=== PATIENT | female | born 1945 | race Caucasian/White ===

== ENCOUNTER 2016-09-02 15:45 | Observation (INO) ==
[2016-09-02] MEDS ORDERED: *HR* Morphine 2 MG/ML SYRINGE IVP ONE (16:19)
--- NOTE | 2016-09-02 16:36 | Emergency Department Note ---
Disposition Clinical Impression: UTI (urinary tract infection) Qualifiers: Urinary tract infection type: acute cystitis Hematuria presence: with hematuria Qualified Code(s): N30.01 - Acute cystitis with hematuria Fall Qualifiers: Encounter type: initial encounter Qualified Code(s): W19.XXXA - Unspecified fall, initial encounter Wrist pain Qualifiers: Laterality: right Qualified Code(s): M25.531 - Pain in right wrist Disposition: Admitted As Inpatient Condition: Fair Referrals: Emmett Perez MD [Partnered Physician] - Forms: ED Satisfaction Letter General Adult HPI - General Chief complaint: ED Fall Stated complaint: fall, R wrist, back injuries Time Seen by Provider: 09/02/16 16:11 Source: patient Mode of arrival: wheelchair Limitations: no limitations Nursing Notes Reviewed: Yes Vital Signs Reviewed: Yes - History of Present Illness HPI Narrative: 71-year-old female who reports that she has had a urinary tract infection for approximately 4 days. She describes it as being crampy suprapubic pain with difficulty with urination and burning. She states she has had this before. She does live at home with her daughter who works all the time and she is concerned about her safety at home she fell earlier today and injured her wrist. She came to her family practitioner who sent her to the emergency department. She states that she does not think she can live at home by herself anymore and would like be placed back in a nursing facility. She denies hitting her head or having any neck pain. She does state that she is having some low lumbar pain after the fall. Radiation: non-radiation Pain Severity: severe Pain Scale: 9 Consistency: constant Improves with: nothing Worsens with: movement Associated symptoms: Reports: denies other symptoms Treatments Prior to Arrival: none - Related Data Home Medications Medication Instructions Recorded Confirmed Aspirin Enteric Coated [Aspirin EC] 81 mg PO DAILY 02/20/16 07/10/16 Clopidogrel [Plavix] 75 mg PO DAILY 02/20/16 07/10/16 Duloxetine [Cymbalta] 30 mg PO DAILY 02/20/16 07/10/16 Gabapentin [Neurontin] 600 mg PO QID PRN 02/20/16 07/10/16 Mv,Calcium,Min/Iron/Folic/Vitk 1 tab PO DAILY 02/20/16 07/10/16 [Multi For Her Tablet] Potassium Chloride [K-Tab ER] 20 meq PO BID 02/20/16 07/10/16 TraZODone 50 - 100 mg PO HS 02/20/16 07/10/16 Nystatin/Triamcinolone CRM 1 appl TP QID 06/13/16 07/10/16 [Mycolog] Polyvinyl Alcohol/Povidone/Pf 1 drop OP TID 06/13/16 07/10/16 [Refresh Classic Eye Drops] Vit C/E/Zn/Coppr/Lutein/Zeaxan 1 cap PO DAILY 06/13/16 07/10/16 [Preservision Areds 2 Softgel] Ascorbate Calcium [Vitamin C] 500 mg PO DAILY 07/02/16 07/10/16 Cholecalciferol (Vitamin D3) 1,000 unit PO DAILY 07/02/16 07/10/16 [Vitamin D3] Cyanocobalamin (Vitamin B-12) 1,000 mcg PO DAILY 07/02/16 07/10/16 [Vitamin B12] Simvastatin [Zocor] 20 mg PO DAILY 07/02/16 07/10/16 Previous Rx's Medication Instructions Recorded ClonazePAM [Klonopin] 0.5 mg PO BID PRN #15 tablet 07/16/16 Cyclobenzaprine [Flexeril] 5 mg PO TID #45 tablet 07/16/16 Fludrocortisone Acetate [Florinef] 0.1 mg PO DAILY #30 tablet 07/16/16 HYDROcodone/Acet 7.5/325 mg [Orrum 1 tab PO Q6H PRN #20 tablet 07/16/16 7.5-325 mg] Mirtazapine [Remeron] 7.5 mg PO HS #15 tablet 07/16/16 Allergies Allergy/AdvReac Type Severity Reaction Status Date / Time Sulfa (Sulfonamide Allergy Rash Verified 06/13/16 06:51 Antibiotics) All systems ED: reviewed and negative except as stated. Constitutional: Denies: fever Eyes: Denies: vision change ENT ED: Denies: throat pain Cardiovascular: Denies: chest pain Respiratory: Denies: cough Gastrointestinal: Denies: abdominal pain Musculoskeletal: Reports: back pain. 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 Absent: tenderness - Chest Chest inspection: Present: normal inspection - Respiratory Respiratory exam: Present: normal lung sounds bilaterally. Absent: respiratory distress - Cardiovascular Cardiovascular exam: Present: regular rate, normal rhythm - Abdominal Exam Abdominal exam: Present: soft, tenderness (Suprapubic) - Extremities Exam Extremities exam: Present: other (Pain on palpation of the right distal forearm. No obvious deformity or contusion is present) - Expanded Lower Extremity Exam Hip/Pelvis exam: Present: normal inspection, full ROM. Absent: tenderness - Back Exam Back exam: Present: normal inspection, tenderness (Lower lumbar spinous process) - Neurological Exam Neurological exam: Present: alert, oriented X3 Course Course Narrative: I will do a radiograph of her wrists and her back. Also check a urinalysis and some basic blood work. She will likely need admitted due to unsafe living conditions at home and for probable treatment of a urinary tract infection. I am able to clear her cervical spine by Nexus criteria. She did not hit her head and is not on blood thinners. The cause of her fall was fatigue and her legs. - Reevaluation(s) Reevaluation #1: UTI is present. Labwork otherwise unremarkable. Accepted by [facility]. Vital Signs Temperature 98.2 F 09/02/16 15:56 Pulse Rate 118 09/02/16 15:56 Respiratory Rate 18 09/02/16 15:56 Blood Pressure 130/91 09/02/16 15:56 O2 Sat by Pulse Oximetry 97 09/02/16 15:56 Temperature 98.2 F 09/02/16 15:56 Pulse Rate 118 09/02/16 15:56 Respiratory Rate 18 01/30/17 15:56 Blood Pressure 130/91 01/30/17 15:56 O2 Sat by Pulse Oximetry 97 09/02/16 15:56 Oxygen Delivery Oxygen Delivery Room Air Medical Decision Making - Medical Records Medical records reviewed: Yes I reviewed the patient's medical records. - Lab Data Lab results reviewed: Yes I reviewed the patient's lab results. Result diagrams: 09/02/16 17:31 09/02/16 17:31 Lab Results 09/02/16 09/02/16 09/02/16 Range/Units 17:10 17:31 17:31 WBC 9.6 (4.3-11.1) K/mcL RBC 4.86 (3.82-4.97) M/mcL Hgb 14.8 (11.5-15.4) g/dL Hct 43.7 (35.3-44.9) % MCV 89.9 (83.0-100.0) fL MCH 30.5 (28.0-33.3) pg MCHC 33.9 (31.6-35.5) g/dL RDW 12.1 (11.5-14.5) % Plt Count 153 (140-400) K/mcL MPV 9.5 (9.4-12.4) fL Immature Gran % 0.3 (0-4) % Seg Neutrophils % 76.7 % Lymphocytes % 17.8 % Monocytes % 4.5 % Eosinophils % 0.5 % Basophils % 0.2 % Neutrophils # 7.3 (1.6-8.9) K/mcL Lymphocytes # 1.7 (0.6-4.6) K/mcL Monocytes # 0.4 (0.0-1.3) K/mcL Eosinophils # 0.1 (0.0-0.6) K/mcL Basophils # 0.0 (0.0-0.2) K/mcL Sodium 131 L (136-145) mEq/L Potassium 3.6 (3.5-4.5) mEq/L Chloride 92 L (98-109) mEq/L Carbon Dioxide 26 (19-29) mEq/L BUN 15 (7-20) mg/dL Creatinine 1.14 H (0.57-1.11) mg/dL Est GFR ( Amer) 57 L (> 60) Est GFR (Non-Af Amer) 47 L (> 60) BUN/Creatinine Ratio 13 (6-26) Glucose 108 H (70-99) mg/dL Calculated Osmolality 273 L (280-300) Calcium 9.8 (8.6-10.8) mg/dL Troponin I (0-0.03) ng/mL Lipase 22 (8-78) Units/L TSH 2.365 (0.350-4.840) mcIU/mL Urine Color Yellow (Yellow) Urine Clarity Cloudy A (Clear) Urine pH 6.5 (5.0-8.0) pH Units Ur Specific [place] 1.011 (1.010-1.025) Urine Protein Trace (Neg-Trace) mg/dL Urine Glucose (UA) Normal (Normal) mg/dL Urine Ketones Negative (Negative) mg/dL Urine Blood Trace H (Negative) Urine Nitrite Positive A (Negative) Urine Bilirubin Negative (Negative) Urine Urobilinogen Normal (Normal) mg/dL Ur Leukocyte Esterase Large H (Negative) Urine Microscopic RBC 3-5 H (0-3) per hpf Urine Microscopic WBC TNTC H (0-3) per hpf Ur Squamous Epith Cells Many H (None-Few) per lpf Urine Bacteria Many H (None-Few) per hpf Hyaline Casts None Seen (None-Few) per lpf Ur Culture Indicated? YES A (NO) 09/02/16 Range/Units 17:31 WBC (4.3-11.1) K/mcL RBC (3.82-4.97) M/mcL Hgb (11.5-15.4) g/dL Hct (35.3-44.9) % MCV (83.0-100.0) fL MCH (28.0-33.3) pg MCHC (31.6-35.5) g/dL RDW (11.5-14.5) % Plt Count (140-400) K/mcL MPV (9.4-12.4) fL Immature Gran % (0-4) % Seg Neutrophils % % Lymphocytes % % Monocytes % % Eosinophils % % Basophils % % Neutrophils # (1.6-8.9) K/mcL Lymphocytes # (0.6-4.6) K/mcL Monocytes # (0.0-1.3) K/mcL Eosinophils # (0.0-0.6) K/mcL Basophils # (0.0-0.2) K/mcL Sodium (136-145) mEq/L Potassium (3.5-4.5) mEq/L Chloride (98-109) mEq/L Carbon Dioxide (19-29) mEq/L BUN (7-20) mg/dL Creatinine (0.57-1.11) mg/dL Est GFR ( Amer) (> 60) Est GFR (Non-Af Amer) (> 60) BUN/Creatinine Ratio (6-26) Glucose (70-99) mg/dL Calculated Osmolality (280-300) Calcium (8.6-10.8) mg/dL Troponin I 0.02 (0-0.03) ng/mL Lipase (8-78) Units/L TSH (0.350-4.840) mcIU/mL Urine Color (Yellow) Urine Clarity (Clear) Urine pH (5.0-8.0) pH Units Ur Specific [place] (1.010-1.025) Urine Protein (Neg-Trace) mg/dL Urine Glucose (UA) (Normal) mg/dL Urine Ketones (Negative) mg/dL Urine Blood (Negative) Urine Nitrite (Negative) Urine Bilirubin (Negative) Urine Urobilinogen (Normal) mg/dL Ur Leukocyte Esterase (Negative) Urine Microscopic RBC (0-3) per hpf Urine Microscopic WBC (0-3) per hpf Ur Squamous Epith Cells (None-Few) per lpf Urine Bacteria (None-Few) per hpf Hyaline Casts (None-Few) per lpf Ur Culture Indicated? (NO) - Radiology Data Radiology results reviewed: Yes I reviewed the patient's radiology results.
[2016-09-02] MEDS ORDERED: 0.9 % Sodium Chloride 500 ML IVC ONE (16:37)
[2016-09-02 17:23] LABS: Bilirubin,Urine Negative (Negative); Blood,Urine Trace (Negative); Clarity,Urine Cloudy (Clear); Color,Urine Yellow (Yellow); Glucose,Urine (UA) Normal (Normal); Ketones,Urine Negative (Negative); Leukocyte Esterase,Urine Large (Negative); Nitrite,Urine Positive (Negative); PH,Urine 6.5 pH Units (5.0-8.0); Protein,Urine Trace mg/dL (Neg-Trace); Specific Gravity,Urine 1.011 (1.010-1.025); Urobilinogen,Urine Normal (Normal)
[2016-09-02 17:25] LABS: Bacteria,Urine Many per hpf (None-Few); Hyaline Casts,Urine None Seen per lpf (None-Few); Squamous Epithelial Cell,Urine Many per lpf (None-Few); WBC,Urine TNTC per hpf (0-3)
[2016-09-02 17:45] LABS: Basophils % 0.2 %; Eosinophils # 0.1 K/mcL (0.0-0.6); Eosinophils % 0.5 %; Hematocrit 43.7 % (35.3-44.9); Hemoglobin 14.8 g/dL (11.5-15.4); Immature Granulocytes % 0.3 % (0-4); Lymphocytes # 1.7 K/mcL (0.6-4.6); Lymphocytes % 17.8 %; Mean Corpuscular HGB Conc 33.9 g/dL (31.6-35.5); Mean Corpuscular Hemoglobin 30.5 pg (28.0-33.3); Mean Corpuscular Volume 89.9 fL (83.0-100.0); Mean Platelet Volume 9.5 fL (9.4-12.4); Monocytes # 0.4 K/mcL (0.0-1.3); Monocytes % 4.5 %; Neutrophils # 7.3 K/mcL (1.6-8.9); Platelet Count 153 K/mcL (140-400); Red Blood Count 4.86 M/mcL (3.82-4.97); Red Cell Distribution Width 12.1 % (11.5-14.5); Segmented Neutrophils % 76.7 %
[2016-09-02 17:52] LABS: Calcium 9.8 mg/dL (8.6-10.8); Potassium 3.6 mEq/L (3.5-4.5)
--- NOTE | 2016-09-02 18:10 | Emergency Department Note ---
Disposition Clinical Impression: UTI (urinary tract infection), Fall, Wrist pain Disposition: Admitted As Inpatient Condition: Fair General Adult HPI - General Chief complaint: ED Fall Stated complaint: fall, R wrist, back injuries Time Seen by Provider: 09/02/16 16:11 Source: patient Mode of arrival: wheelchair Limitations: no limitations - History of Present Illness Pain Scale: 9 Improves with: nothing Worsens with: movement Associated symptoms: Reports: denies other symptoms Treatments Prior to Arrival: none - Related Data Home Medications Medication Instructions Recorded Confirmed Aspirin Enteric Coated [Aspirin EC] 81 mg PO DAILY 02/20/16 09/02/16 Clopidogrel [Plavix] 75 mg PO DAILY 02/20/16 09/02/16 Duloxetine [Cymbalta] 30 mg PO DAILY 02/20/16 09/02/16 Gabapentin [Neurontin] 600 mg PO QID PRN 02/20/16 09/02/16 Mv,Calcium,Min/Iron/Folic/Vitk 1 tab PO DAILY 02/20/16 09/02/16 [Multi For Her Tablet] Potassium Chloride [K-Tab ER] 20 meq PO BID 02/20/16 09/02/16 TraZODone 50 - 100 mg PO HS 02/20/16 09/02/16 Nystatin/Triamcinolone CRM 1 appl TP QID 06/13/16 09/02/16 [Mycolog] Polyvinyl Alcohol/Povidone/Pf 1 drop OP BID 06/13/16 09/02/16 [Refresh Classic Eye Drops] Vit C/E/Zn/Coppr/Lutein/Zeaxan 1 cap PO DAILY 06/13/16 09/02/16 [Preservision Areds 2 Softgel] Ascorbate Calcium [Vitamin C] 500 mg PO DAILY 07/02/16 09/02/16 Cholecalciferol (Vitamin D3) 1,000 unit PO DAILY 07/02/16 09/02/16 [Vitamin D3] Cyanocobalamin (Vitamin B-12) 1,000 mcg PO DAILY 07/02/16 09/02/16 [Vitamin B12] Simvastatin [Zocor] 20 mg PO DAILY 07/02/16 09/02/16 Previous Rx's Medication Instructions Recorded ClonazePAM [Klonopin] 0.5 mg PO BID PRN #15 tablet 07/16/16 Cyclobenzaprine [Flexeril] 5 mg PO TID #45 tablet 07/16/16 Fludrocortisone Acetate [Florinef] 0.1 mg PO DAILY #30 tablet 07/16/16 HYDROcodone/Acet 7.5/325 mg [Coats 1 tab PO Q6H PRN #20 tablet 07/16/16 7.5-325 mg] Mirtazapine [Remeron] 7.5 mg PO HS #15 tablet 07/16/16 Allergies Allergy/AdvReac Type Severity Reaction Status Date / Time Sulfa (Sulfonamide Allergy Rash Verified 06/13/16 06:51 Antibiotics) Constitutional: Denies: fever Eyes: Denies: vision change ENT ED: Denies: throat pain Cardiovascular: Denies: chest pain Respiratory: Denies: cough Gastrointestinal: Denies: abdominal pain Musculoskeletal: Reports: back pain. 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 Tapia. Patient presents with weakness that severe enough that she is fallen to the ground. Today she injured her wrist and her back. We did x-rays and they were okay. However the concern is that she is so weak. This began progressively worsening over the past 4 days. Laboratory workup was normal except for the presence of an obvious urinary tract infection with a lot of white cells and bacteria and nitrates in the urine. Patient does report dramatic increase in urinary frequency and even urinary incontinence. We will start her on antibiotics for urinary tract infection. I patient needs to be admitted to the hospital because the infection is causing such we can she is falling down hurting her self. Furthermore the patient is unable to care for herself at home and may need to be going to a detention. We will have that evaluated while she is in hospital. Time: 18:09 Vital Signs Temperature 98.2 F 09/02/16 15:56 Pulse Rate 118 09/02/16 15:56 Respiratory Rate 18 09/02/16 15:56 Blood Pressure 130/91 09/02/16 15:56 O2 Sat by Pulse Oximetry 97 09/02/16 15:56 Temperature 98.2 F 09/03/16 14:54 Pulse Rate 74 09/03/16 14:54 Respiratory Rate 16 09/03/16 14:54 Blood Pressure 95/64 09/03/16 14:54 O2 Sat by Pulse Oximetry 91 L 09/03/16 14:54 Oxygen Delivery Oxygen Delivery Room Air Medical Decision Making - Lab Data Result diagrams: 09/02/16 17:31 09/02/16 17:31 Lab Results 09/02/16 09/02/16 09/02/16 Range/Units 17:10 17:31 17:31 WBC 9.6 (4.3-11.1) K/mcL RBC 4.86 (3.82-4.97) M/mcL Hgb 14.8 (11.5-15.4) g/dL Hct 43.7 (35.3-44.9) % MCV 89.9 (83.0-100.0) fL MCH 30.5 (28.0-33.3) pg MCHC 33.9 (31.6-35.5) g/dL RDW 12.1 (11.5-14.5) % Plt Count 153 (140-400) K/mcL MPV 9.5 (9.4-12.4) fL Immature Gran % 0.3 (0-4) % Seg Neutrophils % 76.7 % Lymphocytes % 17.8 % Monocytes % 4.5 % Eosinophils % 0.5 % Basophils % 0.2 % Neutrophils # 7.3 (1.6-8.9) K/mcL Lymphocytes # 1.7 (0.6-4.6) K/mcL Monocytes # 0.4 (0.0-1.3) K/mcL Eosinophils # 0.1 (0.0-0.6) K/mcL Basophils # 0.0 (0.0-0.2) K/mcL Sodium 131 L (136-145) mEq/L Potassium 3.6 (3.5-4.5) mEq/L Chloride 92 L (98-109) mEq/L Carbon Dioxide 26 (19-29) mEq/L BUN 15 (7-20) mg/dL Creatinine 1.14 H (0.57-1.11) mg/dL Est GFR ( Amer) 57 L (> 60) Est GFR (Non-Af Amer) 47 L (> 60) BUN/Creatinine Ratio 13 (6-26) Glucose 108 H (70-99) mg/dL Calculated Osmolality 273 L (280-300) Calcium 9.8 (8.6-10.8) mg/dL Total Bilirubin 1.0 (0.2-1.2) mg/dL Direct Bilirubin 0.4 (0.0-0.5) mg/dL Indirect Bilirubin 0.6 (0.0-1.2) mg/dL AST 24 (5-34) Units/L ALT 14 (0-55) Units/L Alkaline Phosphatase 83 (38-126) Units/L Troponin I (0-0.03) ng/mL Serum Total Protein 7.9 (6.0-8.3) g/dL Albumin 3.9 (3.5-5.0) g/dL Globulin 4.0 H (2.4-3.5) g/dL Albumin/Globulin Ratio 1.0 L (1.1-2.2) Lipase 22 (8-78) Units/L TSH 2.365 (0.350-4.840) mcIU/mL Urine Color Yellow (Yellow) Urine Clarity Cloudy A (Clear) Urine pH 6.5 (5.0-8.0) pH Units Ur Specific [place] 1.011 (1.010-1.025) Urine Protein Trace (Neg-Trace) mg/dL Urine Glucose (UA) Normal (Normal) mg/dL Urine Ketones Negative (Negative) mg/dL Urine Blood Trace H (Negative) Urine Nitrite Positive A (Negative) Urine Bilirubin Negative (Negative) Urine Urobilinogen Normal (Normal) mg/dL Ur Leukocyte Esterase Large H (Negative) Urine Microscopic RBC 3-5 H (0-3) per hpf Urine Microscopic WBC TNTC H (0-3) per hpf Ur Squamous Epith Cells Many H (None-Few) per lpf Urine Bacteria Many H (None-Few) per hpf Hyaline Casts None Seen (None-Few) per lpf Ur Culture Indicated? YES A (NO) Carbamazepine 0.0 L (4.0-12.0) mcg/mL 09/02/16 Range/Units 17:31 WBC (4.3-11.1) K/mcL RBC (3.82-4.97) M/mcL Hgb (11.5-15.4) g/dL Hct (35.3-44.9) % MCV (83.0-100.0) fL MCH (28.0-33.3) pg MCHC (31.6-35.5) g/dL RDW (11.5-14.5) % Plt Count (140-400) K/mcL MPV (9.4-12.4) fL Immature Gran % (0-4) % Seg Neutrophils % % Lymphocytes % % Monocytes % % Eosinophils % % Basophils % % Neutrophils # (1.6-8.9) K/mcL Lymphocytes # (0.6-4.6) K/mcL Monocytes # (0.0-1.3) K/mcL Eosinophils # (0.0-0.6) K/mcL Basophils # (0.0-0.2) K/mcL Sodium (136-145) mEq/L Potassium (3.5-4.5) mEq/L Chloride (98-109) mEq/L Carbon Dioxide (19-29) mEq/L BUN (7-20) mg/dL Creatinine (0.57-1.11) mg/dL Est GFR ( Amer) (> 60) Est GFR (Non-Af Amer) (> 60) BUN/Creatinine Ratio (6-26) Glucose (70-99) mg/dL Calculated Osmolality (280-300) Calcium (8.6-10.8) mg/dL Total Bilirubin (0.2-1.2) mg/dL Direct Bilirubin (0.0-0.5) mg/dL Indirect Bilirubin (0.0-1.2) mg/dL AST (5-34) Units/L ALT (0-55) Units/L Alkaline Phosphatase (38-126) Units/L Troponin I 0.02 (0-0.03) ng/mL Serum Total Protein (6.0-8.3) g/dL Albumin (3.5-5.0) g/dL Globulin (2.4-3.5) g/dL Albumin/Globulin Ratio (1.1-2.2) Lipase (8-78) Units/L TSH (0.350-4.840) mcIU/mL Urine Color (Yellow) Urine Clarity (Clear) Urine pH (5.0-8.0) pH Units Ur Specific [place] (1.010-1.025) Urine Protein (Neg-Trace) mg/dL Urine Glucose (UA) (Normal) mg/dL Urine Ketones (Negative) mg/dL Urine Blood (Negative) Urine Nitrite (Negative) Urine Bilirubin (Negative) Urine Urobilinogen (Normal) mg/dL Ur Leukocyte Esterase (Negative) Urine Microscopic RBC (0-3) per hpf Urine Microscopic WBC (0-3) per hpf Ur Squamous Epith Cells (None-Few) per lpf Urine Bacteria (None-Few) per hpf Hyaline Casts (None-Few) per lpf Ur Culture Indicated? (NO) Carbamazepine (4.0-12.0) mcg/mL Attestation Statement - Attestation Attestation: I, Dr. Anderson, examined this patient [id number] and my medical decision- making was reviewed with Dr. Tapia, Resident Physician. I agree with the documented findings, disposition and treatment plan as described except to the extent set forth below. Please see my progress note for details.
[2016-09-02 18:12] LABS: Thyroid Stimulating Hormone 2.365 mcIU/mL (0.350-4.840)
[2016-09-02 19:46] LABS: Albumin 3.9 g/dL (3.5-5.0); Bilirubin,Direct 0.4 mg/dL (0.0-0.5); Bilirubin,Indirect 0.6 mg/dL (0.0-1.2); Total Protein 7.9 g/dL (6.0-8.3)
[2016-09-02] MEDS ORDERED: Naloxone 0.4 MG/ML INJ IVP PRN (22:34)
[2016-09-02] MEDS ORDERED: Ondansetron 4 MG/2 ML VIAL IVP PRN (22:34)
[2016-09-02] MEDS ORDERED: Gabapentin 300 MG CAPSULE PO PRN (23:04)
[2016-09-02] MEDS: 0.9 % Sodium Chloride 1,000 ML IVC SCH (23:21)
[2016-09-02] MEDS ORDERED: *HR* Morphine 2 MG/ML SYRINGE IVP PRN (23:30)
[2016-09-02] MEDS: *HR* HYDROcodone/Acet 5/325 mg TABLET PO PRN (23:59)
[2016-09-02] MEDS: clonazePAM 0.5 MG TABLET PO PRN (23:59)
[2016-09-03] MEDS: *HR* HYDROcodone/Acet 5/325 mg TABLET PO PRN ×3 (04:00→17:29)
[2016-09-03] MEDS: Ascorbic Acid 500 MG TABLET PO SCH (09:04)
[2016-09-03] MEDS: Cyanocobalamin (B-12) 1,000 MCG TABLET PO SCH (09:05)
[2016-09-03] MEDS: Cholecalciferol (D-3) 1,000 UNIT TABLET PO SCH (09:05)
[2016-09-03] MEDS: Aspirin Enteric Coated 81 MG Tablet PO SCH (09:05)
[2016-09-03] MEDS: PRESERVISION AREDS PO SCH (09:07)
[2016-09-03] MEDS: Multivit/Ca/Min/Fe/FA 1 TAB TABLET PO SCH (09:07)
[2016-09-03] MEDS: Artificial Tears SOLN 15 ML BOTTLE OP SCH ×2 (09:19→21:44)
[2016-09-03] MEDS: clonazePAM 0.5 MG TABLET PO PRN (10:50)
--- NOTE | 2016-09-03 11:22 | Internal Med History&Physical ---
Date of Encounter: 09/02/16 Time of Encounter: 21:30 Assessment and Plan (1) Right wrist sprain Status: Acute Qualifiers: Encounter type: initial encounter Qualified Code(s): S63.501A - Unspecified sprain of right wrist, initial encounter (2) Falls Status: Acute Qualifiers: Encounter type: initial encounter Qualified Code(s): W19.XXXA - Unspecified fall, initial encounter (3) Weakness Status: Acute Fall likely related to UTI Supportive care F/U urine culture, start cEFTRIAXONE Apply splint to right wrist. She request placement to SNF oil well services field supervisor consult, PT/OT for evaluation Continue other medications of chronic morbidities. (4) Coronary artery disease Status: Chronic Qualifiers: Coronary Disease-Associated Artery/Lesion type: [place] artery [place] vs. transplanted heart: [place] heart Associated angina: without angina Qualified Code(s): I25.10 - Atherosclerotic heart disease of [place] coronary artery without angina pectoris (5) Depression Status: Chronic Qualifiers: Depression Type: unspecified Qualified Code(s): F32.9 - Major depressive disorder, single episode, unspecified (6) HTN (hypertension) Status: Chronic Qualifiers: Hypertension type: essential hypertension Qualified Code(s): I10 - Essential (primary) hypertension (7) UTI (urinary tract infection) Status: Acute Qualifiers: Urinary tract infection type: acute cystitis Hematuria presence: without hematuria Qualified Code(s): N30.00 - Acute cystitis without hematuria Internal Medicine - H&P: HPI Chief complaint: Fall, wrist pain x 1 day Admitted From: Emergency Dept Plans for Post Hospital Care: Transfer [facility] Facility History of present illness: Ms. Loera is a 71 year old female who was referred for evaluation by her PCP after a fall. The patient reports she has fallen a couple of times the past four days, se fell agian today and now has right wrist pain and swelling. She reports suprapubic pain/fullness and some dysuria. She reports left lower back pain after her fall. No back or flank pain before her call. No fever, no nausea or vomiting. She did not hit her head or lose consciousness. No weakness in any extremity, but she reports she now has an unsteady gait and has fear for walking , thinking she will fall. She reports right wrist pain and swelling. Wrist pain is aggravated by movement and relieved by resting the wrist. No headaches, blurry vision, dizziness. No chest pain,no SOB, no palpitation. No N/V/D, no fever, chills or rigors. No new rash, no sick contacts, no recent travel. She lives with her daughter. She has agreed with her daughter that for now, her risk of falling is rather high, and they both agreed she needs temporary placement in [facility]. She thinks she has UTI. She is FULL CODE as per discussion. She nominates her daughter as her NOK/POA. a 10-point ROS was performed, positives and relevant negatives are detailed, system-symptom not mentioned is assumed negative unless otherwise stated. Vital Signs Temperature 98.2 F 09/02/16 15:56 Pulse Rate 118 09/02/16 15:56 Respiratory Rate 18 09/02/16 15:56 Blood Pressure 130/91 09/02/16 15:56 O2 Sat by Pulse Oximetry 97 09/02/16 15:56 Temperature 98.2 F 09/02/16 15:56 Pulse Rate 118 09/02/16 15:56 Respiratory Rate 18 09/02/16 15:56 Blood Pressure 130/91 09/02/16 15:56 O2 Sat by Pulse Oximetry 97 09/02/16 15:56 Lab Results 09/02/16 09/02/16 09/02/16 Range/Units 17:10 17:31 17:31 WBC 9.6 (4.3-11.1) K/mcL RBC 4.86 (3.82-4.97) M/mcL Hgb 14.8 (11.5-15.4) g/dL Hct 43.7 (35.3-44.9) % MCV 89.9 (83.0-100.0) fL MCH 30.5 (28.0-33.3) pg MCHC 33.9 (31.6-35.5) g/dL RDW 12.1 (11.5-14.5) % Plt Count 153 (140-400) K/mcL MPV 9.5 (9.4-12.4) fL Immature Gran % 0.3 (0-4) % Seg Neutrophils % 76.7 % Lymphocytes % 17.8 % Monocytes % 4.5 % Eosinophils % 0.5 % Basophils % 0.2 % Neutrophils # 7.3 (1.6-8.9) K/mcL Lymphocytes # 1.7 (0.6-4.6) K/mcL Monocytes # 0.4 (0.0-1.3) K/mcL Eosinophils # 0.1 (0.0-0.6) K/mcL Basophils # 0.0 (0.0-0.2) K/mcL Sodium 131 L (136-145) mEq/L Potassium 3.6 (3.5-4.5) mEq/L Chloride 92 L (98-109) mEq/L Carbon Dioxide 26 (19-29) mEq/L BUN 15 (7-20) mg/dL Creatinine 1.14 H (0.57-1.11) mg/dL Est GFR ( Amer) 57 L (> 60) Est GFR (Non-Af Amer) 47 L (> 60) BUN/Creatinine Ratio 13 (6-26) Glucose 108 H (70-99) mg/dL Calculated Osmolality 273 L (280-300) Calcium 9.8 (8.6-10.8) mg/dL Total Bilirubin 1.0 (0.2-1.2) mg/dL Direct Bilirubin 0.4 (0.0-0.5) mg/dL Indirect Bilirubin 0.6 (0.0-1.2) mg/dL AST 24 (5-34) Units/L ALT 14 (0-55) Units/L Alkaline Phosphatase 83 (38-126) Units/L Troponin I (0-0.03) ng/mL Serum Total Protein 7.9 (6.0-8.3) g/dL Albumin 3.9 (3.5-5.0) g/dL Globulin 4.0 H (2.4-3.5) g/dL Albumin/Globulin Ratio 1.0 L (1.1-2.2) Lipase 22 (8-78) Units/L TSH 2.365 (0.350-4.840) mcIU/mL Urine Color Yellow (Yellow) Urine Clarity Cloudy A (Clear) Urine pH 6.5 (5.0-8.0) pH Units Ur Specific [place] 1.011 (1.010-1.025) Urine Protein Trace (Neg-Trace) mg/dL Urine Glucose (UA) Normal (Normal) mg/dL Urine Ketones Negative (Negative) mg/dL Urine Blood Trace H (Negative) Urine Nitrite Positive A (Negative) Urine Bilirubin Negative (Negative) Urine Urobilinogen Normal (Normal) mg/dL Ur Leukocyte Esterase Large H (Negative) Urine Microscopic RBC 3-5 H (0-3) per hpf Urine Microscopic WBC TNTC H (0-3) per hpf Ur Squamous Epith Cells Many H (None-Few) per lpf Urine Bacteria Many H (None-Few) per hpf Hyaline Casts None Seen (None-Few) per lpf Ur Culture Indicated? YES A (NO) Carbamazepine 0.0 L (4.0-12.0) mcg/mL 09/02/16 Range/Units 17:31 WBC (4.3-11.1) K/mcL RBC (3.82-4.97) M/mcL Hgb (11.5-15.4) g/dL Hct (35.3-44.9) % MCV (83.0-100.0) fL MCH (28.0-33.3) pg MCHC (31.6-35.5) g/dL RDW (11.5-14.5) % Plt Count (140-400) K/mcL MPV (9.4-12.4) fL Immature Gran % (0-4) % Seg Neutrophils % % Lymphocytes % % Monocytes % % Eosinophils % % Basophils % % Neutrophils # (1.6-8.9) K/mcL Lymphocytes # (0.6-4.6) K/mcL Monocytes # (0.0-1.3) K/mcL Eosinophils # (0.0-0.6) K/mcL Basophils # (0.0-0.2) K/mcL Sodium (136-145) mEq/L Potassium (3.5-4.5) mEq/L Chloride (98-109) mEq/L Carbon Dioxide (19-29) mEq/L BUN (7-20) mg/dL Creatinine (0.57-1.11) mg/dL Est GFR ( Amer) (> 60) Est GFR (Non-Af Amer) (> 60) BUN/Creatinine Ratio (6-26) Glucose (70-99) mg/dL Calculated Osmolality (280-300) Calcium (8.6-10.8) mg/dL Total Bilirubin (0.2-1.2) mg/dL Direct Bilirubin (0.0-0.5) mg/dL Indirect Bilirubin (0.0-1.2) mg/dL AST (5-34) Units/L ALT (0-55) Units/L Alkaline Phosphatase (38-126) Units/L Troponin I 0.02 (0-0.03) ng/mL Serum Total Protein (6.0-8.3) g/dL Albumin (3.5-5.0) g/dL Globulin (2.4-3.5) g/dL Albumin/Globulin Ratio (1.1-2.2) Lipase (8-78) Units/L TSH (0.350-4.840) mcIU/mL Urine Color (Yellow) Urine Clarity (Clear) Urine pH (5.0-8.0) pH Units Ur Specific [place] (1.010-1.025) Urine Protein (Neg-Trace) mg/dL Urine Glucose (UA) (Normal) mg/dL Urine Ketones (Negative) mg/dL Urine Blood (Negative) Urine Nitrite (Negative) Urine Bilirubin (Negative) Urine Urobilinogen (Normal) mg/dL Ur Leukocyte Esterase (Negative) Urine Microscopic RBC (0-3) per hpf Urine Microscopic WBC (0-3) per hpf Ur Squamous Epith Cells (None-Few) per lpf Urine Bacteria (None-Few) per hpf Hyaline Casts (None-Few) per lpf Ur Culture Indicated? (NO) Carbamazepine (4.0-12.0) mcg/mL Lumbar xray: Degenerative changes R wrist xray: no acute fracture or dislocation, no focal osseus anomaly. Chest xray: No acyte cardiopulmionary disease. Past Med Surg Social Fam HX - Past Medical History Medical history: arthritis, coronary artery disease, CVA, hyperlipidemia, hypertension, migraine, peripheral artery disease Psychiatric history: anxiety, depression - Past Surgical History Surgical History: carotid endarterectomy, cholecystectomy, other, vascular surgery - Social History Smoking Status: Current every day smoker Packs per day: 0.10 Smokeless Tobacco Status: No Alcohol use: none Drug use: none - Family History Father Adopted: [place]: [place] Family Member Ethnicity: Non- Living Status: Age at : 65 Cause of : HEART ATTACK Hx Family Cardiac Disorders: Yes Mother Living Status: Hx Family Cardiac Disorders: Yes (heart strokes) Hx Family Cancer: Yes (colon cancer) Hx Family Endocrine Disorder: Yes Internal Medicine - H&P: Meds Aspirin Enteric Coated [Aspirin EC] 81 mg PO DAILY 02/20/16 [History] Clopidogrel [Plavix] 75 mg PO DAILY 02/20/16 [History] Gabapentin [Neurontin] 600 mg PO QID PRN 02/20/16 [History] Mv,Calcium,Min/Iron/Folic/Vitk [Multi For Her Tablet] 1 tab PO DAILY 02/20/16 [ History] Potassium Chloride [K-Tab ER] 20 meq PO BID 02/20/16 [History] Nystatin/Triamcinolone CRM [Mycolog] 1 appl TP QID 06/13/16 [History] Polyvinyl Alcohol/Povidone/Pf [Refresh Classic Eye Drops] 1 drop OP BID [History] Vit C/E/Zn/Coppr/Lutein/Zeaxan [Preservision Areds 2 Softgel] 1 cap PO DAILY 05/19 [History] Ascorbate Calcium [Vitamin C] 500 mg PO DAILY 07/02/16 [History] Cholecalciferol (Vitamin D3) [Vitamin D3] 1,000 unit PO DAILY 07/02/16 [History] Cyanocobalamin (Vitamin B-12) [Vitamin B12] 1,000 mcg PO DAILY 07/02/16 [History ] Simvastatin [Zocor] 20 mg PO DAILY 07/02/16 [History] ClonazePAM [Klonopin] 0.5 mg PO BID PRN #15 tablet 07/16/16 [Rx] Fludrocortisone Acetate [Florinef] 0.1 mg PO DAILY #30 tablet 07/16/16 [Rx] HYDROcodone/Acet 7.5/325 mg [[place] 7.5-325 mg] 1 tab PO Q6H PRN #20 tablet 07/16 [Rx] Mirtazapine [Remeron] 7.5 mg PO HS #15 tablet 07/16/16 [Rx] Cefdinir [Omnicef] 300 mg PO BID #6 capsule 09/05/16 [Rx] Cyclobenzaprine [Flexeril] 5 mg PO TID #30 tablet 09/05/16 [Rx] Duloxetine [Cymbalta] 30 mg PO DAILY #20 09/05/16 [Rx] TraZODone 50 mg PO HS #20 tablet 09/05/16 [Rx] Allergies Sulfa (Sulfonamide Antibiotics) Allergy (Verified 06/13/16 06:51) Rash All Systems PM: A 10-system review of systems was performed and is negative for pertinent findings except as documented above in the HPI. - Constitutional Constitutional: as per HPI - EENT Eyes: as per HPI Ears: as per HPI - Breasts Breasts: as per HPI - Cardiovascular Cardiovascular ROS IM: as per HPI - Respiratory Respiratory: as per HPI - Gastrointestinal Gastrointestinal: as per HPI - Genitourinary Genitourinary: as per HPI Menstruation: as per HPI - Musculoskeletal Musculoskeletal ROS IM: as per HPI - Integumentary Integumentary IM: as per HPI - Neurological Neurological ROS: as per HPI - Psychiatric Psychiatric: as per HPI - Endocrine Endocrine IM: as per HPI - Hematologic/Lymphatic Hematologic/Lymphatic: as per HPI - Allergic/Immunologic Allergic/Immunologic: as per HPI - Constitutional Vitals: Temp Pulse Resp BP Pulse Ox 98.1 F 80 16 82/57 94 L 09/03/16 07:11 09/03/16 07:11 09/03/16 07:11 09/03/16 07:11 09/03/16 07:11 - Head Head exam: Present: atraumatic - Eye Eye exam: Present: EOMI, PERRL, conjuntiva pink Pupils: Present: PERRL - Neck Neck exam general surgery: Present: full ROM, supple. Absent: lymphadenopathy, normal inspection, tenderness, nuchal rigidity - Respiratory Respiratory exam: Present: CTAB - Cardiovascular Cardiovascular exam: Present: RRR, +S1, +S2 - GI/Abdominal GI/Abdominal exam: Present: soft. Absent: guarding, mass, rebound, splenomegaly , tenderness - Additional comments: noflank tenderness, no CVA TENDERNESS, NO SUPRAPUBIC TENDERNESS. - Back Exam Back exam: Present: normal inspection. Absent: CVA tenderness (L), CVA tenderness (R), muscle spasm Additional comments: RIGHT WRIST SWOLLEN, FAIR RANGE OF MOVEMENT. nEGATIVE DISTRACTION TEST. Internal Med - H&P Results - Labs CBC & Chem 7: 09/02/16 17:31 09/02/16 17:31
[2016-09-03] MEDS: *HR* Heparin 5,000 UNIT/ML VIAL SQ SCH (17:30)
--- NOTE | 2016-09-03 21:17 | Electrocardiograph Report ---
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
[2016-09-03] MEDS: traZODone 50 MG TABLET PO SCH (21:43)
[2016-09-04] MEDS: *HR* HYDROcodone/Acet 5/325 mg TABLET PO PRN ×4 (01:06→20:34)
[2016-09-04] MEDS: Nicotine 14 MG PATCH.TD24 TD SCH ×2 (01:06→21:53)
[2016-09-04] MEDS: 0.9 % Sodium Chloride 1,000 ML IVC SCH ×3 (04:08→20:34)
[2016-09-04] MEDS: *HR* Heparin 5,000 UNIT/ML VIAL SQ SCH ×2 (06:23→20:46)
[2016-09-04] MEDS: clonazePAM 0.5 MG TABLET PO PRN ×2 (07:19→20:34)
[2016-09-04] MEDS: Ascorbic Acid 500 MG TABLET PO SCH (10:01)
[2016-09-04] MEDS: Aspirin Enteric Coated 81 MG Tablet PO SCH (10:01)
[2016-09-04] MEDS: Multivit/Ca/Min/Fe/FA 1 TAB TABLET PO SCH (10:01)
[2016-09-04] MEDS: Cholecalciferol (D-3) 1,000 UNIT TABLET PO SCH (10:01)
[2016-09-04] MEDS: Cyanocobalamin (B-12) 1,000 MCG TABLET PO SCH (10:01)
[2016-09-04] MEDS: Artificial Tears SOLN 15 ML BOTTLE OP SCH ×2 (10:03→20:55)
[2016-09-04] MEDS: PRESERVISION AREDS PO SCH (10:12)
--- NOTE | 2016-09-04 15:30 | Internal Med Progress Note ---
Date of Encounter: 09/04/16 Time of Encounter: 15:29 - Assessment and plan (1) Fall Status: Acute Assessment and plan: Noted to sustain multiple falls at home due to generalized weakness. Physical and occupational therapy evaluation recommended placement in extended care facility. environmental services assistant working on the same. Supportive care and fall precautions. Qualifiers: Encounter type: initial encounter Qualified Code(s): W19.XXXA - Unspecified fall, initial encounter (2) UTI (urinary tract infection) Status: Acute Assessment and plan: Urinalysis showed cloudy urine with positive nitrite and leukocyte esterase, too numerous to count WBCs. Urine culture grows gram-negative rods. Continue IV Rocephin and follow up final urine culture. Qualifiers: Urinary tract infection type: acute cystitis Hematuria presence: without hematuria Qualified Code(s): N30.00 - Acute cystitis without hematuria (3) Wrist pain Status: Acute Assessment and plan: Reports right wrist pain and some swelling due to recent fall. X-ray done in the emergency room shows no acute fractures. Pain controlled with when necessary hydrocodone and Tylenol. Qualifiers: Laterality: right Qualified Code(s): M25.531 - Pain in right wrist (4) Coronary artery disease Status: Chronic Qualifiers: Coronary Disease-Associated Artery/Lesion type: [place] artery [place] vs. transplanted heart: [place] heart Associated angina: without angina Qualified Code(s): I25.10 - Atherosclerotic heart disease of [place] coronary artery without angina pectoris (5) Depression Status: Chronic Qualifiers: Depression Type: unspecified Qualified Code(s): F32.9 - Major depressive disorder, single episode, unspecified (6) HTN (hypertension) Status: Chronic Assessment and plan: Blood pressure noted to be well controlled. Continue home medications. Qualifiers: Hypertension type: essential hypertension Qualified Code(s): I10 - Essential (primary) hypertension - Subjective Interval history: Feels well; no nausea, vomiting, abdominal pain; improving urinary symptoms; still has chronic low back pain and right wrist pain due to recent fall at home; - Constitutional Vitals: Temp Pulse Resp BP Pulse Ox 98.2 F 84 16 122/85 93 L 09/04/16 11:58 09/04/16 11:58 09/04/16 11:58 09/04/16 11:58 09/04/16 11:58 General appearance: Present: A&O X 3, answers questions appropriately - Respiratory Respiratory exam: Present: CTAB. Absent: accessory muscle use, rales, rhonchi, wheezes - Cardiovascular Cardiovascular exam: Present: RRR, +S1, +S2. Absent: diastolic murmur, gallop, rubs, systolic murmur - GI/Abdominal GI/Abdominal exam: Present: normal bowel sounds, soft, no peritoneal signs. Absent: distended, tenderness Internal Medicine: Result - Labs CBC & Chem 7: 09/02/16 17:31 09/02/16 17:31 Consult Discharge Plan - Plan Referrals: Emmett Perez MD [Primary Care Provider] - Prescriptions: Cefdinir [Omnicef] 300 mg PO BID #6 capsule TraZODone 50 mg PO HS #20 tablet
[2016-09-04] MEDS: traZODone 50 MG TABLET PO SCH (20:34)
[2016-09-05] MEDS: *HR* HYDROcodone/Acet 5/325 mg TABLET PO PRN ×2 (05:57→20:35)
[2016-09-05] MEDS: *HR* Heparin 5,000 UNIT/ML VIAL SQ SCH ×2 (06:01→18:14)
[2016-09-05] MEDS: Ascorbic Acid 500 MG TABLET PO SCH (08:01)
[2016-09-05] MEDS: Cholecalciferol (D-3) 1,000 UNIT TABLET PO SCH (08:02)
[2016-09-05] MEDS: PRESERVISION AREDS PO SCH (08:02)
[2016-09-05] MEDS: Aspirin Enteric Coated 81 MG Tablet PO SCH (08:02)
[2016-09-05] MEDS: Cyanocobalamin (B-12) 1,000 MCG TABLET PO SCH (08:02)
[2016-09-05] MEDS: Multivit/Ca/Min/Fe/FA 1 TAB TABLET PO SCH (08:02)
[2016-09-05] MEDS: Artificial Tears SOLN 15 ML BOTTLE OP SCH (08:03)
--- NOTE | 2016-09-05 17:40 | Physician Discharge Referral ---
ExtendedCare Referral Info Transfer To: [facility] Provider in Charge: Sunshine Gaytan Provider in Charge after Transfer: PCP Institutional Level of Care: Skilled - Diagnosis (1) Fall Priority: Primary Status: Acute (2) UTI (urinary tract infection) Priority: Primary Status: Acute (3) Wrist pain Priority: Primary Status: Acute (4) Coronary artery disease Priority: Secondary Status: Chronic (5) Depression Priority: Secondary Status: Chronic (6) HTN (hypertension) Priority: Secondary Status: Inactive Expected Duration of Placement: 3 weeks Prognosis: Good Aware of Diagnosis: Patient, Family Aware of Prognosis: Patient, Family - Transfer Medications Prescriptions: Cefdinir [Omnicef] 300 mg PO BID #6 capsule Home Medications: Aspirin Enteric Coated [Aspirin EC] 81 mg PO DAILY 02/20/16 [History] Clopidogrel [Plavix] 75 mg PO DAILY 02/20/16 [History] Duloxetine [Cymbalta] 30 mg PO DAILY 02/20/16 [History] Gabapentin [Neurontin] 600 mg PO QID PRN 02/20/16 [History] Mv,Calcium,Min/Iron/Folic/Vitk [Multi For Her Tablet] 1 tab PO DAILY 02/20/16 [ History] Potassium Chloride [K-Tab ER] 20 meq PO BID 02/20/16 [History] TraZODone 50 - 100 mg PO HS 02/20/16 [History] Nystatin/Triamcinolone CRM [Mycolog] 1 appl TP QID 06/13/16 [History] Polyvinyl Alcohol/Povidone/Pf [Refresh Classic Eye Drops] 1 drop OP BID [History] Vit C/E/Zn/Coppr/Lutein/Zeaxan [Preservision Areds 2 Softgel] 1 cap PO DAILY 05/19 [History] Ascorbate Calcium [Vitamin C] 500 mg PO DAILY 07/02/16 [History] Cholecalciferol (Vitamin D3) [Vitamin D3] 1,000 unit PO DAILY 07/02/16 [History] Cyanocobalamin (Vitamin B-12) [Vitamin B12] 1,000 mcg PO DAILY 07/02/16 [History ] Simvastatin [Zocor] 20 mg PO DAILY 07/02/16 [History] ClonazePAM [Klonopin] 0.5 mg PO BID PRN #15 tablet 07/16/16 [Rx] Cyclobenzaprine [Flexeril] 5 mg PO TID #45 tablet 07/16/16 [Rx] Fludrocortisone Acetate [Florinef] 0.1 mg PO DAILY #30 tablet 07/16/16 [Rx] HYDROcodone/Acet 7.5/325 mg [[place] 7.5-325 mg] 1 tab PO Q6H PRN #20 tablet 07/16 [Rx] Mirtazapine [Remeron] 7.5 mg PO HS #15 tablet 07/16/16 [Rx] Cefdinir [Omnicef] 300 mg PO BID #6 capsule 09/05/16 [Rx] Allergies/Adverse Reactions: Allergies Sulfa (Sulfonamide Antibiotics) Allergy (Verified 06/13/16 06:51) Rash - Respiratory Orders Smoking Cessation: Smoking cessation has been advised. For more information, call the [place] Tobacco Quit Line at 0-902-YESD-NOW. - Advance Directives Code Status: DNR-Arrest/Don't Intubate - Mobility Orders Ambulate - Rehabiliation Orders Rehab Potential: Fair Rehab Orders: ROM Exercises, Evaluation for Physical Therapy, Evaluation for Occupational Therapy - Diet Orders No Added Salt (KENTRELL), Renal CERTIFICATION: I certify that the transfer of the above named patient to an Extended Care Facility is necessary for the continuing treatment of the diagnosis listed. The above information is true and accurate reflection of patient's current condition. Confidential - Redisclosure prohibited without a patient's written consent.
--- NOTE | 2016-09-05 17:44 | Discharge Summary ---
Date of Encounter: 09/05/16 Time of Encounter: 17:41 - Discharge Diagnosis (1) Fall Priority: Primary Status: Acute Qualifiers: Encounter type: initial encounter Qualified Code(s): W19.XXXA - Unspecified fall, initial encounter (2) UTI (urinary tract infection) Priority: Primary Status: Acute Qualifiers: Urinary tract infection type: acute cystitis Hematuria presence: without hematuria Qualified Code(s): N30.00 - Acute cystitis without hematuria (3) Wrist pain Priority: Primary Status: Acute Qualifiers: Laterality: right Qualified Code(s): M25.531 - Pain in right wrist (4) Coronary artery disease Priority: Secondary Status: Chronic Qualifiers: Coronary Disease-Associated Artery/Lesion type: unspecified vessel or lesion type [place] vs. transplanted heart: [place] heart Associated angina: without angina Qualified Code(s): I25.10 - Atherosclerotic heart disease of [place] coronary artery without angina pectoris (5) Depression Priority: Secondary Status: Chronic Qualifiers: Depression Type: unspecified Qualified Code(s): F32.9 - Major depressive disorder, single episode, unspecified (6) HTN (hypertension) Priority: Secondary Status: Chronic Qualifiers: Hypertension type: essential hypertension Qualified Code(s): I10 - Essential (primary) hypertension - Discharge Medications Prescriptions: Cefdinir [Omnicef] 300 mg PO BID #6 capsule TraZODone 50 mg PO HS #20 tablet Home Medications: Aspirin Enteric Coated [Aspirin EC] 81 mg PO DAILY 02/20/16 [History] Clopidogrel [Plavix] 75 mg PO DAILY 02/20/16 [History] Gabapentin [Neurontin] 600 mg PO QID PRN 02/20/16 [History] Mv,Calcium,Min/Iron/Folic/Vitk [Multi For Her Tablet] 1 tab PO DAILY 02/20/16 [ History] Potassium Chloride [K-Tab ER] 20 meq PO BID 02/20/16 [History] Nystatin/Triamcinolone CRM [Mycolog] 1 appl TP QID 06/13/16 [History] Polyvinyl Alcohol/Povidone/Pf [Refresh Classic Eye Drops] 1 drop OP BID [History] Vit C/E/Zn/Coppr/Lutein/Zeaxan [Preservision Areds 2 Softgel] 1 cap PO DAILY 05/19 [History] Ascorbate Calcium [Vitamin C] 500 mg PO DAILY 07/02/16 [History] Cholecalciferol (Vitamin D3) [Vitamin D3] 1,000 unit PO DAILY 07/02/16 [History] Cyanocobalamin (Vitamin B-12) [Vitamin B12] 1,000 mcg PO DAILY 07/02/16 [History ] Simvastatin [Zocor] 20 mg PO DAILY 07/02/16 [History] ClonazePAM [Klonopin] 0.5 mg PO BID PRN #15 tablet 07/16/16 [Rx] Fludrocortisone Acetate [Florinef] 0.1 mg PO DAILY #30 tablet 07/16/16 [Rx] HYDROcodone/Acet 7.5/325 mg [[place] 7.5-325 mg] 1 tab PO Q6H PRN #20 tablet 07/16 [Rx] Mirtazapine [Remeron] 7.5 mg PO HS #15 tablet 07/16/16 [Rx] Cefdinir [Omnicef] 300 mg PO BID #6 capsule 09/05/16 [Rx] Cyclobenzaprine [Flexeril] 5 mg PO TID #30 tablet 09/05/16 [Rx] Duloxetine [Cymbalta] 30 mg PO DAILY #20 09/05/16 [Rx] TraZODone 50 mg PO HS #20 tablet 09/05/16 [Rx] Allergies/Adverse Reactions: Allergies Sulfa (Sulfonamide Antibiotics) Allergy (Verified 06/13/16 06:51) Rash Date of admission: 09/02/16 18:44 Primary care physician: Emmett Perez MD Consults: 09/02/16 22:42 Consult to Occupational Therapy [CONS] Routine Comment: Evaluate, develop and implement POC Consult to Physical Therapy [CONS] Routine Comment: Evaluate, develop and implement POC Consult to Voice Intercept Technician [CONS] Routine Reason for SW Consult: discharge planning. Discharging clinician: Sunshine Gaytan Anticipated date of discharge: 09/05/16 - Patient Status Disposition: Transfer SNF Condition: Good Functional capacity at discharge: uses cane/walker Overall status at discharge: patient is progressing back to baseline - Discharge Instructions Follow Up With: Emmett Perez MD [Primary Care Provider] - - Diet and Activity Activity: as per physical therapy Diet: low fat, low cholesterol, low salt diet Hospital course: Ms. Loera is a 71 year old female with the above medical problems, who was admitted with generalized weakness after sustaining multiple falls at home. She was noted to complain of lower back pain and right wrist pain and x-ray of right wrist showed no acute fracture or trauma. Urine dipstick was positive for UTI and she was started on IV Rocephin and IV hydration. Urine culture finally grew pansensitive Escherichia coli and she is being discharged on oral third-generation cephalosporin. Patient remained hemodynamically stable while in the hospital with improving pain and urinary symptoms. Patient is apprehensive about being discharged home as she does not have 24- hour supervision as her daughter is employed, due to her recent recurrent falls. Physical therapy evaluation was done and recommended extended care facility placement. shared services representative was consulted and patient is medically stable for discharged to [facility]. - Time Spent with Patient Total time spent providing and/or coordinating discharge services: Greater than 30 minutes (50 min) - Constitutional Vitals: Temp Pulse Resp BP Pulse Ox 98.3 F 93 15 142/90 95 09/05/16 16:05 09/05/16 16:05 09/05/16 16:05 09/05/16 16:05 09/05/16 16:05 General appearance: Present: A&O X 3, answers questions appropriately
[2016-09-05] MEDS: traZODone 50 MG TABLET PO SCH (20:28)
[2016-09-05] MEDS: Nicotine 14 MG PATCH.TD24 TD SCH (20:29)
[2016-09-05] MEDS: clonazePAM 0.5 MG TABLET PO PRN (20:35)
[2016-09-06] MEDS: clonazePAM 0.5 MG TABLET PO PRN (04:20)
[2016-09-06] MEDS: *HR* HYDROcodone/Acet 5/325 mg TABLET PO PRN (04:21)
[2016-09-06] MEDS: 0.9 % Sodium Chloride 1,000 ML IVC SCH (06:06)
[2016-09-06] MEDS: Artificial Tears SOLN 15 ML BOTTLE OP SCH ×2 (06:07→08:25)
[2016-09-06] MEDS: *HR* Heparin 5,000 UNIT/ML VIAL SQ SCH (06:07)
[2016-09-06 07:54] VITALS: BP 111/79
[2016-09-06] MEDS: Ascorbic Acid 500 MG TABLET PO SCH (08:20)
[2016-09-06] MEDS: Cyanocobalamin (B-12) 1,000 MCG TABLET PO SCH (08:20)
[2016-09-06] MEDS: Aspirin Enteric Coated 81 MG Tablet PO SCH (08:21)
[2016-09-06] MEDS: Multivit/Ca/Min/Fe/FA 1 TAB TABLET PO SCH (08:21)
[2016-09-06] MEDS: Cholecalciferol (D-3) 1,000 UNIT TABLET PO SCH (08:21)
[2016-09-06] MEDS: PRESERVISION AREDS PO SCH (08:24)
== END 2016-09-06 13:40 ==
LOC: EMEROO 15:45 → 3BNU 15:45 → SUATTDRO 22:34
PROVIDERS: ADMIT Nurse Practitioner Family; ATTEND Internal Medicine

== ENCOUNTER 2016-10-10 13:56 | Observation (INO) ==
[2016-10-10] MEDS ORDERED: 0.9 % Sodium Chloride 500 ML IVC ONE (14:07)
--- NOTE | 2016-10-10 14:10 | Emergency Department Note ---
START Narrative - START START: I examined this patient and my medical decision-making was reviewed with the [employer] PROFESSOR/PA/Advanced Practice Nurse/Resident Physician. I agree with the documented findings, disposition and treatment plan as described except to the extent set forth below. ED attending note: Patient seen with emergency medicine resident Dr. Hawkins. Please see a copy of his note for details of the H&P, evaluation, management and disposition of this patient. We independently had [id number] contact with the patient Briefly: A 71-year-old female by EMS for low blood pressure and feeling lightheaded. Patient states that the blood pressure is normally low in the morning. EMS they said the patient's normal according was 60 systolic. She is awake and alert. No signs of trauma although she did fall yesterday. Patient did feel dizzy yesterday when she fell. She is on Plavix and will receive HEAD CT. EKG shows acute ischemic changes. She will get a workup here including troponin and labs chest x-ray and urinalysis. She had a liter of normal saline per EMS and her systolic is now 109. We have provided 40 minutes of care service this patient t. Disposition pending.
--- NOTE | 2016-10-10 14:31 | Emergency Department Note ---
Disposition Clinical Impression: Hypotension Qualifiers: Hypotension type: unspecified hypotension type Qualified Code(s): I95.9 - Hypotension, unspecified Fall Qualifiers: Encounter type: initial encounter Qualified Code(s): W19.XXXA - Unspecified fall, initial encounter Ribs, multiple fractures Qualifiers: Encounter type: initial encounter Fracture type: closed Laterality: right Qualified Code(s): S22.41XA - Multiple fractures of ribs, right side, initial encounter for closed fracture Disposition: Admitted As Inpatient Condition: Good Referrals: Emmett Perez MD [Primary Care Provider] - Forms: Work/School Release, ED Satisfaction Letter General Adult HPI - General Chief complaint: ED General Medical Stated complaint: Hypotension Time Seen by Provider: 10/10/16 14:06 Source: patient, EMS Limitations: no limitations - History of Present Illness HPI Narrative: 71-year-old female presents to the ER via EMS due to concern for low blood pressure. Patient states she woke up this morning and checked her blood pressure. She states that she was not having symptoms they just do it every morning. She reports that it was 60/50. That she is usually 60 systolic in the morning. However it started going to the 50s and that made him concerned. EMS was called and the patient was transported. EMS gave an 800 mL bolus in transit with improvement of her hypotension. Patient denies any complaints with the hypotension including headache, dizziness, chest pain, shortness of breath. She does report that she fell this morning going to the bathroom. She states that she still felt dizzy and then fell. She denies loss of consciousness or head injury. She is is on Plavix. She currently feels back to normal with the exception of right rib pain. No other complaints. Pt Subjective Complaint: Hypotension Onset (ago): hour(s) Location: chest (Right ribs) Radiation: non-radiation Pain Scale: 5 Quality: aching Consistency: other (With movement) Improves with: rest Worsens with: movement Associated symptoms: Denies: chest pain, cough, fever/chills, headaches, nausea/ vomiting Treatments Prior to Arrival: none - Related Data Home Medications Medication Instructions Recorded Confirmed Aspirin Enteric Coated [Aspirin EC] 81 mg PO DAILY 02/20/16 10/10/16 Clopidogrel [Plavix] 75 mg PO DAILY 02/20/16 09/02/16 Gabapentin [Neurontin] 600 mg PO QID PRN 02/20/16 10/10/16 Polyvinyl Alcohol/Povidone/Pf 1 drop OP BID 06/13/16 10/10/16 [Refresh Classic Eye Drops] Vit C/E/Zn/Coppr/Lutein/Zeaxan 1 cap PO BID 06/13/16 10/10/16 [Preservision Areds 2 Softgel] Cholecalciferol (Vitamin D3) 1,000 unit PO DAILY 07/02/16 10/10/16 [Vitamin D3] Cyanocobalamin (Vitamin B-12) 1,000 mcg PO DAILY 07/02/16 10/10/16 [Vitamin B12] Simvastatin [Zocor] 20 mg PO HS 07/02/16 10/10/16 Ascorbate Calcium [Vitamin C] 500 mg PO DAILY 10/10/16 10/10/16 Cyclobenzaprine HCl 2.5 mg PO TID 10/10/16 10/10/16 HYDROcodone/Acet 5/325 mg [[place] 1 tab PO BID PRN 10/10/16 10/10/16 5-325 mg] Mirtazapine [Remeron] 15 mg PO HS 10/10/16 10/10/16 Paroxetine HCl [Paxil] 20 mg PO DAILY 10/10/16 10/10/16 Potassium Chloride [K-Tab ER] 10 meq PO BID 10/10/16 10/10/16 TraZODone 50 - 100 mg PO HS 10/10/16 10/10/16 Previous Rx's Medication Instructions Recorded ClonazePAM [Klonopin] 0.5 mg PO BID PRN #15 tablet 07/16/16 Fludrocortisone Acetate [Florinef] 0.1 mg PO DAILY #30 tablet 07/16/16 Duloxetine [Cymbalta] 30 mg PO DAILY #20 09/05/16 Allergies Allergy/AdvReac Type Severity Reaction Status Date / Time Sulfa (Sulfonamide Allergy Rash Verified 06/13/16 06:51 Antibiotics) All systems ED: reviewed and negative except as stated. Constitutional: Denies: fever Cardiovascular: Reports: chest pain (Right-sided rib pain) Respiratory: Denies: cough, dyspnea, wheezes Gastrointestinal: Denies: abdominal pain, nausea, vomiting Musculoskeletal: Denies: neck pain Neurological: Denies: headache Past Medical History - Past Medical History Attestation: Yes The following information was validated with the patient. Source: patient Medical history: Reports: arthritis, coronary artery disease, CVA, hyperlipidemia, hypertension, migraine, peripheral artery disease Surgical history: Reports: carotid endarterectomy, cholecystectomy, other, vascular surgery Psychiatric history: Reports: anxiety, depression [place] history: Reports: no [place] history - Social History Smoking Status: Current every day smoker Smokeless Tobacco Status: No Alcohol use: Reports: none Drug use: Reports: none Physical Exam - General Limitations: no limitations General appearance: alert, in no apparent distress - Head Head exam: atraumatic, normocephalic, normal inspection - Eye Eye exam: Present: normal appearance, EOMI - ENT ENT exam: normal exam - Neck Neck exam: Present: normal inspection. Absent: tenderness - Chest Chest inspection: Present: normal inspection, tenderness (Tenderness to palpation along the anterior lateral aspects of the lower ribs on the right) - Respiratory Respiratory exam: Present: normal lung sounds bilaterally - Cardiovascular Cardiovascular exam: Present: regular rate, normal rhythm, normal heart sounds - Abdominal Exam Abdominal exam: Present: soft, Non-Tender. Absent: tenderness - Expanded Upper Extremity Exam Shoulder exam: Present: normal inspection, full ROM Arm exam: Present: normal inspection, full ROM Elbow exam: Present: normal inspection, full ROM Forearm/Wrist exam: Present: normal inspection, full ROM Hand exam: Present: normal inspection, full ROM - Expanded Lower Extremity Exam Hip/Pelvis exam: Present: normal inspection, full ROM Upper leg exam: Present: normal inspection, full ROM Knee exam: Present: normal inspection, full ROM Lower leg exam: Present: normal inspection, full ROM Ankle exam: Present: normal inspection, full ROM Foot/toe exam: Present: normal inspection, full ROM Neurovascular/Tendon exam: Absent: motor deficit, sensory deficit - Neurological Exam Neurological exam: Present: alert, oriented X3, CN II-XII intact. Absent: motor sensory deficit - Expanded Neurological Exam Patient oriented to: Present: person, place, time Speech: Present: fluid speech Cranial nerves: EOM function (II, III, IV, ): Normal, facial sensation (V): Normal, spinal accessory function (XI): Normal, tongue deviation (XII): Normal Motor strength - LUE: 4/5 Motor strength - RUE: 4/5 Motor strength - LLE: 4/5 Motor strength - RLE: 4/5 Sensory exam upper extremity: light touch: Normal Sensory exam lower extremity: light touch: Normal Coma Scale Eye Opening: Spontaneous Coma Scale Motor Response: Obeys Commands Coma Scale Verbal Response: Oriented Coma Scale Total: 15 - Psychiatric Psychiatric exam: Present: normal affect, normal mood - Skin Skin exam: Present: warm, dry, intact, normal color Course Course Narrative: Patient seen and examined. Vital signs reviewed. Her blood pressure has improved since her fluid bolus. We will give her an additional 500 mL bolus here. We will also check a CT scan of the head as the patient fell and is on Plavix. EKG and chest x-ray pending. We will also get basic labs including troponin. Disposition pending. - Reevaluation(s) Reevaluation #1: Discussed results of imaging and lab work with the patient. She is agreeable with staying in the hospital. Vital Signs Temperature 97.9 F 10/10/16 13:57 Pulse Rate 82 10/10/16 13:57 Respiratory Rate 16 10/10/16 13:57 Blood Pressure 109/75 10/10/16 13:57 O2 Sat by Pulse Oximetry 96 10/10/16 13:57 Temperature 97.9 F 10/10/16 13:57 Pulse Rate 79 10/10/16 16:05 Respiratory Rate 18 10/10/16 16:05 Blood Pressure 153/115 10/10/16 16:05 O2 Sat by Pulse Oximetry 96 10/10/16 16:05 Oxygen Delivery Oxygen Delivery Room Air Medical Decision Making - [facility] Narrative Medical decision making narrative: 71-year-old female presents to the ER due to hypotension at home as well as a fall. She was initially hypotensive with response to IV fluid boluses. She reports a fall after being dizzy at home. Her chest x-ray and right rib series here showed 2 rib fractures with displacement without hemo or pneumothorax. Labs show no acute abnormalities. Patient admitted to the hospitalist service for further management. - Lab Data Lab results reviewed: Yes I reviewed the patient's lab results. Result diagrams: 10/10/16 15:49 10/10/16 15:49 Lab Results 10/10/16 10/10/16 10/10/16 Range/Units 15:16 15:35 15:49 WBC 4.9 (4.3-11.1) K/mcL RBC 4.37 (3.82-4.97) M/mcL Hgb 13.1 (11.5-15.4) g/dL Hct 39.0 (35.3-44.9) % MCV 89.2 (83.0-100.0) fL MCH 30.0 (28.0-33.3) pg MCHC 33.6 (31.6-35.5) g/dL RDW 12.3 (11.5-14.5) % Plt Count 194 (140-400) K/mcL MPV 9.5 (9.4-12.4) fL Immature Gran % 0.2 (0-4) % Seg Neutrophils % 71.1 % Lymphocytes % 21.0 % Monocytes % 5.4 % Eosinophils % 2.1 % Basophils % 0.2 % Neutrophils # 3.5 (1.6-8.9) K/mcL Lymphocytes # 1.0 (0.6-4.6) K/mcL Monocytes # 0.3 (0.0-1.3) K/mcL Eosinophils # 0.1 (0.0-0.6) K/mcL Basophils # 0.0 (0.0-0.2) K/mcL Immature Plt Fraction 3.6 (1.1-6.1) % Sodium (136-145) mEq/L Potassium (3.5-4.5) mEq/L Chloride (98-109) mEq/L Carbon Dioxide (19-29) mEq/L BUN (7-20) mg/dL Creatinine (0.57-1.11) mg/dL Est GFR ( Amer) (> 60) Est GFR (Non-Af Amer) (> 60) BUN/Creatinine Ratio (6-26) Glucose (70-99) mg/dL Calculated Osmolality (280-300) Calcium (8.6-10.8) mg/dL Troponin I (0-0.03) ng/mL Urine Color Yellow (Yellow) Urine Clarity Clear (Clear) Urine pH 7.0 (5.0-8.0) pH Units Ur Specific Davis 1.006 L (1.010-1.025) Urine Protein Negative (Neg-Trace) mg/dL Urine Glucose (UA) Normal (Normal) mg/dL Urine Ketones Negative (Negative) mg/dL Urine Blood Trace H (Negative) Urine Nitrite Negative (Negative) Urine Bilirubin Negative (Negative) Urine Urobilinogen Normal (Normal) mg/dL Ur Leukocyte Esterase Small H (Negative) Urine Microscopic RBC 0-3 (0-3) per hpf Urine Microscopic WBC 5-15 H (0-3) per hpf Ur Squamous Epith Cells Many H (None-Few) per lpf Urine Bacteria None Seen (None-Few) per hpf Hyaline Casts None Seen (None-Few) per lpf Ur Culture Indicated? YES A (NO) Specimen Rejected Hemolyzed 10/10/16 10/10/16 Range/Units 15:49 15:49 WBC (4.3-11.1) K/mcL RBC (3.82-4.97) M/mcL Hgb (11.5-15.4) g/dL Hct (35.3-44.9) % MCV (83.0-100.0) fL MCH (28.0-33.3) pg MCHC (31.6-35.5) g/dL RDW (11.5-14.5) % Plt Count (140-400) K/mcL MPV (9.4-12.4) fL Immature Gran % (0-4) % Seg Neutrophils % % Lymphocytes % % Monocytes % % Eosinophils % % Basophils % % Neutrophils # (1.6-8.9) K/mcL Lymphocytes # (0.6-4.6) K/mcL Monocytes # (0.0-1.3) K/mcL Eosinophils # (0.0-0.6) K/mcL Basophils # (0.0-0.2) K/mcL Immature Plt Fraction (1.1-6.1) % Sodium 133 L (136-145) mEq/L Potassium 4.1 (3.5-4.5) mEq/L Chloride 95 L (98-109) mEq/L Carbon Dioxide 29 (19-29) mEq/L BUN 5 L (7-20) mg/dL Creatinine 0.83 (0.57-1.11) mg/dL Est GFR ( Amer) > 60 (> 60) Est GFR (Non-Af Amer) > 60 (> 60) BUN/Creatinine Ratio 6 (6-26) Glucose 93 (70-99) mg/dL Calculated Osmolality 273 L (280-300) Calcium 8.4 L (8.6-10.8) mg/dL Troponin I 0.01 (0-0.03) ng/mL Urine Color (Yellow) Urine Clarity (Clear) Urine pH (5.0-8.0) pH Units Ur Specific Davis (1.010-1.025) Urine Protein (Neg-Trace) mg/dL Urine Glucose (UA) (Normal) mg/dL Urine Ketones (Negative) mg/dL Urine Blood (Negative) Urine Nitrite (Negative) Urine Bilirubin (Negative) Urine Urobilinogen (Normal) mg/dL Ur Leukocyte Esterase (Negative) Urine Microscopic RBC (0-3) per hpf Urine Microscopic WBC (0-3) per hpf Ur Squamous Epith Cells (None-Few) per lpf Urine Bacteria (None-Few) per hpf Hyaline Casts (None-Few) per lpf Ur Culture Indicated? (NO) Specimen Rejected - Radiology Data Radiology results reviewed: Yes I reviewed the patient's radiology results. Head CT 10/10/16 14:10 IMPRESSION: No acute intracranial abnormality. Moderate chronic small vessel ischemic disease within the periventricular white matter. Mild right frontal lobe encephalomalacia not significantly changed. D/ / 10/10/2016 15:18:24 Alhaji Lopes MD / Courtney Brown Interpreting Provider: Alhaji Lopes MD Ribs w/Chest X-Ray 10/10/16 14:19 IMPRESSION: 1. Decreased bone mineral density. 2. Acute displaced right posterolateral 7th and 8 rib fractures. No pneumothorax or hemothorax. 3. Subtle irregularity along the T7 inferior endplate, a posttraumatic compression fracture cannot be excluded and if clinically indicated this could be further evaluated with MRI. 4. COPD with evidence of scarring. D/ / 10/10/2016 15:06:38 Gregg Andres MD / krystal Interpreting Provider: Gregg Andres MD - EKG Data EKG #1 EKG attestation: Yes I reviewed and interpreted this EKG. EKG results narrative: EKG demonstrates normal sinus rhythm with a rate of 81 bpm. Normal axis. [place] interval 153 QRS duration [address] elevations or depressions. No acute ischemic findings. No significant changes from previous EKG dated 09/02/16. Maribel. - Jaz Situation: Demographics, MOA Background: Presenting Complaint, Relevant PMH, Meds, & Allergies Assessment: Vital Signs, Course and respsone to treatment, Exam Concerns, Patient/Family Expectation, Pertinant Lab Results, Outstanding Labs Recommendation: Barrier(s) to disposition, Recommendation based on pending studies, treatments, or consults S.[email or web address] Report Given to: Dr. Scooter Sebastian Repor Time: 17:05
[2016-10-10 15:44] LABS: Bilirubin,Urine Negative (Negative); Blood,Urine Trace (Negative); Clarity,Urine Clear (Clear); Color,Urine Yellow (Yellow); Glucose,Urine (UA) Normal (Normal); Ketones,Urine Negative (Negative); Leukocyte Esterase,Urine Small (Negative); Nitrite,Urine Negative (Negative); Protein,Urine Negative (Neg-Trace); Specific Gravity,Urine 1.006 (1.010-1.025); Urobilinogen,Urine Normal (Normal)
[2016-10-10 15:46] LABS: Bacteria,Urine None Seen per hpf (None-Few); Hyaline Casts,Urine None Seen per lpf (None-Few); RBC,Urine 0-3 per hpf (0-3); Squamous Epithelial Cell,Urine Many per lpf (None-Few)
[2016-10-10 15:56] LABS: Basophils % 0.2 %; Eosinophils # 0.1 K/mcL (0.0-0.6); Eosinophils % 2.1 %; Hemoglobin 13.1 g/dL (11.5-15.4); Immature Granulocytes % 0.2 % (0-4); Immature Platelets 3.6 % (1.1-6.1); Mean Corpuscular HGB Conc 33.6 g/dL (31.6-35.5); Mean Corpuscular Volume 89.2 fL (83.0-100.0); Mean Platelet Volume 9.5 fL (9.4-12.4); Monocytes # 0.3 K/mcL (0.0-1.3); Monocytes % 5.4 %; Neutrophils # 3.5 K/mcL (1.6-8.9); Platelet Count 194 K/mcL (140-400); Red Blood Count 4.37 M/mcL (3.82-4.97); Red Cell Distribution Width 12.3 % (11.5-14.5); Segmented Neutrophils % 71.1 %
[2016-10-10 16:07] LABS: BUN/Creatinine Ratio 6 (6-26); Calcium 8.4 mg/dL (8.6-10.8); Carbon Dioxide 29 mEq/L (19-29); Chloride 95 mEq/L (98-109); Glucose 93 mg/dL (70-99); Osmolality,Calculated 273 (280-300); Potassium 4.1 mEq/L (3.5-4.5); Sodium 133 mEq/L (136-145); eGFR For African Americans > 60 (> 60); eGFR For Non-African Americans > 60 (> 60)
[2016-10-10 16:09] LABS: Blood Urea Nitrogen 5 mg/dL (7-20)
[2016-10-10] MEDS ORDERED: *HR* HYDROcodone/Acet 5/325 mg TABLET PO ONE ×2 (16:25→17:32)
[2016-10-10] MEDS ORDERED: Naloxone 0.4 MG/ML INJ IVP PRN (20:38)
[2016-10-10] MEDS ORDERED: Acetaminophen 325 MG TABLET PO PRN (20:40)
[2016-10-10] MEDS ORDERED: *HR* OxyCODONE Immed Rel 5 MG TABLET PO PRN (20:40)
[2016-10-10] MEDS: Mirtazapine 15 MG TABLET PO SCH (21:21)
[2016-10-10] MEDS: Nicotine 14 MG PATCH.TD24 TD SCH (21:21)
[2016-10-10] MEDS: traZODone 50 MG TABLET PO SCH (21:22)
[2016-10-10] MEDS: clonazePAM 0.5 MG TABLET PO PRN (21:22)
[2016-10-10] MEDS: Artificial Tears SOLN 15 ML BOTTLE OP SCH (21:24)
--- NOTE | 2016-10-10 22:19 | Internal Med History&Physical ---
Date of Encounter: 10/10/16 Time of Encounter: 22:12 Assessment and Plan (1) Fall Current visit: Yes Status: Acute Patient reportedly fell last night, getting up to the bathroom. She reports she got lightheaded and dizzy and fell over and hit her right side against her bathtub. She reports she has fallen 12 times since the beginning of the year due to lightheadedness. X-ray shows acute displaced posterior lateral 7 and [address] showed no acute intracranial abnormality. EKG showed sinus rhythm with no ischemic findings. Troponin was negative at 0.01. Patient reports her blood pressure runs low. Likely orthostatic hypotension causing her lightheadedness. Orthostatic vital signs. consider discontinuing her Plavix on discharge due to her frequent falls and risk of bleeding. Qualifiers: Encounter type: initial encounter Qualified Code(s): W19.XXXA - Unspecified fall, initial encounter (2) Hypotension Current visit: Yes Status: Acute Patient reports her blood pressure runs low. When she checked it this morning it was systolic in the 50s which brought her into the hospital today. She fell last night after getting dizzy and lightheaded. She is on Florinef for this hypotension. Blood pressures improved after IV hydration. Continue home dose of Florinef. Orthostatic vital signs Cortisol level with AM labs Consult cardiology for symptomatic hypotension. Qualifiers: Hypotension type: unspecified hypotension type Qualified Code(s): I95.9 - Hypotension, unspecified (3) Ribs, multiple fractures Current visit: Yes Status: Acute Patient fell last night against her bathtub and has right-sided pain. X-ray shows decreased bone mineral density, acute displaced posterior lateral 7 and 8 rib fractures, no pneumothorax or hemothorax. PRN [place] for pain. Narcan when necessary for respiratory depression incentive spirometry Qualifiers: Encounter type: initial encounter Fracture type: closed Laterality: right Qualified Code(s): S22.41XA - Multiple fractures of ribs, right side, initial encounter for closed fracture (4) Cigarette smoker Current visit: No Status: Chronic Discussed smoking cessation, patient not ready to quit. Nicotine patch ordered. (5) DVT prophylaxis Current visit: No Status: Acute Ambulate with assistance anti-embolic stockings Lovenox 40mg SQ daily Internal Medicine - H&P: HPI Chief complaint: low blood pressure Admitted From: Emergency Dept Plans for Post Hospital Care: Home History of present illness: Ms. Loera is a 71 year old female with hyperlipidemia, peripheral artery disease , CVA with left-sided weakness, presented to the emergency department today with complaints of low blood pressure. She reports she checks her blood pressure every day and it usually runs low but it was especially [place] morning. She also reports right-sided pain after she fell getting up to the bathroom in the middle of the night. She reports the fall was due to lightheadedness and dizziness. She reports she does not did not lose consciousness and did not hit her head. She reports this morning she was not feeling lightheaded or dizzy she just decided to come to the hospital because her blood pressure was reading low. She was given fluid boluses by the squad in the ED and her blood pressure normalized. Head CT showed no acute intracranial abnormality moderate chronic small vessel ischemic disease, mild right frontal lobe encephalomalacia which is unchanged from previous exam. EKG showed sinus rhythm with no ischemic findings. Troponin was negative at 0.01. X-ray of her right ribs and chest showed decreased bone mineral density, acute displaced posterior lateral 7 and 8 rib fractures, no pneumothorax or hemothorax , also shows COPD. On exam, patient is alert and oriented, in no acute distress. Lungs are clear bilaterally to auscultation, heart has regular rate and rhythm. Patient is tender to palpation in the right lateral chest and flank. Past Med Surg Social Fam HX - Past Medical History Medical history: arthritis, CVA, hyperlipidemia, hypertension, migraine, peripheral artery disease Psychiatric history: anxiety, depression - Past Surgical History Surgical History: carotid endarterectomy, cholecystectomy, other, vascular surgery, LE vascular intervention - Social History Smoking Status: Current every day smoker Packs per day: 1/3 Smokeless Tobacco Status: No Alcohol use: none Drug use: none - Family History Father Adopted: No Family Member Ethnicity: Non- Living Status: Hx Family Cardiac Disorders: Yes Mother Living Status: Hx Family Cardiac Disorders: Yes (heart strokes) Hx Family Cancer: Yes (colon cancer) Hx Family Endocrine Disorder: Yes Internal Medicine - H&P: Meds Aspirin Enteric Coated [Aspirin EC] 81 mg PO DAILY 02/20/16 [History] Clopidogrel [Plavix] 75 mg PO DAILY 02/20/16 [History] Gabapentin [Neurontin] 600 mg PO QID PRN 02/20/16 [History] Polyvinyl Alcohol/Povidone/Pf [Refresh Classic Eye Drops] 1 drop OP BID [History] Vit C/E/Zn/Coppr/Lutein/Zeaxan [Preservision Areds 2 Softgel] 1 cap PO BID 06/13 [History] Cholecalciferol (Vitamin D3) [Vitamin D3] 1,000 unit PO DAILY 07/02/16 [History] Cyanocobalamin (Vitamin B-12) [Vitamin B12] 1,000 mcg PO DAILY 07/02/16 [History ] Simvastatin [Zocor] 20 mg PO HS 07/02/16 [History] ClonazePAM [Klonopin] 0.5 mg PO BID PRN #15 tablet 07/16/16 [Rx] Fludrocortisone Acetate [Florinef] 0.1 mg PO DAILY #30 tablet 07/16/16 [Rx] Duloxetine [Cymbalta] 30 mg PO DAILY #20 09/05/16 [Rx] Ascorbate Calcium [Vitamin C] 500 mg PO DAILY 10/10/16 [History] Cyclobenzaprine HCl 2.5 mg PO TID 10/10/16 [History] HYDROcodone/Acet 5/325 mg [[place] 5-325 mg] 1 tab PO BID PRN 10/10/16 [History] Mirtazapine [Remeron] 15 mg PO HS 10/10/16 [History] Paroxetine HCl [Paxil] 20 mg PO DAILY 10/10/16 [History] Potassium Chloride [K-Tab ER] 10 meq PO BID 10/10/16 [History] TraZODone 50 - 100 mg PO HS 10/10/16 [History] Allergies Sulfa (Sulfonamide Antibiotics) Allergy (Verified 06/13/16 06:51) Rash All Systems PM: A 10-system review of systems was performed and is negative for pertinent findings except as documented above in the HPI. - Constitutional Constitutional: no chills, no fever(s), no night sweats - EENT Eyes: no change in vision, no discharge, no pain, no photophobia Ears: no ear discharge, no ear pain, no tinnitus Nose, mouth and throat: no dysphagia, no nasal discharge, no neck pain, no sore throat - Cardiovascular Cardiovascular ROS IM: chest pain (right lateral pain related to fall), lightheadedness, no diaphoresis, no dyspnea, no palpitations, no syncope - Respiratory Respiratory: no cough, no dyspnea, no wheezing, no excessive phlegm production - Gastrointestinal Gastrointestinal: no abdominal pain, no diarrhea, no hematemesis, no hematochezia, no melena, no nausea, no vomiting - Genitourinary Genitourinary: no change in urinary stream, no dysuria, no flank pain, no hematuria - Musculoskeletal Musculoskeletal ROS IM: no numbness, no tingling - Integumentary Integumentary IM: no rash, no unusual bruising - Neurological Neurological ROS: no confusion, no convulsions, no focal weakness, no numbness, no tingling, no tremor(s) - Hematologic/Lymphatic Hematologic/Lymphatic: no easy bruising - Constitutional Vitals: Temp Pulse Resp BP Pulse Ox 98.7 F 89 16 115/82 93 L 10/10/16 19:16 10/10/16 19:16 10/10/16 19:16 10/10/16 19:16 10/10/16 19:16 General appearance: Present: A&O X 3, no acute distress - Head Head exam: Present: atraumatic, normocephalic - Eye Eye exam: Present: PERRL, conjuntiva pink, sclera anicteric Pupils: Present: PERRL - Neck Neck exam general surgery: Present: supple, trachea midline. Absent: lymphadenopathy - Respiratory Respiratory exam: Present: CTAB. Absent: accessory muscle use, rales, rhonchi, wheezes - Cardiovascular Cardiovascular exam: Present: RRR, +S1, +S2. Absent: diastolic murmur, gallop, rubs, systolic murmur - GI/Abdominal GI/Abdominal exam: Present: normal bowel sounds, soft, no peritoneal signs. Absent: distended, tenderness Additional comments: tenderness to palpation over right lateral chest - Extremities Exam Extremities exam: Present: warm, radial pulses palpable and symetrical. Absent : calf tenderness, cyanotic, pedal edema - Neurological Exam Neurological exam: Present: CN II-XII intact, oriented X3, no focal deficits. Absent: facial droop, speech deficit - Skin Skin exam: Present: dry, intact Internal Med - H&P Results - Labs CBC & Chem 7: 10/10/16 15:49 10/10/16 15:49 Labs: All Lab Results (24 Hours) 10/10/16 10/10/16 10/10/16 Range/Units 15:16 15:35 15:49 WBC 4.9 (4.3-11.1) K/mcL RBC 4.37 (3.82-4.97) M/mcL Hgb 13.1 (11.5-15.4) g/dL Hct 39.0 (35.3-44.9) % MCV 89.2 (83.0-100.0) fL MCH 30.0 (28.0-33.3) pg MCHC 33.6 (31.6-35.5) g/dL RDW 12.3 (11.5-14.5) % Plt Count 194 (140-400) K/mcL MPV 9.5 (9.4-12.4) fL Immature Gran % 0.2 (0-4) % Seg Neutrophils % 71.1 % Lymphocytes % 21.0 % Monocytes % 5.4 % Eosinophils % 2.1 % Basophils % 0.2 % Neutrophils # 3.5 (1.6-8.9) K/mcL Lymphocytes # 1.0 (0.6-4.6) K/mcL Monocytes # 0.3 (0.0-1.3) K/mcL Eosinophils # 0.1 (0.0-0.6) K/mcL Basophils # 0.0 (0.0-0.2) K/mcL Immature Plt Fraction 3.6 (1.1-6.1) % Sodium (136-145) mEq/L Potassium (3.5-4.5) mEq/L Chloride (98-109) mEq/L Carbon Dioxide (19-29) mEq/L BUN (7-20) mg/dL Creatinine (0.57-1.11) mg/dL Est GFR ( Amer) (> 60) Est GFR (Non-Af Amer) (> 60) BUN/Creatinine Ratio (6-26) Glucose (70-99) mg/dL Calculated Osmolality (280-300) Calcium (8.6-10.8) mg/dL Troponin I (0-0.03) ng/mL Urine Color Yellow (Yellow) Urine Clarity Clear (Clear) Urine pH 7.0 (5.0-8.0) pH Units Ur Specific [place] 1.006 L (1.010-1.025) Urine Protein Negative (Neg-Trace) mg/dL Urine Glucose (UA) Normal (Normal) mg/dL Urine Ketones Negative (Negative) mg/dL Urine Blood Trace H (Negative) Urine Nitrite Negative (Negative) Urine Bilirubin Negative (Negative) Urine Urobilinogen Normal (Normal) mg/dL Ur Leukocyte Esterase Small H (Negative) Urine Microscopic RBC 0-3 (0-3) per hpf Urine Microscopic WBC 5-15 H (0-3) per hpf Ur Squamous Epith Cells Many H (None-Few) per lpf Urine Bacteria None Seen (None-Few) per hpf Hyaline Casts None Seen (None-Few) per lpf Ur Culture Indicated? YES A (NO) Specimen Rejected Hemolyzed 10/10/16 10/10/16 Range/Units 15:49 15:49 WBC (4.3-11.1) K/mcL RBC (3.82-4.97) M/mcL Hgb (11.5-15.4) g/dL Hct (35.3-44.9) % MCV (83.0-100.0) fL MCH (28.0-33.3) pg MCHC (31.6-35.5) g/dL RDW (11.5-14.5) % Plt Count (140-400) K/mcL MPV (9.4-12.4) fL Immature Gran % (0-4) % Seg Neutrophils % % Lymphocytes % % Monocytes % % Eosinophils % % Basophils % % Neutrophils # (1.6-8.9) K/mcL Lymphocytes # (0.6-4.6) K/mcL Monocytes # (0.0-1.3) K/mcL Eosinophils # (0.0-0.6) K/mcL Basophils # (0.0-0.2) K/mcL Immature Plt Fraction (1.1-6.1) % Sodium 133 L (136-145) mEq/L Potassium 4.1 (3.5-4.5) mEq/L Chloride 95 L (98-109) mEq/L Carbon Dioxide 29 (19-29) mEq/L BUN 5 L (7-20) mg/dL Creatinine 0.83 (0.57-1.11) mg/dL Est GFR ( Amer) > 60 (> 60) Est GFR (Non-Af Amer) > 60 (> 60) BUN/Creatinine Ratio 6 (6-26) Glucose 93 (70-99) mg/dL Calculated Osmolality 273 L (280-300) Calcium 8.4 L (8.6-10.8) mg/dL Troponin I 0.01 (0-0.03) ng/mL Urine Color (Yellow) Urine Clarity (Clear) Urine pH (5.0-8.0) pH Units Ur Specific [place] (1.010-1.025) Urine Protein (Neg-Trace) mg/dL Urine Glucose (UA) (Normal) mg/dL Urine Ketones (Negative) mg/dL Urine Blood (Negative) Urine Nitrite (Negative) Urine Bilirubin (Negative) Urine Urobilinogen (Normal) mg/dL Ur Leukocyte Esterase (Negative) Urine Microscopic RBC (0-3) per hpf Urine Microscopic WBC (0-3) per hpf Ur Squamous Epith Cells (None-Few) per lpf Urine Bacteria (None-Few) per hpf Hyaline Casts (None-Few) per lpf Ur Culture Indicated? (NO) Specimen Rejected
[2016-10-10] MEDS: Clotrimazole 1% CRM 15 GM TUBE TP SCH (22:30)
[2016-10-11] MEDS: *HR* HYDROcodone/Acet 5/325 mg TABLET PO PRN ×4 (00:39→21:07)
[2016-10-11] MEDS: 0.9 % Sodium Chloride 1,000 ML IVC SCH ×2 (00:39→16:00)
--- NOTE | 2016-10-11 04:02 | Event Note ---
Date of Encounter: 10/11/16 Time of Encounter: 03:54 Neelima garibay examined with nurse practitioner. Patient presented mainly because she was hypotensive on routine checking over blood pressure at home. Patient mentioned that she was hypotensive for many weeks now to the point where her PCP started toward on Florinef. Etiology of hypotension was not very clear. She had actually a fall yesterday causing rib fractures. She mentioned that she had 12 falls this year in 2017. Obviously these falls are related to ortho stasis. Patient lives at home by herself Ambulates with a walker. Will do work up to evaluate cause of hypotension. Will check Cortisol level in AM. My exam she has an aortic stenosis murmur which looks at least moderate. Echocardiogram will be checked to evaluate severity of aortic stenosis. The ship will be hydrated. Her urinalysis contains some white blood cells however there is also lots of squamous cells, and she has no complains. she is afebrile without leukocytosis so will hold off antibiotics and check urine Culture. I discussed with the patient about going to long-term care and I think this is the most reasonable option for her. I have also discussed with the patient regarding discontinuing Plavix therapy which she has been getting for prior stroke. dual antiplatelet therapy will put her at risk of intracranial bleed with repeated head traumas. Tilt table tests will be useful and so will consult cardiology.
[2016-10-11] MEDS: *HR* Heparin 5,000 UNIT/ML VIAL SQ SCH ×2 (05:30→17:19)
[2016-10-11] MEDS ORDERED: *HR* Enoxaparin 40 MG/0.4 ML SYRINGE SQ SCH (07:00)
[2016-10-11] MEDS: Clotrimazole 1% CRM 15 GM TUBE TP SCH ×2 (07:41→21:08)
[2016-10-11] MEDS: Cyanocobalamin (B-12) 1,000 MCG TABLET PO SCH (07:42)
[2016-10-11] MEDS: Artificial Tears SOLN 15 ML BOTTLE OP SCH ×2 (07:42→21:08)
[2016-10-11] MEDS: Aspirin Enteric Coated 81 MG Tablet PO SCH (07:42)
[2016-10-11] MEDS: Ascorbic Acid 500 MG TABLET PO SCH (07:42)
[2016-10-11] MEDS: Nicotine 14 MG PATCH.TD24 TD SCH (07:42)
[2016-10-11] MEDS: Cholecalciferol (D-3) 1,000 UNIT TABLET PO SCH (07:42)
--- NOTE | 2016-10-11 09:51 | Cardiology Consult Note ---
Date of Encounter: 10/11/16 Time of Encounter: 09:51 Assessment and Plan (1) Hypotension Current Visit: Yes Status: Acute Patient reports her blood pressure usually runs low in AM, but prior to admission was 50s/40s per pt. In setting of suspected UTI with urine culture pending. Troponin negative x 1. She fell after getting dizzy and lightheaded, denies syncope. Reports falling 5 times this year for same reason. She is on Florinef 0.1mg daily. Blood pressures improved after IV hydration and she is now hypertensive. Orthostatic vital signs positive--135/92 lying, 118/84 sitting, 100/70 standing. Cortisol level normal. Recommend increasing fluid and salt intake, change positions slowly. Recommend treating UTI. Recent echo 06/2016 EF preserved 60-65%, mild AR and TR. Not on telemetry. No hx of arrhythmias. I will discuss all the above with Dr. Marcus and make changes as necessary. Anticipate sign off once seen and evaluated by him. Tilt table test not warranted, given that orthostatic hypotension already confirmed on vitals. Qualifiers: Hypotension type: unspecified hypotension type Qualified Code(s): I95.9 - Hypotension, unspecified (2) Tobacco use disorder Current Visit: Yes Status: Chronic Smoking cessation counseling given. Discussion w patient/family: The assessment and plan as outlined above was discussed with the patient and/or family members who expressed understanding and agreement. All questions were answered. Thank you for involving us in the care of your patient. Please call with any questions. I will discuss all the above with Dr. Marcus and make changes as necessary. History of Present Illness Consult date: 10/11/16 Requesting physician: Sully Hebert Consult reason: hypotension Chief complaint: dizziness, lightheadedness History of present illness: Ms. Loera is a 71 year old female with PMH of hyperlipidemia, peripheral artery disease, CVA and TIAs with left-sided weakness, hx of carotid stenosis with remote hx of Right CEA, Left CEA 06/2016. She presented to the ED with complaints of low blood pressure. She reports she checks her blood pressure every day and it usually runs low in the AM, but it was 50s/40s yesterday. She fell getting up to the bathroom in the middle of the night. Reports the fall was due to lightheadedness and dizziness. She reports she does not did not lose consciousness or hit her head. She was given fluid boluses and her blood pressure normalized. Head CT showed no acute intracranial abnormality moderate chronic small vessel ischemic disease, mild right frontal lobe encephalomalacia which is unchanged from previous exam. EKG showed sinus rhythm with no ischemic findings. Troponin negative. X-ray of her right ribs and chest showed decreased bone mineral density, acute displaced posterior lateral 7 and 8 rib fractures, no pneumothorax or hemothorax, also shows COPD. Aside from right sided pain from rib fractures, she denies chest pain. Denies any worsening dyspnea. She reports staying hydrated at home. Orthostatic vitals positive. Echo 06/2016 EF 60-65%, mild AR and TR. Past Med Surg Social Fam HX - Past Medical History Medical history: arthritis, CVA, hyperlipidemia, hypertension, migraine, peripheral artery disease, TIA Psychiatric history: anxiety, depression - Past Surgical History Surgical History: carotid endarterectomy, cholecystectomy, other, vascular surgery, LE vascular intervention - Social History Smoking Status: Current every day smoker Packs per day: 1/3 Smokeless Tobacco Status: No Alcohol use: none Drug use: none - Family History Father Adopted: No Family Member Ethnicity: Non- Living Status: Hx Family Cardiac Disorders: Yes Mother Living Status: Hx Family Cardiac Disorders: Yes (heart strokes) Hx Family Cancer: Yes (colon cancer) Hx Family Endocrine Disorder: Yes Medications and Allergies Aspirin Enteric Coated [Aspirin EC] 81 mg PO DAILY 02/20/16 [History] Clopidogrel [Plavix] 75 mg PO DAILY 02/20/16 [History] Gabapentin [Neurontin] 600 mg PO QID PRN 02/20/16 [History] Polyvinyl Alcohol/Povidone/Pf [Refresh Classic Eye Drops] 1 drop OP BID [History] Vit C/E/Zn/Coppr/Lutein/Zeaxan [Preservision Areds 2 Softgel] 1 cap PO BID 06/13 [History] Cholecalciferol (Vitamin D3) [Vitamin D3] 1,000 unit PO DAILY 07/02/16 [History] Cyanocobalamin (Vitamin B-12) [Vitamin B12] 1,000 mcg PO DAILY 07/02/16 [History ] Simvastatin [Zocor] 20 mg PO HS 07/02/16 [History] ClonazePAM [Klonopin] 0.5 mg PO BID PRN #15 tablet 07/16/16 [Rx] Fludrocortisone Acetate [Florinef] 0.1 mg PO DAILY #30 tablet 07/16/16 [Rx] Duloxetine [Cymbalta] 30 mg PO DAILY #20 09/05/16 [Rx] Ascorbate Calcium [Vitamin C] 500 mg PO DAILY 10/10/16 [History] Cyclobenzaprine HCl 2.5 mg PO TID 10/10/16 [History] HYDROcodone/Acet 5/325 mg [[place] 5-325 mg] 1 tab PO BID PRN 10/10/16 [History] Mirtazapine [Remeron] 15 mg PO HS 10/10/16 [History] Paroxetine HCl [Paxil] 20 mg PO DAILY 10/10/16 [History] Potassium Chloride [K-Tab ER] 10 meq PO BID 10/10/16 [History] TraZODone 50 - 100 mg PO HS 10/10/16 [History] Allergies Sulfa (Sulfonamide Antibiotics) Allergy (Verified 06/13/16 06:51) Rash All Systems Review: A 10-system review of systems was performed and is negative for pertinent findings except as documented above in the HPI. - Constitutional Constitutional: frequent falls - Cardiovascular Cardiovascular: lightheadedness Physical Examination Vital Signs, Last 4 Hours Temp Pulse Resp BP Pulse Ox 10/11/16 08:34 99.0 F 97 12 150/100 93 L Vital Signs Temp Pulse Pulse Pulse Pulse Resp BP 10/11/16 08:34 99.0 F 97 12 150/100 10/11/16 03:56 97.5 F L 83 82 88 100 16 135/92 10/11/16 00:29 98.2 F 87 14 156/111 10/10/16 19:16 98.7 F 89 16 115/82 10/10/16 18:15 18 156/113 10/10/16 18:06 81 18 156/113 10/10/16 16:05 79 18 153/115 10/10/16 14:59 80 16 142/101 10/10/16 13:57 97.9 F 82 16 109/75 BP BP BP Pulse Ox 10/11/16 08:34 93 L 10/11/16 03:56 135/92 118/84 100/70 92 L 10/11/16 00:29 91 L 10/10/16 19:16 93 L 10/10/16 18:15 10/10/16 18:06 97 10/10/16 16:05 96 10/10/16 14:59 96 10/10/16 13:57 96 Intake and Output 10/10/16 10/11/16 10/11/16 23:59 07:59 15:59 Intake Total 500 / 500 Output Total 600 / 600 Balance 500 / 500 -600 / -600 Intake: IV Fluids 500 / 500 0.9 % Sodium Chloride 500 500 / 500 ML @ 1875 mls/hr IVC . Q16M ONE Rx#:[id number] Output: Urine 600 / 600 Other: Weight 49.578 kg 49.079 kg Patient Weight 10/11/16 23:59 Weight 49.079 kg General: Conversant, No Apparent Distress HEENT: Atraumatic, Normocephaly, Mucus Membranes Moist Neck: No JVD, Normal carotid pulses Cardiac: Reg Rate and Rhythm, Normal S1 and S2, No Murmur Lungs: Normal Breath Sounds, No Wheeze, Rales, Rhonchi Neuro: Alert and responsive, No focal deficits noted Abdomen: Soft, Non-Tender Skin: No rashes noted on visualized skin Musculoskeletal: No Chest Wall Tenderness Extremities: No Clubbing, No Cyanosis, No Edema, Normal Pulses Results 10/10/16 15:49 10/10/16 15:49 Short CBC 10/10/16 Range/Units 15:49 WBC 4.9 (4.3-11.1) K/mcL Hgb 13.1 (11.5-15.4) g/dL Hct 39.0 (35.3-44.9) % Plt Count 194 (140-400) K/mcL Neutrophils # 3.5 (1.6-8.9) K/mcL BMP 10/10/16 Range/Units 15:49 Sodium 133 L (136-145) mEq/L Potassium 4.1 (3.5-4.5) mEq/L Chloride 95 L (98-109) mEq/L Carbon Dioxide 29 (19-29) mEq/L BUN 5 L (7-20) mg/dL Creatinine 0.83 (0.57-1.11) mg/dL Glucose 93 (70-99) mg/dL Calcium 8.4 L (8.6-10.8) mg/dL Cardiac Enzymes 10/10/16 Range/Units 15:49 Troponin I 0.01 (0-0.03) ng/mL Urine 10/10/16 Range/Units 15:35 Urine Color Yellow (Yellow) Urine Clarity Clear (Clear) Urine pH 7.0 (5.0-8.0) pH Units Ur Specific [place] 1.006 L (1.010-1.025) Urine Protein Negative (Neg-Trace) mg/dL Urine Glucose (UA) Normal (Normal) mg/dL Impressions Head CT 10/10/16 14:10 IMPRESSION: No acute intracranial abnormality. Moderate chronic small vessel ischemic disease within the periventricular white matter. Mild right frontal lobe encephalomalacia not significantly changed. D/ / 10/10/2016 15:18:24 Alhaji Lopes MD / Courtney Brown Interpreting Provider: Alhaji Lopes MD Ribs w/Chest X-Ray 10/10/16 14:19 IMPRESSION: 1. Decreased bone mineral density. 2. Acute displaced right posterolateral 7th and 8 rib fractures. No pneumothorax or hemothorax. 3. Subtle irregularity along the T7 inferior endplate, a posttraumatic compression fracture cannot be excluded and if clinically indicated this could be further evaluated with MRI. 4. COPD with evidence of scarring. D/ / 10/10/2016 15:06:38 Gregg Andres MD / krystal Interpreting Provider: Gregg Andres MD Active Medications Acetaminophen/Hydrocodone Bitart ([place] 5-325 Mg) 1 tab PO Q6HR PRN PRN Reason: Moderate Pain Stop: 04/11/17 20:41 Last Admin: 10/11/16 07:42 Dose: 1 tab Artificial Tears ([place] Tears) 1 drop OP BID [facility]ARD Stop: 04/11/17 21:01 Last Admin: 10/11/16 07:42 Dose: 1 drop Ascorbic Acid (Vitamin C) 500 mg PO DAILY [facility]ARD Stop: 04/12/17 09:01 Last Admin: 10/11/16 07:42 Dose: 500 mg Aspirin (Aspirin Ec) 81 mg PO DAILY [facility] Stop: 04/12/17 09:01 Last Admin: 10/11/16 07:42 Dose: 81 mg Clonazepam (Klonopin) 0.5 mg PO BID PRN PRN Reason: Anxiety Stop: 04/11/17 20:43 Last Admin: 10/10/16 21:22 Dose: 0.5 mg Clotrimazole (Lotrimin 1%) 1 appl TP BID HOWARD PRN Reason: Protocol Stop: 04/11/17 22:16 Last Admin: 10/11/16 07:41 Dose: 1 appl Cyanocobalamin (Vitamin B12) 1,000 mcg PO DAILY [facility] Stop: 04/12/17 09:01 Last Admin: 10/11/16 07:42 Dose: 1,000 mcg Duloxetine HCl (Cymbalta) 30 mg PO DAILY [facility] Stop: 04/12/17 09:01 Last Admin: 10/11/16 07:42 Dose: 30 mg Fludrocortisone Acetate (Florinef) 0.1 mg PO DAILY [facility] Stop: 04/12/17 09:01 Last Admin: 10/11/16 07:42 Dose: 0.1 mg Gabapentin (Neurontin) 600 mg PO QID PRN PRN Reason: Neuropathic Pain Heparin Sodium (Porcine) (Heparin) 5,000 unit SQ Q12HCO [facility] Stop: 04/12/17 06:01 Last Admin: 10/11/16 05:30 Dose: Not Given Sodium Chloride (0.9 % Sodium Chloride) 1,000 mls @ 75 mls/hr IVC .[id number] [facility]ARD Stop: 04/11/17 23:01 Last Admin: 10/11/16 00:39 Dose: 75 mls/hr Mirtazapine (Remeron) 15 mg PO HS [facility] Stop: 04/11/17 21:01 Last Admin: 10/10/16 21:21 Dose: 15 mg Naloxone HCl (Narcan) 0.4 mg IVP Q2MIN PRN PRN Reason: Opioid Reversal Stop: 04/11/17 20:39 Nicotine (Nicoderm) 14 mg TD DAILY HOWARD PRN Reason: Protocol Stop: 04/11/17 20:46 Last Admin: 10/11/16 07:42 Dose: 14 mg Paroxetine HCl (Paxil) 20 mg PO DAILY [facility]ARD PRN Reason: Protocol Stop: 04/12/17 09:01 Last Admin: 10/11/16 07:42 Dose: 20 mg Simvastatin (Zocor) 20 mg PO HS [facility]ARD PRN Reason: Protocol Stop: 04/11/17 21:01 Last Admin: 10/10/16 21:21 Dose: 20 mg Trazodone HCl (Trazodone) 50 mg PO HS [facility] Stop: 04/11/17 21:01 Last Admin: 10/10/16 21:22 Dose: 50 mg Vitamin D (Vitamin D) 1,000 unit PO DAILY [facility] Stop: 04/12/17 09:01 Last Admin: 10/11/16 07:42 Dose: 1,000 unit - Imaging and Cardiology Chest Xray: report reviewed Echo: report reviewed (06/2016 EF 60-65%, mild AR and TR.) - EKG Interpretation EKG results cardiology: personally reviewed (SR) Consult Discharge Plan - Plan Referrals: Emmett Perez MD [Primary Care Provider] -
[2016-10-11] MEDS ORDERED: Cosyntropin 250 MCG/2 ML VIAL IVP ONE (12:17)
--- NOTE | 2016-10-11 15:08 | Internal Med Progress Note ---
Date of Encounter: 10/11/16 Time of Encounter: 12:00 - Assessment and plan (1) Orthostatic hypotension Current Visit: No Status: Acute Assessment and plan: Acute on chronic. Continue Florinef. Ruling out adrenal insufficiency with ACTH stim test scheduled for tomorrow morning. Blood pressure is currently stable and she currently denies lightheadedness or dizziness. Her main complaint at this point is severe rib pain. Cardiology on board who has since signed off. Continue IV fluids. (2) Falls Current Visit: No Status: Acute Qualifiers: Encounter type: subsequent encounter Qualified Code(s): W19.XXXD - Unspecified fall, subsequent encounter (3) Hypotension Current Visit: Yes Status: Resolved Qualifiers: Hypotension type: unspecified hypotension type Qualified Code(s): I95.9 - Hypotension, unspecified (4) Ribs, multiple fractures Current Visit: Yes Status: Acute Assessment and plan: Patient with acute rib fractures to right posterior lateral seventh and eighth ribs. Patient currently with severe pain, will increase her pain medication. She denies shortness of breath however she is noted to be taking shallow rapid breaths on examination, we will add incentive spirometry ITS Impressions Ribs w/Chest X-Ray 10/10/16 14:19 IMPRESSION: 1. Decreased bone mineral density. 2. Acute displaced right posterolateral 7th and 8 rib fractures. No pneumothorax or hemothorax. 3. Subtle irregularity along the T7 inferior endplate, a posttraumatic compression fracture cannot be excluded and if clinically indicated this could be further evaluated with MRI. 4. COPD with evidence of scarring. D/ / 10/10/2016 15:06:38 Gregg Andres MD / krystal Interpreting Provider: Gregg Andres MD Qualifiers: Encounter type: initial encounter Fracture type: closed Laterality: right Qualified Code(s): S22.41XA - Multiple fractures of ribs, right side, initial encounter for closed fracture (5) Tobacco use disorder Current Visit: Yes Status: Chronic Assessment and plan: Declines counseling at this time, nicotine patch (6) DVT prophylaxis Current Visit: No Status: Acute Assessment and plan: subcutaneous Heparin (7) Weakness Current Visit: No Status: Acute Assessment and plan: Acute on chronic, physical therapy on board. (8) Coronary artery disease Current Visit: No Status: Chronic Assessment and plan: patient denies chest pain (9) Depression Current Visit: No Status: Chronic Assessment and plan: She denies suicidal ideation at this time Qualifiers: Depression Type: unspecified Qualified Code(s): F32.9 - Major depressive disorder, single episode, unspecified (10) HTN (hypertension) Current Visit: No Status: Chronic Assessment and plan: Patient has been mostly hypertensive since admission, will allow for mild permissive hypertension given her history of orthostatic hypotension and recurrent falls. ACTH stem test scheduled for tomorrow morning as her random cortisol levels were low to rule out adrenal insufficiency. Qualifiers: Hypertension type: essential hypertension Qualified Code(s): I10 - Essential (primary) hypertension (11) Hyponatremia Current Visit: No Status: Chronic Assessment and plan: Acute on chronic, mild, associated with hypo-osmolality, patient currently endorsing a regular diet since this admission. (12) Abnormal urinalysis Current Visit: No Status: Ruled-out Assessment and plan: Urine culture negative - Subjective Interval history: Patient seen and examined. On examination, patient attempting to sit upright in bed and attempting to her lunch. Patient still endorsing severe pain to her right-sided rib cage. She states she is unable to sit upright in bed. She denies shortness of breath. - Constitutional Vitals: Temp Pulse Resp BP Pulse Ox 98.1 F 109 13 110/80 93 L 10/11/16 12:19 10/11/16 12:19 10/11/16 12:19 10/11/16 12:19 10/11/16 12:19 General appearance: Present: mild distress (2/2pain), A&O X 3, pleasant, answers questions appropriately - Head Head exam: Present: atraumatic, normocephalic - Eye Eye exam: Present: PERRL, conjuntiva pink, sclera anicteric Pupils: Present: PERRL - Neck Neck exam general surgery: Present: supple, trachea midline. Absent: lymphadenopathy - Respiratory Respiratory exam: Present: chest wall tenderness, decreased breath sounds ( Shallow breaths secondary to pain). Absent: accessory muscle use, rales, respiratory distress, rhonchi, wheezes - Cardiovascular Cardiovascular exam: Present: RRR, +S1, +S2. Absent: diastolic murmur, gallop, rubs, systolic murmur - GI/Abdominal GI/Abdominal exam: Present: normal bowel sounds, soft, no peritoneal signs. Absent: distended, tenderness - Extremities Exam Extremities exam: Present: warm, radial pulses palpable and symetrical. Absent : calf tenderness, cyanotic, pedal edema - Neurological Exam Neurological exam: Present: alert, CN II-XII intact, oriented X3, no focal deficits, strengths equal and symetr throughout. Absent: pronater drift, facial droop, speech deficit - Skin Skin exam: Present: dry, intact, pallor, warm Internal Medicine: Result - Labs CBC & Chem 7: 10/10/16 15:49 10/10/16 15:49 - VTE Documentation of Mechanical Device: Graduated compression elastic hosiery Consult Discharge Plan - Plan Referrals: Emmett Perez MD [Primary Care Provider] -
[2016-10-11] MEDS ORDERED: *HR* Metoprolol 5 MG/5 ML VIAL IVP PRN ×2 (15:39→15:40)
--- NOTE | 2016-10-11 17:51 | Electrocardiograph Report ---
[address] [address] Test Date: 2016-10-10 Pat Name: Marva Loera Department: 103 Room: [facility] Gender: F [employer] Ship: : [id number] Requested By: August Hawkins Order Number: [id number] Reading MD: Zeinab White Measurements Intervals [place] Rate: 81 P: 52 AK: 153 QRS: 12 QRSD: 78 T: 75 QT: 400 QTc: 437 Interpretive Statements SINUS RHYTHM NONSPECIFIC T-WAVE ABNORMALITY Electronically Signed On 10-11-2016 17:49:36 EST by Zeinab White
[2016-10-11] MEDS: clonazePAM 0.5 MG TABLET PO PRN ×2 (18:40→21:07)
[2016-10-11] MEDS: Gabapentin 300 MG CAPSULE PO PRN (21:07)
[2016-10-11] MEDS: Mirtazapine 15 MG TABLET PO SCH (21:07)
[2016-10-11] MEDS: traZODone 50 MG TABLET PO SCH (21:07)
[2016-10-12] MEDS: 0.9 % Sodium Chloride 1,000 ML IVC SCH (04:12)
[2016-10-12] MEDS: *HR* Heparin 5,000 UNIT/ML VIAL SQ SCH (05:37)
[2016-10-12] MEDS ORDERED: Cosyntropin 250 MCG/2 ML VIAL IVP ONE (06:00)
[2016-10-12 07:26] VITALS: BP 120/82
[2016-10-12] MEDS: clonazePAM 0.5 MG TABLET PO PRN (07:33)
[2016-10-12] MEDS: Ascorbic Acid 500 MG TABLET PO SCH (07:33)
[2016-10-12] MEDS: Gabapentin 300 MG CAPSULE PO PRN (07:33)
[2016-10-12] MEDS: Aspirin Enteric Coated 81 MG Tablet PO SCH (07:33)
[2016-10-12] MEDS: Cholecalciferol (D-3) 1,000 UNIT TABLET PO SCH (07:33)
[2016-10-12] MEDS: Cyanocobalamin (B-12) 1,000 MCG TABLET PO SCH (07:33)
[2016-10-12] MEDS: *HR* OxyCODONE Immed Rel 5 MG TABLET PO PRN ×2 (07:34→11:17)
[2016-10-12] MEDS: Nicotine 14 MG PATCH.TD24 TD SCH (07:37)
[2016-10-12 08:13] LABS: BUN/Creatinine Ratio 12 (6-26); Blood Urea Nitrogen 10 mg/dL (7-20); Calcium 8.5 mg/dL (8.6-10.8); Carbon Dioxide 30 mEq/L (19-29); Chloride 95 mEq/L (98-109); Glucose 109 mg/dL (70-99); Osmolality,Calculated 280 (280-300); Potassium 3.9 mEq/L (3.5-4.5); Sodium 135 mEq/L (136-145); eGFR For African Americans > 60 (> 60); eGFR For Non-African Americans > 60 (> 60)
[2016-10-12] MEDS: Clotrimazole 1% CRM 15 GM TUBE TP SCH (08:58)
[2016-10-12] MEDS: *HR* HYDROcodone/Acet 5/325 mg TABLET PO PRN ×2 (08:59→11:55)
[2016-10-12] MEDS: Artificial Tears SOLN 15 ML BOTTLE OP SCH (08:59)
--- NOTE | 2016-10-12 10:59 | Discharge Summary ---
Date of Encounter: 10/12/16 Time of Encounter: 09:30 - Discharge Diagnosis (1) Hypotension Priority: Primary Status: Acute Comments: Likely related to adrenal insufficiency Basal cortisol low, cosyntropin stimulation response was sub-optimal. Cortisone 20mg/10mg AM/PM Continue Florinef Start Midodrine 5mg po TID. Qualifiers: Hypotension type: orthostatic hypotension Qualified Code(s): I95.1 - Orthostatic hypotension (2) Falls Priority: Primary Status: Acute Comments: rELATED TO HYPOTENSION. Qualifiers: Encounter type: subsequent encounter Qualified Code(s): W19.XXXD - Unspecified fall, subsequent encounter (3) Orthostatic hypotension Priority: Primary Status: Acute Comments: sEE ABOVE UNDER HYPOTENSION (4) Ribs, multiple fractures Priority: Primary Status: Acute Comments: Related to fall. Fracture 7th and 8ty (r), posterolateral segment. Qualifiers: Encounter type: initial encounter Fracture type: closed Laterality: right Qualified Code(s): S22.41XA - Multiple fractures of ribs, right side, initial encounter for closed fracture - Discharge Medications Prescriptions: Clotrimazole 1% CRM [Lotrimin 1%] 1 appl TP BID 21 Days Cortisone Acetate [Cortone] 20 mg PO DAILY 30 Days Cortisone Acetate [Cortone] 10 mg PO QPM 30 Days Midodrine [ProAmatine] 5 mg PO 0800,1200,1700 30 Days Home Medications: Aspirin Enteric Coated [Aspirin EC] 81 mg PO DAILY 02/20/16 [History] Clopidogrel [Plavix] 75 mg PO DAILY 02/20/16 [History] Gabapentin [Neurontin] 600 mg PO QID PRN 02/20/16 [History] Polyvinyl Alcohol/Povidone/Pf [Refresh Classic Eye Drops] 1 drop OP BID [History] Vit C/E/Zn/Coppr/Lutein/Zeaxan [Preservision Areds 2 Softgel] 1 cap PO BID 06/13 [History] Cholecalciferol (Vitamin D3) [Vitamin D3] 1,000 unit PO DAILY 07/02/16 [History] Cyanocobalamin (Vitamin B-12) [Vitamin B12] 1,000 mcg PO DAILY 07/02/16 [History ] Simvastatin [Zocor] 20 mg PO HS 07/02/16 [History] ClonazePAM [Klonopin] 0.5 mg PO BID PRN #15 tablet 07/16/16 [Rx] Fludrocortisone Acetate [Florinef] 0.1 mg PO DAILY #30 tablet 07/16/16 [Rx] Duloxetine [Cymbalta] 30 mg PO DAILY #20 09/05/16 [Rx] Ascorbate Calcium [Vitamin C] 500 mg PO DAILY 10/10/16 [History] Cyclobenzaprine HCl 2.5 mg PO TID 10/10/16 [History] HYDROcodone/Acet 5/325 mg [[place] 5-325 mg] 1 tab PO BID PRN 10/10/16 [History] Mirtazapine [Remeron] 15 mg PO HS 10/10/16 [History] Paroxetine HCl [Paxil] 20 mg PO DAILY 10/10/16 [History] Potassium Chloride [K-Tab ER] 10 meq PO BID 10/10/16 [History] TraZODone 50 - 100 mg PO HS 10/10/16 [History] Clotrimazole 1% CRM [Lotrimin 1%] 1 appl TP BID 21 Days 10/12/16 [Rx] Cortisone Acetate [Cortone] 10 mg PO QPM 30 Days 10/12/16 [Rx] Cortisone Acetate [Cortone] 20 mg PO DAILY 30 Days 10/12/16 [Rx] Midodrine [ProAmatine] 5 mg PO 0800,1200,1700 30 Days 10/12/16 [Rx] Allergies/Adverse Reactions: Allergies Sulfa (Sulfonamide Antibiotics) Allergy (Verified 06/13/16 06:51) Rash Date of admission: 10/10/16 17:38 Primary care physician: Emmett Perez MD Consults: 10/10/16 20:40 Consult to Physical Therapy [CONS] Routine Comment: Evaluate, develop and implement POC 10/10/16 22:52 Consult to Cardiology [CONS] Routine Comment: Consulting Provider: Cardiology Ira Reason for Consult: symptomatic hypotension Call Completed: No Discharging clinician: Saud Dodson Anticipated date of discharge: 10/12/16 - Patient Status Disposition: Home, Self-Care Condition: Good Overall status at discharge: patient is progressing back to baseline - Discharge Instructions Follow Up With: Emmett Perez MD [Primary Care Provider] - Additional Instructions: Conservative care for rib frcature, prn analgesia Cortisone 20mg AM, 10 MG PM Midodrine 5 mg po TID. Continue home dose of Florinef Wear compression stocking in the day time, may take off at night. [place] salt in take. Interval History: Feels better. Hospital course: Ms. Loera is a 71 year old female with PMH of hyperlipidemia, peripheral artery disease, CVA and TIAs with left-sided weakness, hx of carotid stenosis with remote hx of Right CEA, Left CEA 06/2016. She presented with a fall was due to lightheadedness and dizziness. She reports she checks her blood pressure every day and it usually runs low in the AM, but it was 50s/40s. She fell getting up to the bathroom in the middle of the night. She reports she does not did not lose consciousness or hit her head. She was given fluid boluses and her blood pressure normalized. Head CT showed no acute intracranial abnormality moderate chronic small vessel ischemic disease, mild right frontal lobe encephalomalacia which is unchanged from previous exam. EKG showed sinus rhythm with no ischemic findings. Troponin negative. X-ray of her right ribs and chest showed decreased bone mineral density, acute displaced posterior lateral 7 and 8 rib fractures, no pneumothorax or hemothorax, also shows COPD. Aside from right sided pain from rib fractures, she continued to deny chest pain or worsening dyspnea. She reports staying hydrated at home. Orthostatic vitals positive. Echo 06/2016 EF 60-65%, mild AR and TR. Basal cortisol was low (0.7). response to cosynthropin stimulation test was sub-optimal, < x2. PLAN Conservative care for rib frcature, prn analgesia Cortisone 20mg AM, 10 MG PM Midodrine 5 mg po TID. Continue home dose of Florinef Wear compression stocking in the day time, may take off at night. [place] salt in take. - Time Spent with Patient Total time spent providing and/or coordinating discharge services: Greater than 30 minutes Specific discharge activities: As tolerated. - Constitutional Vitals: Temp Pulse Resp BP Pulse Ox 98.2 F 88 16 120/82 92 L 10/12/16 07:22 10/12/16 07:22 10/12/16 07:22 10/12/16 07:22 10/12/16 07:40 General appearance: Present: mild distress (2/2pain), A&O X 3, pleasant, answers questions appropriately Exam: Not in distress, mild lethargy Mild palor. anicteric, afebrile, acyanotic. Chest is clinically clear, tender on the raight latera and posterior sides over 7th and 8th ribs. Some bruside. Abdomen: soft, non-tender, no masses. DIRECTOR OF SOFTWARE DEVELOPMENT: AAO X 3, no gross focal neurological deficits Extremities: No pedal edema. Skin no active skin lesion - VTE Documentation of Mechanical Device: Graduated compression elastic hosiery
== END 2016-10-12 12:15 | disposition home or self-care (01) ==
LOC: EMEROO 13:56 → 3ANU 13:56 → 3BNU 18:04
PROVIDERS: ADMIT Nurse Practitioner Family; ATTEND Family Medicine

== ENCOUNTER 2016-10-15 09:36 | Inpatient (IN) ==
[2016-10-15] MEDS ORDERED: 0.9 % Sodium Chloride 500 ML IVC ONE (10:13)
--- NOTE | 2016-10-15 10:38 | Emergency Department Note ---
Disposition Clinical Impression: RLL pneumonia, Multiple contusions, Generalized weakness Fall Qualifiers: Encounter type: initial encounter Qualified Code(s): W19.XXXA - Unspecified fall, initial encounter Disposition: Admitted As Inpatient Fall HPI - General Chief Complaint: ED Fall Stated Complaint: fall Time Seen by Provider: 10/15/16 09:45 Source: patient, family (daughter at bedside), EMS Mode of arrival: EMS Limitations: no limitations Nursing Notes Reviewed: Yes Vital Signs Reviewed: Yes - History of Present Illness HPI Narrative: Patient is a 71-year-old white female is brought to us by EMS this morning following a mechanical fall. Patient arrives awake and alert with a GCS of 15 on arrival in no acute distress. Patient reports that she got up approximately 2:30 in the morning to go to the bathroom and did not use her walker which she typically uses for assisted ambulation. Patient reports it was not in a convenient location for her to use this morning. Patient states she lost her footing due to just generalized weakness and fell onto her left side. Patient denies any syncopal episode or loss of consciousness associated with the fall. Patient struck her left head and face left shoulder and left upper extremity on the ground in the fall. Patient has obvious bruising and abrasions to these areas. Patient currently on aspirin and Plavix at home. Apparently patient had sustained a mechanical fall and was admitted to the hospital for right lower rib fractures on October 20 as well as hypotension which responded to fluids. Patient was discharged home and she states since that time has been feeling gradually worsening generalized weakness, gradually worsening cough that is nonproductive. Patient denies any fevers or chills. Patient denies any dizziness or vertigo. Patient denies any headache or visual changes. Patient states that she attempted to crawl into her living room but was unable to get up independently at home following the fall secondary to generalized weakness. Patient's daughter came over to check on her this morning about 7 AM and found her laying on the floor. Patient denies any preceding symptoms prior to the fall, she denies any headaches, no chest pain or palpitations, no lightheadedness or dizziness, no abdominal pain or back pain. Patient here is complaining of some mild left-sided facial tenderness and left parietal head pain. Patient denies any neck or back pain. Patient's also having some pain to her left wrist and elbow. Patient with full range of motion in bilateral upper extremities with minimal pain to the left distal ulna without deformity. Patient with ecchymosis and abrasions noted to the left dorsal lateral wrist, left volar forearm, left elbow, left anterior shoulder. Patient with superficial abrasion noted to the right elbow. Patient also with mild soft tissue swelling and ecchymosis noted to bilateral knees. Patient denies any hip pain or pelvic pain. No pain to the remainder of the lower extremities. Patient is still having some right posterior lateral rib tenderness to palpation from prior rib injuries. No shortness of breath or respiratory distress here. 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 Pt Subjective Complaint: fall - Related Data Home Medications Medication Instructions Recorded Confirmed Aspirin Enteric Coated [Aspirin EC] 81 mg PO DAILY 02/20/16 10/15/16 Clopidogrel [Plavix] 75 mg PO DAILY 02/20/16 10/15/16 Gabapentin [Neurontin] 600 mg PO QID PRN 02/20/16 10/15/16 Vit C/E/Zn/Coppr/Lutein/Zeaxan 1 cap PO BID 06/13/16 10/15/16 [Preservision Areds 2 Softgel] Cholecalciferol (Vitamin D3) 1,000 unit PO DAILY 07/02/16 10/15/16 [Vitamin D3] Cyanocobalamin (Vitamin B-12) 1,000 mcg PO DAILY 07/02/16 10/15/16 [Vitamin B12] Simvastatin [Zocor] 20 mg PO HS 07/02/16 10/15/16 Ascorbate Calcium [Vitamin C] 500 mg PO DAILY 10/10/16 10/15/16 Cyclobenzaprine HCl 2.5 mg PO TID 10/10/16 10/15/16 HYDROcodone/Acet 5/325 mg [Felicity 1 tab PO BID PRN 10/10/16 10/15/16 5-325 mg] Mirtazapine [Remeron] 15 mg PO HS 10/10/16 10/15/16 Potassium Chloride [K-Tab ER] 10 meq PO BID 10/10/16 10/15/16 TraZODone 50 - 100 mg PO HS 10/10/16 10/15/16 Previous Rx's Medication Instructions Recorded ClonazePAM [Klonopin] 0.5 mg PO BID PRN #15 tablet 07/16/16 Fludrocortisone Acetate [Florinef] 0.1 mg PO DAILY #30 tablet 07/16/16 Duloxetine [Cymbalta] 30 mg PO DAILY #20 09/05/16 Midodrine [ProAmatine] 5 mg PO 0800,1200,1700 30 Days 10/12/16 Allergies Allergy/AdvReac Type Severity Reaction Status Date / Time Sulfa (Sulfonamide Allergy Rash Verified 10/15/16 11:36 Antibiotics) All systems ED: reviewed and negative except as stated. Constitutional: Reports: as per HPI, weakness. Denies: fever, chills Eyes: Denies: eye pain, vision change ENT ED: Denies: ear pain, throat pain, congestion, dysphagia Cardiovascular: Reports: other (R posterolateral rib pain secondary to old rib fxs). Denies: chest pain, palpitations, dyspnea on exertion Respiratory: Reports: cough. Denies: dyspnea, wheezes, hemoptysis, sputum production Gastrointestinal: Denies: abdominal pain, nausea, vomiting, diarrhea Genitourinary: Denies: urgency, dysuria, frequency Musculoskeletal: Reports: as per HPI. Denies: back pain, neck pain Integumentary: Reports: as per HPI, abrasion Neurological: Reports: as per HPI, other (L parietal scalp TTP, no hematoma/ contusion). Denies: headache Hematological/Lymphatic: Denies: easy bleeding, easy bruising Fall PMH - Past Medical History Medical history: Reports: arthritis, CVA, hyperlipidemia, hypertension, migraine , peripheral artery disease, TIA Surgical history: Reports: carotid endarterectomy, cholecystectomy, other, vascular surgery, LE vascular intervention Psychiatric history: Reports: anxiety, depression TYPER history: Reports: no TYPER history - Social History Smoking Status: Current every day smoker Alcohol use: Reports: none Drug use: Reports: none Physical Exam - General Limitations: no limitations General appearance: alert, in no apparent distress - Head Head exam: normocephalic, other (No hematomas or contusions noted to scalp although scalp tenderness to palpation along the left parietal area) - Eye Eye exam: Present: normal appearance, PERRL, EOMI, other (No periorbital edema or ecchymosis noted) - ENT ENT exam: normal exam, normal oropharynx, mucous membranes dry, TM's normal bilaterally, other (Areas of ecchymosis and overlying abrasions noted to left forehead and left maxillary area without bony tenderness, naris patent without epistaxis, no TMJ tenderness no malocclusion) - Neck Neck exam: Present: normal inspection, full ROM, other (No midline tenderness to palpation). Absent: tenderness - Chest Chest inspection: Present: symmetric chest wall rise, other (Tenderness to the right posterolateral rib cage, remainder of chest wall nontender, no ecchymosis or subcutaneous air appreciated) - Cardiovascular Cardiovascular exam: Present: regular rate, normal rhythm - Abdominal Exam Abdominal exam: Present: soft, Non-Tender, normal bowel sounds. Absent: distention - Rectal Exam Rectal exam: Present: deferred - Expanded Lower Extremity Exam Hip/Pelvis exam: Present: normal inspection, full ROM. Absent: tenderness Upper leg exam: Present: normal inspection, full ROM. Absent: tenderness Knee exam: Present: full ROM, tenderness, swelling, ecchymosis, other ( Bilateral knees with appreciable soft tissue swelling, and ecchymosis. Full range of motion despite pain). Absent: deformity, dislocation Lower leg exam: Present: normal inspection, full ROM. Absent: tenderness Ankle exam: Present: normal inspection, full ROM. Absent: tenderness Foot/toe exam: Present: normal inspection, full ROM. Absent: tenderness - Back Exam Back exam: Present: normal inspection, full ROM, other (No ecchymosis noted). Absent: tenderness, CVA tenderness (R), CVA tenderness (L), paraspinal tenderness, vertebral tenderness, rashes - Neurological Exam Neurological exam: Present: alert, oriented X3, CN II-XII intact, reflexes normal. Absent: motor sensory deficit - Skin Skin exam: Present: warm, dry, other (Contusions noted to left wrist, left forearm, left elbow, left head and face. Abrasion noted to right elbow). Absent: rash Course Course Narrative: Laboratory Results WBC 10.5 K/mcL (4.3-11.1) D 10/15/16 10:55 RBC 4.41 M/mcL (3.82-4.97) 10/15/16 10:55 Hgb 13.3 g/dL (11.5-15.4) 10/15/16 10:55 Hct 39.3 % (35.3-44.9) 10/15/16 10:55 MCV 89.1 fL (83.0-100.0) 10/15/16 10:55 MCH 30.2 pg (28.0-33.3) 10/15/16 10:55 MCHC 33.8 g/dL (31.6-35.5) 10/15/16 10:55 RDW 12.4 % (11.5-14.5) 10/15/16 10:55 Plt Count 215 K/mcL (140-400) 10/15/16 10:55 MPV 9.6 fL (9.4-12.4) 10/15/16 10:55 Immature Gran % 0.4 % (0-4) 10/15/16 10:55 Seg Neutrophils % 86.9 % 10/15/16 10:55 Lymphocytes % 7.9 % 10/15/16 10:55 Monocytes % 4.7 % 10/15/16 10:55 Eosinophils % 0.0 % 10/15/16 10:55 Basophils % 0.1 % 10/15/16 10:55 Neutrophils # 9.1 K/mcL (1.6-8.9) H 10/15/16 10:55 Lymphocytes # 0.8 K/mcL (0.6-4.6) 10/15/16 10:55 Monocytes # 0.5 K/mcL (0.0-1.3) 10/15/16 10:55 Eosinophils # 0.0 K/mcL (0.0-0.6) 10/15/16 10:55 Basophils # 0.0 K/mcL (0.0-0.2) 10/15/16 10:55 PT 14.5 Seconds (9.4-12.1) H 10/15/16 10:55 INR 1.3 10/15/16 10:55 APTT 29.6 Seconds (26.0-36.0) 10/15/16 10:55 Sodium 133 mEq/L (136-145) L 10/15/16 10:55 Potassium 3.5 mEq/L (3.5-4.5) 10/15/16 10:55 Chloride 91 mEq/L (98-109) L 10/15/16 10:55 Carbon Dioxide 31 mEq/L (19-29) H 10/15/16 10:55 BUN 15 mg/dL (7-20) 10/15/16 10:55 Creatinine 0.85 mg/dL (0.57-1.11) 10/15/16 10:55 Est GFR ( Amer) > 60 (> 60) 10/15/16 10:55 Est GFR (Non-Af Amer) > 60 (> 60) 10/15/16 10:55 BUN/Creatinine Ratio 18 (6-26) 10/15/16 10:55 Glucose 129 mg/dL (70-99) H 10/15/16 10:55 Calculated Osmolality 279 (280-300) L 10/15/16 10:55 Lactic Acid 2.2 mmol/L (0.5-2.2) 10/15/16 11:22 Calcium 8.8 mg/dL (8.6-10.8) 10/15/16 10:55 Total Bilirubin 0.7 mg/dL (0.2-1.2) 10/15/16 10:55 AST 102 Units/L (5-34) H 10/15/16 10:55 ALT 27 Units/L (0-55) 10/15/16 10:55 Alkaline Phosphatase 102 Units/L (38-126) 10/15/16 10:55 Serum Total Protein 7.6 g/dL (6.0-8.3) 10/15/16 10:55 Albumin 2.9 g/dL (3.5-5.0) L 10/15/16 10:55 Globulin 4.7 g/dL (2.4-3.5) H 10/15/16 10:55 Albumin/Globulin Ratio 0.6 (1.1-2.2) L 10/15/16 10:55 Specimen Rejected Hemolyzed 10/15/16 10:55 Impressions 3D Reconstruction 10/15/16 00:00 IMPRESSION: No acute traumatic injury of the facial bones. D/ / Kamari Machado MD / Kamari Machado MD Interpreting Provider: Kamari Machado MD Chest X-Ray 10/15/16 10:04 IMPRESSION: 1. Acute mildly displaced right 7th and 8th rib fractures. No pneumothorax. 2. Right lower lobe opacity, which may represent pneumonia or lung contusion. Recommend follow-up to ensure resolution. D/ / Mona Grewal MD / Mona Grewal MD Interpreting Provider: Mona Grewal MD Elbow X-Ray 10/15/16 10:04 IMPRESSION: Normal alignment with no acute fracture. D/ / 10/15/2016 11:07:24 Gregg Andres MD / gunner Interpreting Provider: Gregg Andres MD Face CT 10/15/16 10:04 IMPRESSION: No acute traumatic injury of the facial bones. D/ / Kamari Machado MD / Kamari Machado MD Interpreting Provider: Kamari Machado MD Head CT 10/15/16 10:04 IMPRESSION: Stable atrophy and chronic small vessel ischemic changes with remote mild right frontal and basal ganglia infarcts. No acute intracranial abnormality. D/ / 10/15/2016 10:57:17 Gregg Andres MD / gunner Interpreting Provider: Gregg Andres MD Knee X-Ray 10/15/16 10:04 IMPRESSION: 1. Osteopenia and evidence of an acute fracture. 2. Mild degenerative changes bilaterally with chondrocalcinosis. D/ / Jose L Vegas MD / Jose L Vegas MD Interpreting Provider: Jose L Vegas MD Wrist X-Ray 10/15/16 10:04 IMPRESSION: Normal alignment with no acute fracture. Degenerative changes. D/ / Gregg Andres MD / Gregg Andres MD Interpreting Provider: Gregg Andres MD Vital Signs Temperature 97.4 F L 10/15/16 09:39 Pulse Rate 100 10/15/16 09:39 Respiratory Rate 25 10/15/16 09:39 Blood Pressure 92/71 10/15/16 09:39 O2 Sat by Pulse Oximetry 93 L 10/15/16 09:39 Temperature 98.6 F 10/15/16 20:18 Pulse Rate 94 10/15/16 20:18 Respiratory Rate 14 10/15/16 20:18 Blood Pressure 118/83 10/15/16 20:18 O2 Sat by Pulse Oximetry 95 10/15/16 20:18 Oxygen Delivery Oxygen Delivery Nasal Cannula Fall - MDM Narrative Medical decision making narrative: Patient is a 71-year-old white female who sustained a mechanical fall secondary to generalized weakness and was brought into the emergency department this point for evaluation. Patient had fallen on October 10 and was hospitalized for right lower rib fractures at that time it was recommended that she be discharged to an extended care facility but patient refused at that time. Patient returns with worsening generalized weakness, worsening coarse sounding nonproductive cough and second fall. Following thorough evaluation, patient did not have any orthopedic injuries related to her fall today. Patient does have a right lower lobe pneumonia on chest x-ray and persistent hypoxia requiring nasal cannula oxygen. She has been hemodynamically stable and mental status remains intact with no change in her neurologic status following head injury. CT head is negative for any acute intracranial injury. Due to persistent hypoxia on room air, she will be admitted for right lower lobe pneumonia, continued on supple and oxygen in blood cultures pending. IV antibiotics were initiated in the emergency department. - Lab Data Result diagrams: 10/15/16 10:55 10/15/16 10:55 Lab Results 10/15/16 10/15/16 10/15/16 Range/Units 10:55 10:55 10:55 WBC 10.5 D (4.3-11.1) K/mcL RBC 4.41 (3.82-4.97) M/mcL Hgb 13.3 (11.5-15.4) g/dL Hct 39.3 (35.3-44.9) % MCV 89.1 (83.0-100.0) fL MCH 30.2 (28.0-33.3) pg MCHC 33.8 (31.6-35.5) g/dL RDW 12.4 (11.5-14.5) % Plt Count 215 (140-400) K/mcL MPV 9.6 (9.4-12.4) fL Immature Gran % 0.4 (0-4) % Seg Neutrophils % 86.9 % Lymphocytes % 7.9 % Monocytes % 4.7 % Eosinophils % 0.0 % Basophils % 0.1 % Neutrophils # 9.1 H (1.6-8.9) K/mcL Lymphocytes # 0.8 (0.6-4.6) K/mcL Monocytes # 0.5 (0.0-1.3) K/mcL Eosinophils # 0.0 (0.0-0.6) K/mcL Basophils # 0.0 (0.0-0.2) K/mcL PT 14.5 H (9.4-12.1) Seconds INR 1.3 APTT 29.6 (26.0-36.0) Seconds Sodium 133 L (136-145) mEq/L Potassium 3.5 (3.5-4.5) mEq/L Chloride 91 L (98-109) mEq/L Carbon Dioxide 31 H (19-29) mEq/L BUN 15 (7-20) mg/dL Creatinine 0.85 (0.57-1.11) mg/dL Est GFR ( Amer) > 60 (> 60) Est GFR (Non-Af Amer) > 60 (> 60) BUN/Creatinine Ratio 18 (6-26) Glucose 129 H (70-99) mg/dL Calculated Osmolality 279 L (280-300) Lactic Acid (0.5-2.2) mmol/L Calcium 8.8 (8.6-10.8) mg/dL Total Bilirubin 0.7 (0.2-1.2) mg/dL AST 102 H (5-34) Units/L ALT 27 (0-55) Units/L Alkaline Phosphatase 102 (38-126) Units/L Serum Total Protein 7.6 (6.0-8.3) g/dL Albumin 2.9 L (3.5-5.0) g/dL Globulin 4.7 H (2.4-3.5) g/dL Albumin/Globulin Ratio 0.6 L (1.1-2.2) Specimen Rejected 10/15/16 10/15/16 Range/Units 10:55 11:22 WBC (4.3-11.1) K/mcL RBC (3.82-4.97) M/mcL Hgb (11.5-15.4) g/dL Hct (35.3-44.9) % MCV (83.0-100.0) fL MCH (28.0-33.3) pg MCHC (31.6-35.5) g/dL RDW (11.5-14.5) % Plt Count (140-400) K/mcL MPV (9.4-12.4) fL Immature Gran % (0-4) % Seg Neutrophils % % Lymphocytes % % Monocytes % % Eosinophils % % Basophils % % Neutrophils # (1.6-8.9) K/mcL Lymphocytes # (0.6-4.6) K/mcL Monocytes # (0.0-1.3) K/mcL Eosinophils # (0.0-0.6) K/mcL Basophils # (0.0-0.2) K/mcL PT (9.4-12.1) Seconds INR APTT (26.0-36.0) Seconds Sodium (136-145) mEq/L Potassium (3.5-4.5) mEq/L Chloride (98-109) mEq/L Carbon Dioxide (19-29) mEq/L BUN (7-20) mg/dL Creatinine (0.57-1.11) mg/dL Est GFR ( Amer) (> 60) Est GFR (Non-Af Amer) (> 60) BUN/Creatinine Ratio (6-26) Glucose (70-99) mg/dL Calculated Osmolality (280-300) Lactic Acid 2.2 (0.5-2.2) mmol/L Calcium (8.6-10.8) mg/dL Total Bilirubin (0.2-1.2) mg/dL AST (5-34) Units/L ALT (0-55) Units/L Alkaline Phosphatase (38-126) Units/L Serum Total Protein (6.0-8.3) g/dL Albumin (3.5-5.0) g/dL Globulin (2.4-3.5) g/dL Albumin/Globulin Ratio (1.1-2.2) Specimen Rejected Hemolyzed
[2016-10-15 11:07] LABS: Basophils % 0.1 %; Hematocrit 39.3 % (35.3-44.9); Hemoglobin 13.3 g/dL (11.5-15.4); Immature Granulocytes % 0.4 % (0-4); Lymphocytes # 0.8 K/mcL (0.6-4.6); Lymphocytes % 7.9 %; Mean Corpuscular HGB Conc 33.8 g/dL (31.6-35.5); Mean Corpuscular Hemoglobin 30.2 pg (28.0-33.3); Mean Corpuscular Volume 89.1 fL (83.0-100.0); Mean Platelet Volume 9.6 fL (9.4-12.4); Monocytes # 0.5 K/mcL (0.0-1.3); Monocytes % 4.7 %; Platelet Count 215 K/mcL (140-400); Red Blood Count 4.41 M/mcL (3.82-4.97); Red Cell Distribution Width 12.4 % (11.5-14.5); Segmented Neutrophils % 86.9 %
[2016-10-15 11:11] LABS: INR 1.3; Prothrombin Time 14.5 Seconds (9.4-12.1)
[2016-10-15 11:14] LABS: Activated Partial Thrombo Time 29.6 Seconds (26.0-36.0)
[2016-10-15 11:16] LABS: Neutrophils # 9.1 K/mcL (1.6-8.9)
[2016-10-15 11:21] LABS: Alanine Aminotransferase 27 Units/L (0-55); Albumin 2.9 g/dL (3.5-5.0); Albumin/Globulin Ratio 0.6 (1.1-2.2); Alkaline Phosphatase 102 Units/L (38-126); Aspartate Amino Transferase 102 Units/L (5-34); BUN/Creatinine Ratio 18 (6-26); Bilirubin,Total 0.7 mg/dL (0.2-1.2); Blood Urea Nitrogen 15 mg/dL (7-20); Calcium 8.8 mg/dL (8.6-10.8); Carbon Dioxide 31 mEq/L (19-29); Chloride 91 mEq/L (98-109); Globulin 4.7 g/dL (2.4-3.5); Glucose 129 mg/dL (70-99); Osmolality,Calculated 279 (280-300); Potassium 3.5 mEq/L (3.5-4.5); Sodium 133 mEq/L (136-145); Total Protein 7.6 g/dL (6.0-8.3); eGFR For African Americans > 60 (> 60); eGFR For Non-African Americans > 60 (> 60)
[2016-10-15] MEDS ORDERED: Azithromycin 500 MG in D5% in Water 250 ML IVPB ONE (12:14)
[2016-10-15] MEDS ORDERED: CefTRIAXone 1,000 MG VIAL ONE (13:02)
[2016-10-15] MEDS ORDERED: Acetaminophen 325 MG TABLET PO PRN (13:31)
[2016-10-15] MEDS ORDERED: Naloxone 0.4 MG/ML INJ IVP PRN (13:31)
--- NOTE | 2016-10-15 15:31 | Internal Med History&Physical ---
Date of Encounter: 10/15/16 Time of Encounter: 15:00 Assessment and Plan (1) Pneumonia Current visit: Yes Status: Suspected Admit inpatient. Patient was recently admitted to the [facility] at risk for healthcare associated pneumonia. Will treat with broad-spectrum antibiotics. Send blood for culture. The right lung opacity could also be lung contusion. IV hydration. Qualifiers: Pneumonia type: due to methicillin-resistant Staphylococcus aureus (MRSA) Laterality: right Lung location: lower lobe of lung Qualified Code(s): J15.212 - Pneumonia due to Methicillin resistant Staphylococcus aureus (2) Falls Current visit: Yes Status: Acute Recurrent falls with recent rib fracture. Patient will need [facility]. Patient and family are agreeable to this. Will consult social media senior associate to make arrangements. Physical therapy in the interim. Qualifiers: Encounter type: subsequent encounter Qualified Code(s): W19.XXXD - Unspecified fall, subsequent encounter (3) Cigarette smoker Current visit: No Status: Chronic Chronic smoker. We will arrange for nicotine patch as needed. (4) Hypotension Current visit: No Status: Chronic Chronic hypertension. Patient has been started on Florinef and midodrine during her last hospitalization. Will continue these medications. Continue to monitor blood pressure closely. Qualifiers: Hypotension type: unspecified hypotension type Qualified Code(s): I95.9 - Hypotension, unspecified Internal Medicine - H&P: HPI Chief complaint: Falls, cough, right chest wall pain Admitted From: Emergency Dept Plans for Post Hospital Care: [facility] History of present illness: Ms. Loera is a 71 year old female with history of previous CVA with left-sided weakness, hypertension, hyperlipidemia, peripheral artery disease, chronic hypotension with possible adrenal insufficiency presented to the ER with complaints of fall. Patient had just been discharged from the hospital 4 days back after she was evaluated for orthostatic hypotension and falls. At that time she was started on Florinef and midodrine which she has been taking. She still fell yesterday after an episode of dizziness. Denies any palpitations. She does have right-sided lower chest pain from recent rib fractures and has troubles with deep breaths. She does complain of cough. No hemoptysis. No fever or chills or night sweats reported. No nausea or vomiting. Past Med Surg Social Fam HX - Past Medical History Medical history: arthritis, CVA, hyperlipidemia, hypertension, migraine, peripheral artery disease, TIA Psychiatric history: anxiety, depression - Past Surgical History Surgical History: carotid endarterectomy, cholecystectomy, other, vascular surgery, LE vascular intervention - Social History Smoking Status: Current every day smoker Smokeless Tobacco Status: No Alcohol use: none Drug use: none - Family History Father Adopted: No Family Member Ethnicity: Non- Living Status: Hx Family Cardiac Disorders: Yes Mother Living Status: Hx Family Cardiac Disorders: Yes (heart strokes) Hx Family Cancer: Yes (colon cancer) Hx Family Endocrine Disorder: Yes Internal Medicine - H&P: Meds Aspirin Enteric Coated [Aspirin EC] 81 mg PO DAILY 02/20/16 [History] Clopidogrel [Plavix] 75 mg PO DAILY 02/20/16 [History] Gabapentin [Neurontin] 600 mg PO QID PRN 02/20/16 [History] Vit C/E/Zn/Coppr/Lutein/Zeaxan [Preservision Areds 2 Softgel] 1 cap PO BID 06/13 [History] Cholecalciferol (Vitamin D3) [Vitamin D3] 1,000 unit PO DAILY 07/02/16 [History] Cyanocobalamin (Vitamin B-12) [Vitamin B12] 1,000 mcg PO DAILY 07/02/16 [History ] Simvastatin [Zocor] 20 mg PO HS 07/02/16 [History] ClonazePAM [Klonopin] 0.5 mg PO BID PRN #15 tablet 07/16/16 [Rx] Fludrocortisone Acetate [Florinef] 0.1 mg PO DAILY #30 tablet 07/16/16 [Rx] Duloxetine [Cymbalta] 30 mg PO DAILY #20 09/05/16 [Rx] Ascorbate Calcium [Vitamin C] 500 mg PO DAILY 10/10/16 [History] Cyclobenzaprine HCl 2.5 mg PO TID 10/10/16 [History] HYDROcodone/Acet 5/325 mg [[place] 5-325 mg] 1 tab PO BID PRN 10/10/16 [History] Mirtazapine [Remeron] 15 mg PO HS 10/10/16 [History] Potassium Chloride [K-Tab ER] 10 meq PO BID 10/10/16 [History] TraZODone 50 - 100 mg PO HS 10/10/16 [History] Midodrine [ProAmatine] 5 mg PO 0800,1200,1700 30 Days 10/12/16 [Rx] Allergies Sulfa (Sulfonamide Antibiotics) Allergy (Verified 10/15/16 11:36) Rash All Systems PM: A 10-system review of systems was performed and is negative for pertinent findings except as documented above in the HPI. - Constitutional Constitutional: falls, no chills, no fever(s), no night sweats - EENT Eyes: no change in vision, no discharge, no pain, no photophobia Ears: no ear discharge, no ear pain, no tinnitus Nose, mouth and throat: no dysphagia, no nasal discharge, no neck pain, no sore throat - Cardiovascular Cardiovascular ROS IM: lightheadedness, no chest pain, no diaphoresis, no dyspnea, no palpitations, no syncope - Respiratory Respiratory: cough, pain on inspiration, pain with cough, no dyspnea, no wheezing, no excessive phlegm production - Gastrointestinal Gastrointestinal: no abdominal pain, no diarrhea, no hematemesis, no hematochezia, no melena, no nausea, no vomiting - Genitourinary Genitourinary: no change in urinary stream, no dysuria, no flank pain, no hematuria - Musculoskeletal Musculoskeletal ROS IM: no numbness, no tingling - Integumentary Integumentary IM: no rash, no unusual bruising - Neurological Neurological ROS: focal weakness (left sided), weakness, no confusion, no convulsions, no numbness, no tingling, no tremor(s) - Hematologic/Lymphatic Hematologic/Lymphatic: no easy bruising - Constitutional Vitals: Temp Pulse Resp BP Pulse Ox 98.4 F 95 18 121/80 94 L 10/15/16 13:51 10/15/16 13:51 10/15/16 13:51 10/15/16 13:51 10/15/16 13:51 General appearance: Present: cooperative, mild distress, A&O X 3, answers questions appropriately - Eye Eye exam: Present: PERRL, conjuntiva pink, sclera anicteric Pupils: Present: PERRL - Neck Neck exam general surgery: Present: supple, trachea midline. Absent: lymphadenopathy - Respiratory Respiratory exam: Present: chest wall tenderness (Right-sided lower chest wall tenderness), decreased breath sounds (Right base), CTAB. Absent: accessory muscle use, rales, rhonchi, wheezes - Cardiovascular Cardiovascular exam: Present: RRR, +S1, +S2. Absent: diastolic murmur, gallop, rubs, systolic murmur - GI/Abdominal GI/Abdominal exam: Present: normal bowel sounds, soft, no peritoneal signs. Absent: distended, tenderness - Extremities Exam Extremities exam: Present: warm, radial pulses palpable and symetrical. Absent : calf tenderness, cyanotic, pedal edema - Neurological Exam Neurological exam: Present: CN II-XII intact, oriented X3. Absent: facial droop , speech deficit Additional comments: Decreased strength in left upper and lower extremity. - Skin Skin exam: Present: dry, intact Internal Med - H&P Results - Labs CBC & Chem 7: 10/15/16 10:55 10/15/16 10:55 - Impressions Impressions 3D Reconstruction 10/15/16 00:00 IMPRESSION: No acute traumatic injury of the facial bones. D/ / Kamari Machado MD / Kamari Machado MD Interpreting Provider: Kamari Machado MD Chest X-Ray 10/15/16 10:04 IMPRESSION: 1. Acute mildly displaced right 7th and 8th rib fractures. No pneumothorax. 2. Right lower lobe opacity, which may represent pneumonia or lung contusion. Recommend follow-up to ensure resolution. D/ / 10/15/2016 11:53:10 Mona Grewal MD / Courtney Brown Interpreting Provider: Mona Grewal MD Elbow X-Ray 10/15/16 10:04 IMPRESSION: Normal alignment with no acute fracture. D/ / 10/15/2016 11:07:24 Gregg Andres MD / earno Interpreting Provider: Gregg Andres MD Face CT 10/15/16 10:04 IMPRESSION: No acute traumatic injury of the facial bones. D/ / Kamari Machado MD / Kamari Machado MD Interpreting Provider: Kamari Machado MD Head CT 10/15/16 10:04 IMPRESSION: Stable atrophy and chronic small vessel ischemic changes with remote mild right frontal and basal ganglia infarcts. No acute intracranial abnormality. D/ / 10/15/2016 10:57:17 Gregg Andres MD / earnold Interpreting Provider: Gregg Andres MD Knee X-Ray 10/15/16 10:04 IMPRESSION: 1. Osteopenia and evidence of an acute fracture. 2. Mild degenerative changes bilaterally with chondrocalcinosis. D/ / Jose L Vegas MD / Jose L Vegas MD Interpreting Provider: Jose L Vegas MD Wrist X-Ray 10/15/16 10:04 IMPRESSION: Normal alignment with no acute fracture. Degenerative changes. D/ / Gregg Andres MD / Gregg Andres MD Interpreting Provider: Gregg Andres MD - Attending Attestation This document has been at least partially created by [employer] recognition technology by Dr. Hdz. Errors in grammar, wording or other phrases may exist. If errors are found after the documentation is signed, they will be addressed individually in the addendum section of this document when appropriate.
[2016-10-15] MEDS ORDERED: Gabapentin 300 MG CAPSULE PO PRN (15:43)
[2016-10-15] MEDS ORDERED: Vancomycin 750 MG in D5% in Water 250 ML IVPB SCH (16:00)
[2016-10-15] MEDS: Vancomycin 750 MG in D5% in Water 250 ML IVPB SCH (17:25)
[2016-10-15] MEDS: *HR* Heparin 5,000 UNIT/ML VIAL SQ SCH ×2 (18:47→23:14)
[2016-10-15] MEDS: 0.9 % Sodium Chloride 1,000 ML IVC SCH (18:48)
[2016-10-15] MEDS: Levofloxacin 750 MG/150 ML 750 MG/150 ML BAG IVPB SCH (18:48)
[2016-10-15] MEDS: *HR* HYDROcodone/Acet 5/325 mg TABLET PO PRN (18:58)
[2016-10-15] MEDS: clonazePAM 0.5 MG TABLET PO PRN (20:54)
[2016-10-15] MEDS: Mirtazapine 15 MG TABLET PO SCH (20:54)
[2016-10-15] MEDS: traZODone 50 MG TABLET PO SCH (20:54)
[2016-10-16] MEDS: 0.9 % Sodium Chloride 1,000 ML IVC SCH ×3 (05:26→21:59)
[2016-10-16] MEDS: Vancomycin 750 MG in D5% in Water 250 ML IVPB SCH (05:27)
[2016-10-16] MEDS: *HR* Heparin 5,000 UNIT/ML VIAL SQ SCH ×3 (05:28→21:22)
[2016-10-16 05:37] LABS: Basophils % 0.1 %; Eosinophils # 0.1 K/mcL (0.0-0.6); Eosinophils % 2.1 %; Hemoglobin 12.7 g/dL (11.5-15.4); Immature Granulocytes % 0.4 % (0-4); Lymphocytes # 0.7 K/mcL (0.6-4.6); Lymphocytes % 10.9 %; Mean Corpuscular HGB Conc 33.4 g/dL (31.6-35.5); Mean Corpuscular Hemoglobin 29.2 pg (28.0-33.3); Mean Corpuscular Volume 87.4 fL (83.0-100.0); Mean Platelet Volume 9.5 fL (9.4-12.4); Monocytes # 0.3 K/mcL (0.0-1.3); Monocytes % 4.6 %; Neutrophils # 5.5 K/mcL (1.6-8.9); Platelet Count 197 K/mcL (140-400); Red Blood Count 4.35 M/mcL (3.82-4.97); Red Cell Distribution Width 12.4 % (11.5-14.5); Segmented Neutrophils % 81.9 %
[2016-10-16 05:51] LABS: BUN/Creatinine Ratio 15 (6-26); Blood Urea Nitrogen 11 mg/dL (7-20); Calcium 8.4 mg/dL (8.6-10.8); Carbon Dioxide 28 mEq/L (19-29); Chloride 96 mEq/L (98-109); Glucose 123 mg/dL (70-99); Osmolality,Calculated 277 (280-300); Potassium 3.4 mEq/L (3.5-4.5); Sodium 133 mEq/L (136-145); eGFR For African Americans > 60 (> 60); eGFR For Non-African Americans > 60 (> 60)
[2016-10-16] MEDS: *HR* HYDROcodone/Acet 5/325 mg TABLET PO PRN ×2 (07:22→21:18)
[2016-10-16] MEDS: Cholecalciferol (D-3) 1,000 UNIT TABLET PO SCH (08:10)
[2016-10-16] MEDS: Cyanocobalamin (B-12) 1,000 MCG TABLET PO SCH (08:11)
[2016-10-16] MEDS: Levofloxacin 750 MG/150 ML 750 MG/150 ML BAG IVPB SCH (08:11)
[2016-10-16] MEDS: Aspirin Enteric Coated 81 MG Tablet PO SCH (08:11)
[2016-10-16] MEDS: clonazePAM 0.5 MG TABLET PO PRN ×2 (10:56→21:17)
--- NOTE | 2016-10-16 15:01 | Internal Med Progress Note ---
Date of Encounter: 10/16/16 Time of Encounter: 14:59 - Assessment and plan (1) Falls Current Visit: Yes Status: Acute Assessment and plan: has has frequent falls in the past and has rib fractures. this time she has another fall, she says she slid and fell and she was not dizzy or weak and had no chest pain or sob. her BP was on the lower side when she came, currently better with IVF. she has fractures of 8,9,10 ribs on the right. she will need evaluation by PT/OT and will need possible placement at [facility]. Qualifiers: Encounter type: subsequent encounter Qualified Code(s): W19.XXXD - Unspecified fall, subsequent encounter (2) RLL pneumonia Current Visit: Yes Status: Acute Assessment and plan: CXR done at admission shows RLL opacity, unclear if this is contusion or pneumonia. This is new as compared to CXR on 10/10 when she had the fracture. she says she has been coughing and this is not new. there is no fever or leukocytosis at this time. We will continue antibiotics for now, will send sputum for cultures and Gram stain. will de- escalate antibiotics depending on the sputum culture and Gram stain results. Qualifiers: Pneumonia type: due to unspecified organism Qualified Code(s): J18.1 - Lobar pneumonia, unspecified organism (3) Hypotension Current Visit: No Status: Acute Assessment and plan: Blood pressure low at the time of admission. She was diagnosed with adrenal insufficiency on last admission and was started on cortisone, Florinef and midodrine. However she admits to not taking one of those as the pharmacy did not have the right dose. She has been restarted on all of her medications, blood pressure currently is stable. Will try to wean her off IV fluids Qualifiers: Hypotension type: orthostatic hypotension Qualified Code(s): I95.1 - Orthostatic hypotension (4) Ribs, multiple fractures Current Visit: No Status: Acute Assessment and plan: from a fall and this is not new. stable Qualifiers: Encounter type: initial encounter Fracture type: closed Laterality: right Qualified Code(s): S22.41XA - Multiple fractures of ribs, right side, initial encounter for closed fracture - Time Spent With Patient 25 - 35 minutes - Subjective Interval history: Patient seen at the bedside, denies any chest pain or shortness of breath at this time. Reports of cough with productive yellow sputum that she says is chronic. Was recently discharged from the hospital for a fall, had another episode of fall which she says was not driven by dizziness or weakness. She says she tripped and fell. She was diagnosed with adrenal insufficiency and was started on Midodrine, cortisone and Florinef. However she says she was only able to take 2 of those medications given unavailability also wanted to medications and the pharmacy. She reports that her blood pressure has been relatively low at home, however she did not experience any dizziness or weakness at home. - Constitutional Vitals: Temp Pulse Resp BP Pulse Ox 97.9 F 96 16 148/90 96 10/16/16 14:42 10/16/16 14:42 10/16/16 14:42 10/16/16 14:42 10/16/16 14:42 General appearance: Present: cooperative, A&O X 3, answers questions appropriately Exam: neck- supple chest- b/l clear, no added sounds CVS-s1 and s2, no mr//g abd-soft, non tender, bs are present ext- no edema, neuro- no focal deficit, alert and awake and orineted. Internal Medicine: Result - Labs CBC & Chem 7: 10/16/16 05:13 10/16/16 05:13 Labs: Short CBC 10/16/16 Range/Units 05:13 WBC 6.7 (4.3-11.1) K/mcL Hgb 12.7 (11.5-15.4) g/dL Hct 38.0 (35.3-44.9) % Plt Count 197 (140-400) K/mcL Neutrophils # 5.5 (1.6-8.9) K/mcL BMP 10/16/16 05:13 Sodium 133 L Potassium 3.4 L Chloride 96 L Carbon Dioxide 28 BUN 11 Creatinine 0.72 Glucose 123 H Calcium 8.4 L - ABG Interpretation ABG results: PT/INR, D-dimer PT 14.5 Seconds (9.4-12.1) H 10/15/16 10:55 Consult Discharge Plan - Plan Referrals: Emmett Perez MD [Primary Care Provider] - 11/01/16 3:15 pm
[2016-10-16] MEDS: traZODone 50 MG TABLET PO SCH (21:17)
[2016-10-16] MEDS: Nicotine 14 MG PATCH.TD24 TD SCH (21:17)
[2016-10-16] MEDS: Mirtazapine 15 MG TABLET PO SCH (21:17)
[2016-10-17] MEDS ORDERED: Vancomycin 750 MG in D5% in Water 250 ML IVPB SCH (05:00)
[2016-10-17] MEDS: *HR* HYDROcodone/Acet 5/325 mg TABLET PO PRN ×2 (05:00→16:53)
[2016-10-17] MEDS ORDERED: Aminoglycoside Consult 1 EACH MC ONE (08:07)
[2016-10-17] MEDS ORDERED: Nicotine 14 MG PATCH.TD24 TD SCH (09:00)
[2016-10-17] MEDS: Aspirin Enteric Coated 81 MG Tablet PO SCH (09:11)
[2016-10-17] MEDS: Cholecalciferol (D-3) 1,000 UNIT TABLET PO SCH (09:11)
[2016-10-17] MEDS: clonazePAM 0.5 MG TABLET PO PRN ×2 (09:11→20:47)
[2016-10-17] MEDS: Nicotine 14 MG PATCH.TD24 TD SCH (09:12)
[2016-10-17] MEDS: Cyanocobalamin (B-12) 1,000 MCG TABLET PO SCH (09:12)
[2016-10-17] MEDS: *HR* Heparin 5,000 UNIT/ML VIAL SQ SCH ×3 (09:13→20:50)
--- NOTE | 2016-10-17 16:33 | Internal Med Progress Note ---
Date of Encounter: 10/17/16 Time of Encounter: 16:31 - Assessment and plan (1) Falls Current Visit: Yes Status: Acute Assessment and plan: has has frequent falls in the past and has rib fractures. this time she has another fall, she says she slid and fell and she was not dizzy or weak and had no chest pain or sob. her BP was on the lower side when she came, currently better with IVF. she has fractures of 8,9,10 ribs on the right. awaiting approval for ECF. Qualifiers: Encounter type: subsequent encounter Qualified Code(s): W19.XXXD - Unspecified fall, subsequent encounter (2) RLL pneumonia Current Visit: Yes Status: Acute Assessment and plan: CXR done at admission shows RLL opacity, unclear if this is contusion or pneumonia. This is new as compared to CXR on 10/10 when she had the fracture. she says she has been coughing and this is not new. there is no fever or leukocytosis at this time. We will continue antibiotics for now, stop vanco, will continue levoflox for 7 days. sputum is prelim negative for MRSA Qualifiers: Pneumonia type: due to unspecified organism Qualified Code(s): J18.1 - Lobar pneumonia, unspecified organism (3) Hypotension Current Visit: No Status: Acute Assessment and plan: Blood pressure low at the time of admission. She was diagnosed with adrenal insufficiency on last admission and was started on cortisone, Florinef and midodrine. However she admits to not taking one of those as the pharmacy did not have the right dose. She has been restarted on all of her medications, blood pressure currently is stable. Will try to wean her off IV fluids Qualifiers: Hypotension type: orthostatic hypotension Qualified Code(s): I95.1 - Orthostatic hypotension (4) Ribs, multiple fractures Current Visit: No Status: Acute Assessment and plan: from a fall and this is not new. stable Qualifiers: Encounter type: initial encounter Fracture type: closed Laterality: right Qualified Code(s): S22.41XA - Multiple fractures of ribs, right side, initial encounter for closed fracture - Time Spent With Patient 25 - 35 minutes - Subjective Interval history: Patient seen at the bedside, denies any chest pain or shortness of breath at this time. Reports of cough with productive yellow sputum that she says is chronic. she c/o left sided hip pain today. Was recently discharged from the hospital for a fall, had another episode of fall which she says was not driven by dizziness or weakness. She says she tripped and fell. She was diagnosed with adrenal insufficiency and was started on Midodrine, cortisone and Florinef. However she says she was only able to take 2 of those medications given unavailability also wanted to medications and the pharmacy. She reports that her blood pressure has been relatively low at home, however she did not experience any dizziness or weakness at home. - Constitutional Vitals: Temp Pulse Resp BP Pulse Ox 98.1 F 100 16 126/84 94 L 10/17/16 15:00 10/17/16 15:00 10/17/16 15:00 10/17/16 15:00 10/17/16 15:00 General appearance: Present: cooperative, A&O X 3, answers questions appropriately Exam: neck- supple chest- b/l clear, no added sounds CVS-s1 and s2, no mr//g abd-soft, non tender, bs are present, left hip mild tenderness on movement, no bruise or swelling ext- no edema, neuro- no focal deficit, alert and awake and orineted. Internal Medicine: Result - Labs CBC & Chem 7: 10/16/16 05:13 10/16/16 05:13 - ABG Interpretation ABG results: PT/INR, D-dimer PT 14.5 Seconds (9.4-12.1) H 10/15/16 10:55 - Impressions Impressions Hip X-Ray 10/17/16 11:25 IMPRESSION: No acute fracture. D/ / Janet Coley MD / Janet Coley MD Interpreting Provider: Janet Coley MD Consult Discharge Plan - Plan Referrals: Emmett Perez MD [Primary Care Provider] - 11/01/16 3:15 pm
[2016-10-17] MEDS: 0.9 % Sodium Chloride 1,000 ML IVC SCH (18:17)
[2016-10-17] MEDS: Mirtazapine 15 MG TABLET PO SCH (20:46)
[2016-10-17] MEDS: traZODone 50 MG TABLET PO SCH (20:47)
[2016-10-18] MEDS: *HR* Heparin 5,000 UNIT/ML VIAL SQ SCH ×3 (06:47→22:12)
[2016-10-18] MEDS ORDERED: Levofloxacin 500 MG/100 ML 500 MG/100 ML BAG IVPB SCH (08:00)
--- NOTE | 2016-10-18 08:27 | Internal Med Progress Note ---
Date of Encounter: 10/18/16 Time of Encounter: 08:25 - Assessment and plan (1) Falls Current Visit: Yes Status: Acute Assessment and plan: Frequent falls. 10/15: Patient got up at 2:30 am to go to the bathroom but did not use her walker which she typically uses for assisted ambulation. She lost her balance and fell onto her left side. Patient denies any loss of consciousness, chest pain or headaches. Patient struck her left head and face left shoulder and left upper extremity on the ground. Chest X-ray shows fractures of 8,9,10 ribs on the right. pain control with norco. stop flexeril. PT/OT consulted. Awaiting placement to rehab, ECF requires final sputum results. Qualifiers: Encounter type: subsequent encounter Qualified Code(s): W19.XXXD - Unspecified fall, subsequent encounter (2) Ribs, multiple fractures Current Visit: No Status: Acute Assessment and plan: plan as above. Qualifiers: Encounter type: initial encounter Fracture type: closed Laterality: right Qualified Code(s): S22.41XA - Multiple fractures of ribs, right side, initial encounter for closed fracture (3) RLL pneumonia Current Visit: Yes Status: Acute Assessment and plan: 10/15: CXR reviewed by me and shows RLL opacity, could be contusion or pneumonia. Received IV Vancomycin for 2 days and rocephin for 1 day (start 10/15). Patient has productive cough of yellowish sputum. there is no fever or leukocytosis at this time. clinically improving. stop IV fluids. Repeat CXR today. continue oral levofloxacin. mucinex. incentive spirometry. Qualifiers: Pneumonia type: due to unspecified organism Qualified Code(s): J18.1 - Lobar pneumonia, unspecified organism (4) Adrenal insufficiency Current Visit: No Status: Chronic Assessment and plan: patient diagnosed with adrenal insufficiency and started on midodrine and fludrocortisone. 07/11/16: random cortisol was 0.7 mcg/dl (5) Hypotension Current Visit: No Status: Chronic Assessment and plan: hypovolemic hypotension on admission. resolved. continue home meds for adrenal insufficiency. Qualifiers: Hypotension type: unspecified hypotension type Qualified Code(s): I95.9 - Hypotension, unspecified (6) Hyponatremia Current Visit: No Status: Chronic Assessment and plan: mild hyponatremia. secondary to adrenal insufficiency. close monitor. (7) Coronary artery disease Current Visit: No Status: Chronic Assessment and plan: continue home meds. Qualifiers: Coronary Disease-Associated Artery/Lesion type: [place] artery [place] vs. transplanted heart: [place] heart Associated angina: without angina Qualified Code(s): I25.10 - Atherosclerotic heart disease of [place] coronary artery without angina pectoris (8) History of CVA with residual deficit Current Visit: No Status: Chronic (9) Cigarette smoker Current Visit: No Status: Chronic Assessment and plan: Nicotine patch. Patient counseled to quit smoking. - Subjective Interval history: patient reports productive cough of yellowish sputum since yesterday afternoon. Mild right sided rib pain. - Constitutional Vitals: Temp Pulse Resp BP Pulse Ox 98.5 F 100 15 105/69 94 L 10/18/16 06:44 10/18/16 06:44 10/18/16 06:44 10/18/16 06:44 10/18/16 06:44 General appearance: Present: cooperative, A&O X 3, pleasant, no acute distress, answers questions appropriately - Eye Eye exam: Present: PERRL, sclera anicteric - Neck Neck exam general surgery: Present: supple, trachea midline. Absent: lymphadenopathy - Respiratory Respiratory exam: Present: CTAB - Cardiovascular Cardiovascular exam: Present: tachycardia - GI/Abdominal GI/Abdominal exam: Present: normal bowel sounds, soft. Absent: distended, tenderness - Extremities Exam Extremities exam: Present: radial pulses palpable and symetrical. Absent: cyanotic, joint swelling, pedal edema - Back Exam Back exam: Absent: CVA tenderness (L), CVA tenderness (R) - Neurological Exam Neurological exam: Present: alert, oriented X3, no focal deficits, strengths equal and symetr throughout. Absent: facial droop, speech deficit Internal Medicine: Result - Labs CBC & Chem 7: 10/18/16 07:59 10/18/16 07:59 - ABG Interpretation ABG results: PT/INR, D-dimer PT 14.5 Seconds (9.4-12.1) H 10/15/16 10:55 - Impressions Impressions Hip X-Ray 10/17/16 11:25 IMPRESSION: No acute fracture. D/ / Janet Coley MD / Janet Coley MD Interpreting Provider: Janet Coley MD Consult Discharge Plan - Plan Referrals: Emmett Perez MD [Primary Care Provider] - 11/01/16 3:15 pm
[2016-10-18] MEDS ORDERED: clonazePAM 0.5 MG TABLET PO PRN (08:35)
[2016-10-18] MEDS ORDERED: Levofloxacin 750 MG/150 ML 750 MG/150 ML BAG IVPB SCH (09:00)
[2016-10-18 09:02] LABS: Basophils % 0.4 %; Eosinophils # 0.1 K/mcL (0.0-0.6); Eosinophils % 1.7 %; Hematocrit 37.7 % (35.3-44.9); Hemoglobin 12.9 g/dL (11.5-15.4); Immature Granulocytes % 0.2 % (0-4); Lymphocytes # 0.8 K/mcL (0.6-4.6); Lymphocytes % 17.5 %; Mean Corpuscular HGB Conc 34.2 g/dL (31.6-35.5); Mean Corpuscular Hemoglobin 30.4 pg (28.0-33.3); Mean Corpuscular Volume 88.7 fL (83.0-100.0); Mean Platelet Volume 9.9 fL (9.4-12.4); Monocytes # 0.3 K/mcL (0.0-1.3); Monocytes % 5.9 %; Neutrophils # 3.5 K/mcL (1.6-8.9); Platelet Count 243 K/mcL (140-400); Red Blood Count 4.25 M/mcL (3.82-4.97); Red Cell Distribution Width 12.9 % (11.5-14.5); Segmented Neutrophils % 74.3 %
[2016-10-18 09:16] LABS: BUN/Creatinine Ratio 15 (6-26); Blood Urea Nitrogen 12 mg/dL (7-20); Calcium 9.1 mg/dL (8.6-10.8); Carbon Dioxide 28 mEq/L (19-29); Chloride 99 mEq/L (98-109); Glucose 121 mg/dL (70-99); Magnesium 1.4 mg/dL (1.6-2.6); Osmolality,Calculated 283 (280-300); Potassium 3.4 mEq/L (3.5-4.5); Sodium 136 mEq/L (136-145); eGFR For African Americans > 60 (> 60); eGFR For Non-African Americans > 60 (> 60)
[2016-10-18] MEDS: *HR* HYDROcodone/Acet 5/325 mg TABLET PO PRN ×2 (09:52→20:18)
[2016-10-18] MEDS: Aspirin Enteric Coated 81 MG Tablet PO SCH (09:54)
[2016-10-18] MEDS: Cholecalciferol (D-3) 1,000 UNIT TABLET PO SCH (09:54)
[2016-10-18] MEDS: Cyanocobalamin (B-12) 1,000 MCG TABLET PO SCH (09:54)
[2016-10-18] MEDS: Nicotine 14 MG PATCH.TD24 TD SCH (09:59)
[2016-10-18] MEDS ORDERED: Magnesium Sulfate 1 GM in D5% in Water 100 ML IVPB ONE (13:57)
[2016-10-18] MEDS ORDERED: levoFLOXacin 750 MG TABLET PO SCH (14:00)
[2016-10-18] MEDS: traZODone 50 MG TABLET PO SCH (20:18)
[2016-10-19 05:20] LABS: BUN/Creatinine Ratio 18 (6-26); Blood Urea Nitrogen 14 mg/dL (7-20); Calcium 8.5 mg/dL (8.6-10.8); Carbon Dioxide 27 mEq/L (19-29); Chloride 99 mEq/L (98-109); Glucose 118 mg/dL (70-99); Magnesium 1.3 mg/dL (1.6-2.6); Osmolality,Calculated 282 (280-300); Phosphorous 3.4 mg/dL (2.3-4.7); Potassium 3.5 mEq/L (3.5-4.5); Sodium 135 mEq/L (136-145); eGFR For African Americans > 60 (> 60); eGFR For Non-African Americans > 60 (> 60)
[2016-10-19] MEDS: *HR* Heparin 5,000 UNIT/ML VIAL SQ SCH (05:33)
[2016-10-19] MEDS ORDERED: Magnesium Sulfate 3 GM in D5% in Water 100 ML IVPB STA (07:31)
[2016-10-19] MEDS ORDERED: Magnesium Sulfate 2 GM in D5% in Water 100 ML IVPB STA (07:34)
[2016-10-19] MEDS: Nicotine 14 MG PATCH.TD24 TD SCH (08:07)
[2016-10-19] MEDS: Cholecalciferol (D-3) 1,000 UNIT TABLET PO SCH (08:07)
[2016-10-19] MEDS: Cyanocobalamin (B-12) 1,000 MCG TABLET PO SCH (08:08)
[2016-10-19] MEDS: Aspirin Enteric Coated 81 MG Tablet PO SCH (08:08)
[2016-10-19] MEDS: *HR* HYDROcodone/Acet 5/325 mg TABLET PO PRN (08:18)
[2016-10-19] MEDS ORDERED: Magnesium Sulfate 1 GM in D5% in Water 100 ML IVPB ONE (08:30)
--- NOTE | 2016-10-19 08:37 | Discharge Summary ---
Date of Encounter: 10/19/16 Time of Encounter: 07:45 - Discharge Diagnosis (1) Falls Priority: Primary Status: Acute Qualifiers: Encounter type: subsequent encounter Qualified Code(s): W19.XXXD - Unspecified fall, subsequent encounter (2) Ribs, multiple fractures Priority: Primary Status: Acute Qualifiers: Encounter type: initial encounter Fracture type: closed Laterality: right Qualified Code(s): S22.41XA - Multiple fractures of ribs, right side, initial encounter for closed fracture (3) RLL pneumonia Priority: Primary Status: Acute Qualifiers: Pneumonia type: due to unspecified organism Qualified Code(s): J18.1 - Lobar pneumonia, unspecified organism (4) Adrenal insufficiency Priority: Secondary Status: Chronic (5) Hypotension Priority: Secondary Status: Chronic Qualifiers: Hypotension type: unspecified hypotension type Qualified Code(s): I95.9 - Hypotension, unspecified (6) Hyponatremia Priority: Secondary Status: Chronic (7) Coronary artery disease Priority: Secondary Status: Chronic Qualifiers: Coronary Disease-Associated Artery/Lesion type: [place] artery [place] vs. transplanted heart: [place] heart Associated angina: without angina Qualified Code(s): I25.10 - Atherosclerotic heart disease of [place] coronary artery without angina pectoris (8) History of CVA with residual deficit Priority: Secondary Status: Chronic (9) Cigarette smoker Priority: Secondary Status: Chronic - Discharge Medications Prescriptions: ClonazePAM [Klonopin] 0.5 mg PO DAILY PRN #14 tablet PRN Reason: Anxiety HYDROcodone/Acet 5/325 mg [[place] 5-325 mg] 1 tab PO BID PRN #14 tablet PRN Reason: Pain Home Medications: Aspirin Enteric Coated [Aspirin EC] 81 mg PO DAILY 02/20/16 [History] Clopidogrel [Plavix] 75 mg PO DAILY 02/20/16 [History] Gabapentin [Neurontin] 600 mg PO QID PRN 02/20/16 [History] Vit C/E/Zn/Coppr/Lutein/Zeaxan [Preservision Areds 2 Softgel] 1 cap PO BID 06/13 [History] Cholecalciferol (Vitamin D3) [Vitamin D3] 1,000 unit PO DAILY 07/02/16 [History] Cyanocobalamin (Vitamin B-12) [Vitamin B12] 1,000 mcg PO DAILY 07/02/16 [History ] Simvastatin [Zocor] 20 mg PO HS 07/02/16 [History] Fludrocortisone Acetate [Florinef] 0.1 mg PO DAILY #30 tablet 07/16/16 [Rx] Duloxetine [Cymbalta] 30 mg PO DAILY #20 09/05/16 [Rx] Ascorbate Calcium [Vitamin C] 500 mg PO DAILY 10/10/16 [History] Potassium Chloride [K-Tab ER] 10 meq PO BID 10/10/16 [History] Midodrine [ProAmatine] 5 mg PO 0800,1200,1700 30 Days 10/12/16 [Rx] ClonazePAM [Klonopin] 0.5 mg PO DAILY PRN #14 tablet 10/19/16 [Rx] GuaiFENesin ER [Mucinex] 600 mg PO BID 7 Days 10/19/16 [Rx] HYDROcodone/Acet 5/325 mg [[place] 5-325 mg] 1 tab PO BID PRN #14 tablet 10/19/16 [Rx] Levofloxacin 750 mg PO Q48H 1 Days 10/19/16 [Rx] Magnesium Oxide [Mag-Ox] 400 mg PO BID tablet 10/19/16 [Rx] Nicotine Patch [Nicoderm] 14 mg TD DAILY patch.td24 10/19/16 [Rx] TraZODone 50 mg PO HS #0 10/19/16 [Rx] Allergies/Adverse Reactions: Allergies Sulfa (Sulfonamide Antibiotics) Allergy (Verified 10/15/16 11:36) Rash Date of admission: 10/15/16 13:31 Primary care physician: Emmett Perez MD Consults: 10/16/16 08:29 Consult to Physical Therapy [CONS] Routine Comment: Evaluate, develop and implement POC OT [Consult to Occupational Therapy] [CONS] Routine Comment: Evaluate, develop and implement POC 10/16/16 15:48 Consult to Coiled Coil Inspector [CONS] Routine Reason for SW Consult: discharge planning; referral to [facility] - Patient Status Disposition: Transfer Inpatient Rehab Fac Condition: Good Functional capacity at discharge: uses cane/walker Overall status at discharge: patient is progressing back to baseline - Discharge Instructions Follow Up With: Emmett Perez MD [Primary Care Provider] - 11/01/16 3:15 pm - Diet and Activity Activity: as per physical therapy Diet: low fat, low cholesterol Interval History: right rib pain is better. mild productive cough. no hemoptysis. Hospital course: Ms. Loera is a 71 year old female ith past medical history of CVA with residual left-sided weakness, hypertension, CAD,and a recent diagnosis of adrenal insufficiency for which she takes midodrine and fludrocortisone (07/11/16: random cortisol was 0.7 mcg/dl). Patient has a history of multiple falls in the past. The day of admisison 10/15, patient got up at 2:30 am to go to the bathroom but did not use her walker which she typically uses for assisted ambulation. She lost her balance and fell onto her right side. Patient denies any loss of consciousness, chest pain or headaches. On admission, she was hypotensive likely fro hypovolemia and not taking her medications. Chest X-ray shows fractures of 8,9,10 ribs on the right, and RLL opacity that could be contusion or pneumonia. Given her symptoms of productive cough, she was started on levaquin for PNA. culture was negative. MRSA nasal screen was negative.repeat chest x-ray 10/18 reviewed by me shows resolving right basilar disease. PLAN: levaquin for a total of 5 days (stop day 10/20). repeat magnesium in 3 days and CXR in 4-6 weeks. - Time Spent with Patient Total time spent providing and/or coordinating discharge services: - Constitutional Vitals: Temp Pulse Resp BP Pulse Ox 98.3 F 78 16 132/84 95 10/19/16 07:10 10/19/16 07:10 10/19/16 07:10 10/19/16 07:10 10/19/16 07:10 General appearance: Present: cooperative, A&O X 3, pleasant, no acute distress, answers questions appropriately - Eye Eye exam: Present: PERRL, sclera anicteric - ENT ENT exam: Present: mucous membranes moist - Neck Neck exam general surgery: Present: supple, trachea midline. Absent: lymphadenopathy - Respiratory Respiratory exam: Present: decreased breath sounds (at right base), rhonchi - Cardiovascular Cardiovascular exam: Present: RRR - GI/Abdominal GI/Abdominal exam: Present: normal bowel sounds, soft. Absent: distended, tenderness - Extremities Exam Extremities exam: Absent: joint swelling, pedal edema - Back Exam Back exam: Absent: CVA tenderness (L), CVA tenderness (R) - Neurological Exam Neurological exam: Present: alert, oriented X3, no focal deficits, strengths equal and symetr throughout. Absent: facial droop, speech deficit - Skin Skin exam: Absent: rash
--- NOTE | 2016-10-19 08:57 | Physician Discharge Referral ---
ExtendedCare Referral Info Transfer To: [facility] Provider in Charge: junior Provider in Charge after Transfer: PCP Institutional Level of Care: Skilled - Diagnosis (1) Falls Status: Acute (2) Ribs, multiple fractures Status: Acute (3) RLL pneumonia Status: Acute (4) Adrenal insufficiency Status: Chronic (5) Hypotension Status: Chronic (6) Hyponatremia Status: Chronic (7) Coronary artery disease Status: Chronic (8) History of CVA with residual deficit Status: Chronic (9) Cigarette smoker Status: Chronic - Transfer Medications Prescriptions: ClonazePAM [Klonopin] 0.5 mg PO DAILY PRN #14 tablet PRN Reason: Anxiety HYDROcodone/Acet 5/325 mg [[place] 5-325 mg] 1 tab PO BID PRN #14 tablet PRN Reason: Pain Home Medications: Aspirin Enteric Coated [Aspirin EC] 81 mg PO DAILY 02/20/16 [History] Clopidogrel [Plavix] 75 mg PO DAILY 02/20/16 [History] Gabapentin [Neurontin] 600 mg PO QID PRN 02/20/16 [History] Vit C/E/Zn/Coppr/Lutein/Zeaxan [Preservision Areds 2 Softgel] 1 cap PO BID 06/13 [History] Cholecalciferol (Vitamin D3) [Vitamin D3] 1,000 unit PO DAILY 07/02/16 [History] Cyanocobalamin (Vitamin B-12) [Vitamin B12] 1,000 mcg PO DAILY 07/02/16 [History ] Simvastatin [Zocor] 20 mg PO HS 07/02/16 [History] Fludrocortisone Acetate [Florinef] 0.1 mg PO DAILY #30 tablet 07/16/16 [Rx] Duloxetine [Cymbalta] 30 mg PO DAILY #20 09/05/16 [Rx] Ascorbate Calcium [Vitamin C] 500 mg PO DAILY 10/10/16 [History] Potassium Chloride [K-Tab ER] 10 meq PO BID 10/10/16 [History] Midodrine [ProAmatine] 5 mg PO 0800,1200,1700 30 Days 10/12/16 [Rx] ClonazePAM [Klonopin] 0.5 mg PO DAILY PRN #14 tablet 10/19/16 [Rx] GuaiFENesin ER [Mucinex] 600 mg PO BID 7 Days 10/19/16 [Rx] HYDROcodone/Acet 5/325 mg [[place] 5-325 mg] 1 tab PO BID PRN #14 tablet 10/19/16 [Rx] Levofloxacin 750 mg PO Q48H 1 Days 10/19/16 [Rx] Magnesium Oxide [Mag-Ox] 400 mg PO BID tablet 10/19/16 [Rx] Nicotine Patch [Nicoderm] 14 mg TD DAILY patch.td24 10/19/16 [Rx] TraZODone 50 mg PO HS #0 10/19/16 [Rx] Allergies/Adverse Reactions: Allergies Sulfa (Sulfonamide Antibiotics) Allergy (Verified 10/15/16 11:36) Rash - Respiratory Orders Smoking Cessation: Smoking cessation has been advised. For more information, call the [employer] Tobacco Quit Line at 3-754-MGAY-NOW. - Lab Orders Lab Orders: Other (include drug levels w/frequency) (magnesium in 3 days. CXR in 4-6 errkd) - Advance Directives Code Status: Full Code - Mobility Orders Ambulate - Rehabiliation Orders Rehab Potential: Good Rehab Orders: Evaluation for Physical Therapy, Evaluation for Occupational Therapy - Diet Orders Cardiac CERTIFICATION: I certify that the transfer of the above named patient to an Extended Care Facility is necessary for the continuing treatment of the diagnosis listed. The above information is true and accurate reflection of patient's current condition. Confidential - Redisclosure prohibited without a patient's written consent.
[2016-10-19] MEDS: 0.9 % Sodium Chloride 1,000 ML IVC SCH (09:15)
[2016-10-19 10:38] VITALS: BP 128/89
[2016-10-20] MEDS ORDERED: Magnesium Oxide 400 MG TABLET PO SCH (09:00)
== END 2016-10-19 12:00 | DRG 194 ==
LOC: 3ANU 09:36 → EMEROO 09:36 → 3ANU 13:20 → SUATTDRO 13:31
PROVIDERS: ADMIT Internal Medicine; ATTEND Internal Medicine

== ENCOUNTER 2017-10-10 23:09 | Observation (INO) ==
--- NOTE | 2017-10-10 23:32 | Emergency Department Note ---
Disposition Clinical Impression: Syncope Qualifiers: Syncope type: Rehman-Back syncope Qualified Code(s): I45.9 - Conduction disorder, unspecified Disposition: Admitted As Inpatient Condition: Good General Adult HPI - General Chief complaint: ED Syncope Stated complaint: syncope/low bp Time Seen by Provider: 10/10/17 23:13 Source: patient, EMS Limitations: no limitations - History of Present Illness HPI Narrative: 72-year-old female with significant past medical history of hypertension and multiple syncopal episodes in the past presenting to the emergency department for syncopal episode. Patient states she went to go to the bathroom and that is last thing she remembers. According to EMS and they arrived her blood pressure was 66 systolic. Patient was difficult to arouse. Patient states the first thing she remembers is being in the hospital. She does not remember talking to EMS her being in the ambulance. Patient denies any chest pain, shortness of breath or dizziness. She does state she is on Plavix. Patient denies any recent illnesses, fevers or urinary symptoms. Pain Scale: 0 - Related Data Home Medications Medication Instructions Recorded Confirmed Ascorbate Calcium [Vitamin C] 500 mg PO DAILY 10/11/17 10/11/17 Aspirin [Lo-Dose Aspirin EC] 81 mg PO QID 10/11/17 10/11/17 Cholecalciferol (Vitamin D3) 1,000 unit PO DAILY 10/11/17 10/11/17 [Vitamin D] Clopidogrel [Plavix] 75 mg PO DAILY 10/11/17 10/11/17 Cyanocobalamin (Vitamin B-12) 1,000 mcg PO DAILY 10/11/17 10/11/17 [Vitamin B12] DULoxetine [Cymbalta] 30 mg PO BID 10/11/17 10/11/17 Docusate Sodium [Colace] 100 mg PO DAILY 10/11/17 10/11/17 Fludrocortisone Acetate [Florinef] 0.1 mg PO DAILY 10/11/17 10/11/17 Gabapentin [Neurontin] 600 mg PO TID 10/11/17 10/11/17 HYDROcodone/Acet 5/325 mg [[place] 1 tab PO BID PRN 10/11/17 10/11/17 5-325 mg] Magnesium Oxide [Magnesium] 400 mg PO DAILY 10/11/17 10/11/17 Midodrine [ProAmatine] 5 mg PO 0800,1200,1700 10/11/17 10/11/17 Potassium Chloride [Klor-Con 10 meq PO BID 10/11/17 10/11/17 Sprinkle] Simvastatin [Zocor] 20 mg PO HS 10/11/17 10/11/17 Vit C/E/Zn/Coppr/Lutein/Zeaxan 1 cap PO DAILY 10/11/17 10/11/17 [Preservision Areds 2 Softgel] clonazePAM [Clonazepam] 0.5 mg PO DAILY 10/11/17 10/11/17 Allergies Allergy/AdvReac Type Severity Reaction Status Date / Time Sulfa (Sulfonamide Allergy Rash Verified 10/15/16 11:36 Antibiotics) All systems ED: reviewed and negative except as stated. Neurological: Reports: other (syncope) Past Medical History - Past Medical History Attestation: Yes The following information was validated with the patient. Medical history: Reports: arthritis, CVA, hyperlipidemia, hypertension, migraine , peripheral artery disease, TIA Surgical history: Reports: carotid endarterectomy, cholecystectomy, other, vascular surgery, LE vascular intervention Psychiatric history: Reports: anxiety, depression REPAIR SPECIALIST history: Reports: no REPAIR SPECIALIST history - Social History Smoking Status: Current every day smoker Smokeless Tobacco Status: No Alcohol use: Reports: rarely Drug use: Reports: none Physical Exam - General Limitations: no limitations General appearance: alert, in no apparent distress - Head Head exam: atraumatic, normocephalic, normal inspection - Eye Eye exam: Present: normal appearance. Absent: scleral icterus, conjunctival injection - ENT ENT exam: normal exam, mucous membranes moist - Neck Neck exam: Present: normal inspection, full ROM. Absent: tenderness, meningismus - Chest Chest inspection: Present: normal inspection, symmetric chest wall rise. Absent : tenderness, rash - Respiratory Respiratory exam: Present: normal lung sounds bilaterally. Absent: respiratory distress, wheezes - Cardiovascular Cardiovascular exam: Present: regular rate, normal rhythm, normal heart sounds - Abdominal Exam Abdominal exam: Present: soft, Non-Tender. Absent: distention, guarding, rebound - Extremities Exam Extremities exam: Present: normal inspection, full ROM - Neurological Exam Neurological exam: Present: alert, oriented X3 - Psychiatric Psychiatric exam: Present: normal affect, normal mood - Skin Skin exam: Present: warm, intact Course Course Narrative: 72-year-old female presenting to the emergency department with syncope. She was hypotensive on their arrival with systolic in 60s patient is alert and oriented 3 in the room with stable vital signs at this time. Blood pressure in the 120s systolic. We will perform a syncope workup including CBC, BMP, troponin, x-ray, EKG. Patient is alert and oriented 3 in the room and agrees with this plan. Disposition pending results. - Reevaluation(s) Reevaluation #1: Patient's lab work within normal limits. EKG shows new T-wave inversion. We will admit the patient at this time for syncope. Patient is alert and oriented 3 in the room with stable vital signs. She agrees with this plan. Hospitalist on-call Dr. Hdz agrees to accept the patient Vital Signs Temperature 97.2 F L 10/10/17 23:16 Pulse Rate 65 10/10/17 23:16 Respiratory Rate 14 10/10/17 23:16 Blood Pressure 123/89 10/10/17 23:16 O2 Sat by Pulse Oximetry 93 10/10/17 23:16 Temperature 97.9 F 10/11/17 02:06 Pulse Rate 77 10/11/17 02:06 Respiratory Rate 16 10/11/17 02:26 Blood Pressure 131/102 10/11/17 02:26 O2 Sat by Pulse Oximetry 93 10/11/17 02:06 Oxygen Delivery Oxygen Delivery Nasal Cannula Medical Decision Making - Lab Data Result diagrams: 10/10/17 23:59 10/10/17 23:59 Lab Results 10/10/17 10/10/17 Range/Units 23:59 23:59 WBC 3.7 L (4.3-11.1) K/mcL RBC 4.11 (3.82-4.97) M/mcL Hgb 12.7 (11.5-15.4) g/dL Hct 39.3 (35.3-44.9) % MCV 95.6 (83.0-100.0) fL MCH 30.9 (28.0-33.3) pg MCHC 32.3 (31.6-35.5) g/dL RDW 13.6 (11.5-14.5) % Plt Count 125 L (140-400) K/mcL MPV 10.3 (9.4-12.4) fL Immature Gran % 0.3 (0-4) % Seg Neutrophils % 56.8 % Lymphocytes % 32.2 % Monocytes % 5.1 % Eosinophils % 5.1 % Basophils % 0.5 % Neutrophils # 2.1 (1.6-8.9) K/mcL Lymphocytes # 1.2 (0.6-4.6) K/mcL Monocytes # 0.2 (0.0-1.3) K/mcL Eosinophils # 0.2 (0.0-0.6) K/mcL Basophils # 0.0 (0.0-0.2) K/mcL Sodium 134 L (136-145) mEq/L Potassium 3.0 L (3.5-5.1) mEq/L Chloride 98 (98-107) mEq/L Carbon Dioxide 29 (23-29) mEq/L BUN 13 (8-23) mg/dL Creatinine 1.08 (0.60-1.20) mg/dL Est GFR ( Amer) > 60 (> 60) Est GFR (Non-Af Amer) 50 L (> 60) BUN/Creatinine Ratio 12 (6-26) Glucose 106 H (70-105) mg/dL Calculated Osmolality 279 L (280-300) Calcium 8.9 (8.6-10.3) mg/dL Troponin I < 0.03 (< 0.04) ng/mL - EKG Data EKG #1 EKG attestation: Yes I reviewed and interpreted this EKG. EKG results narrative: Sinus rhythm. Left ventricular hypertrophy T-wave inversion noted in 1, aVL, V4 , V5. Beats per minute. RI interval 181, QRS 84, QTc 451. No signs of acute ST segment elevation or ischemia noted. Compared to previous EKG completed on 08/12/2011 new T-wave inversion in 1, aVL, V4 and V5. Attestation Statement - Attestation Attestation: I examined this patient and my medical decision-making was reviewed with the Resident Physician. I agree with the documented findings, disposition and treatment plan as described except to the extent set forth below. Patient to the ED with a chief complaint of syncope. Patient was found unresponsive on the bathroom floor. When EMS arrived she was hypotensive with a systolic blood pressure 60. She has a history of similar episodes. On examination she is awake alert and pleasant here. Blood pressures 120 systolic. Lungs clear. Plan. The patient's workup is unremarkable. She does have some new anterolateral EKG changes. Patient is admitted to medicine.
[2017-10-11 00:09] LABS: Basophils % 0.5 %; Eosinophils # 0.2 K/mcL (0.0-0.6); Eosinophils % 5.1 %; Hematocrit 39.3 % (35.3-44.9); Hemoglobin 12.7 g/dL (11.5-15.4); Immature Granulocytes % 0.3 % (0-4); Lymphocytes # 1.2 K/mcL (0.6-4.6); Lymphocytes % 32.2 %; Mean Corpuscular HGB Conc 32.3 g/dL (31.6-35.5); Mean Corpuscular Hemoglobin 30.9 pg (28.0-33.3); Mean Corpuscular Volume 95.6 fL (83.0-100.0); Mean Platelet Volume 10.3 fL (9.4-12.4); Monocytes # 0.2 K/mcL (0.0-1.3); Monocytes % 5.1 %; Neutrophils # 2.1 K/mcL (1.6-8.9); Platelet Count 125 K/mcL (140-400); Red Blood Count 4.11 M/mcL (3.82-4.97); Red Cell Distribution Width 13.6 % (11.5-14.5); Segmented Neutrophils % 56.8 %
[2017-10-11 00:31] LABS: BUN/Creatinine Ratio 12 (6-26); Blood Urea Nitrogen 13 mg/dL (8-23); Calcium 8.9 mg/dL (8.6-10.3); Carbon Dioxide 29 mEq/L (23-29); Chloride 98 mEq/L (98-107); Glucose 106 mg/dL (70-105); Osmolality,Calculated 279 (280-300); Sodium 134 mEq/L (136-145); Troponin I < 0.03 ng/mL (< 0.04); eGFR For African Americans > 60 (> 60); eGFR For Non-African Americans 50 (> 60)
[2017-10-11] MEDS ORDERED: Naloxone 0.4 MG/ML INJ IVP PRN (02:24)
[2017-10-11] MEDS ORDERED: Acetaminophen 325 MG TABLET PO PRN (02:24)
[2017-10-11] MEDS ORDERED: Ringers Solution, Lactated 1,000 ML IVC SCH (02:30)
[2017-10-11 04:11] LABS: Basophils % 0.7 %; Eosinophils # 0.1 K/mcL (0.0-0.6); Hematocrit 37.4 % (35.3-44.9); Immature Granulocytes % 0.2 % (0-4); Lymphocytes # 1.2 K/mcL (0.6-4.6); Lymphocytes % 26.7 %; Mean Corpuscular HGB Conc 32.1 g/dL (31.6-35.5); Mean Corpuscular Hemoglobin 30.4 pg (28.0-33.3); Mean Corpuscular Volume 94.7 fL (83.0-100.0); Mean Platelet Volume 10.4 fL (9.4-12.4); Monocytes # 0.2 K/mcL (0.0-1.3); Monocytes % 4.6 %; Neutrophils # 2.9 K/mcL (1.6-8.9); Platelet Count 140 K/mcL (140-400); Red Blood Count 3.95 M/mcL (3.82-4.97); Red Cell Distribution Width 13.7 % (11.5-14.5); Segmented Neutrophils % 64.8 %
[2017-10-11 04:29] LABS: BUN/Creatinine Ratio 12 (6-26); Blood Urea Nitrogen 11 mg/dL (8-23); Calcium 8.8 mg/dL (8.6-10.3); Carbon Dioxide 29 mEq/L (23-29); Chloride 100 mEq/L (98-107); Glucose 110 mg/dL (70-105); Osmolality,Calculated 280 (280-300); Potassium 3.5 mEq/L (3.5-5.1); Sodium 135 mEq/L (136-145); eGFR For African Americans > 60 (> 60); eGFR For Non-African Americans 58 (> 60)
--- NOTE | 2017-10-11 04:32 | Internal Med History&Physical ---
Date of Encounter: 10/11/17 Time of Encounter: 03:15 Assessment and Plan (1) Syncope Current visit: Yes Status: Acute Patient with acute syncopal episode. Could be orthostatic due to low blood pressure. Now improved. We will place in hospital for observation under telemetry. Check orthostatic blood pressure. Carotid Dopplers and 2-D echocardiogram. Moderate risk for complications. Qualifiers: Syncope type: unspecified Qualified Code(s): R55 - Syncope and collapse (2) Hypotension Current visit: Yes Status: Acute Improved. Continue Midodrine and Florinef. Qualifiers: Hypotension type: orthostatic hypotension Qualified Code(s): I95.1 - Orthostatic hypotension (3) DVT prophylaxis Current visit: Yes Status: Acute With subcutaneous heparin Internal Medicine - H&P: HPI Chief complaint: Syncope Admitted From: Emergency Dept Plans for Post Hospital Care: Home History of present illness: Ms. Loera is a 72 year old female patient with history of hypertension, hyperlipidemia, prior CVA, peripheral artery disease, carotid stenosis status post carotid endarterectomy presented to the ER with complaints of syncopal episode. This happened while she went to go to the bathroom and the next thing she remembers is EMS to her house. She lives with her daughter and niece and the apparently found her unconscious. It is unclear how long she was unconscious. She was found to be hypotensive when EMS initially checked on her. She was then brought into the ER. Patient does appear to have history of orthostatic hypotension and is on Midodrine and Florinef at home. She reports that she is compliant with these medications. Denies any chest pain or palpitations. Denies any nausea or vomiting. She did not have any prodromal symptoms. No fever or chills. No diarrhea. She now feels that she is back to her baseline. Past Med Surg Social Fam HX - Past Medical History Attestation: Yes The following information was validated with the patient. Source: patient, old records reviewed Medical history: arthritis, CVA, hyperlipidemia, hypertension, migraine, peripheral artery disease, TIA Psychiatric history: anxiety, depression - Past Surgical History Surgical History: carotid endarterectomy, cholecystectomy, other, vascular surgery, LE vascular intervention - Social History Smoking Status: Current every day smoker Smokeless Tobacco Status: No Alcohol use: rarely Drug use: none - Family History Father Adopted: No Family Member Ethnicity: Non- Living Status: Hx Family Cardiac Disorders: Yes ( from heart attack) Hx Family Musculoskeletal Disorders: Yes (curve spine) Mother Living Status: Hx Family Cardiac Disorders: Yes Hx Family Cancer: Yes (colon cancer) Hx Family Endocrine Disorder: Yes (dm) Internal Medicine - H&P: Meds Ascorbate Calcium [Vitamin C] 500 mg PO DAILY 10/11/17 [History] Aspirin [Lo-Dose Aspirin EC] 81 mg PO QID 10/11/17 [History] Cholecalciferol (Vitamin D3) [Vitamin D] 1,000 unit PO DAILY 10/11/17 [History] Clopidogrel [Plavix] 75 mg PO DAILY 10/11/17 [History] Cyanocobalamin (Vitamin B-12) [Vitamin B12] 1,000 mcg PO DAILY 10/11/17 [History ] DULoxetine [Cymbalta] 30 mg PO BID 10/11/17 [History] Docusate Sodium [Colace] 100 mg PO DAILY 10/11/17 [History] Fludrocortisone Acetate [Florinef] 0.1 mg PO DAILY 10/11/17 [History] Gabapentin [Neurontin] 600 mg PO TID 10/11/17 [History] HYDROcodone/Acet 5/325 mg [[place] 5-325 mg] 1 tab PO BID PRN 10/11/17 [History] Magnesium Oxide [Magnesium] 400 mg PO DAILY 10/11/17 [History] Midodrine [ProAmatine] 5 mg PO 0800,1200,1700 10/11/17 [History] Potassium Chloride [Klor-Con Sprinkle] 10 meq PO BID 10/11/17 [History] Simvastatin [Zocor] 20 mg PO HS 10/11/17 [History] Vit C/E/Zn/Coppr/Lutein/Zeaxan [Preservision Areds 2 Softgel] 1 cap PO DAILY 05/21 [History] clonazePAM [Clonazepam] 0.5 mg PO DAILY 10/11/17 [History] 3 Allergy/AdvReac Type Severity Reaction Status Date / Time Sulfa (Sulfonamide Allergy Rash Verified 10/15/16 11:36 Antibiotics) All Systems PM: A 10-system review of systems was performed and is negative for pertinent findings except as documented above in the HPI. - Constitutional Constitutional: no chills, no fever(s), no night sweats - EENT Eyes: no change in vision, no discharge, no pain, no photophobia Ears: no ear discharge, no ear pain, no tinnitus Nose, mouth and throat: no dysphagia, no nasal discharge, no neck pain, no sore throat - Cardiovascular Cardiovascular ROS IM: no chest pain, no diaphoresis, no dyspnea, no lightheadedness, no palpitations, no syncope - Respiratory Respiratory: no cough, no dyspnea, no wheezing, no excessive phlegm production - Gastrointestinal Gastrointestinal: no abdominal pain, no diarrhea, no hematemesis, no hematochezia, no melena, no nausea, no vomiting - Genitourinary Genitourinary: no change in urinary stream, no dysuria, no flank pain, no hematuria - Musculoskeletal Musculoskeletal ROS IM: no numbness, no tingling - Integumentary Integumentary IM: no rash, no unusual bruising - Neurological Neurological ROS: no confusion, no convulsions, no focal weakness, no numbness, no tingling, no tremor(s) - Hematologic/Lymphatic Hematologic/Lymphatic: no easy bruising - Constitutional Vitals: Temp Pulse Resp BP Pulse Ox 97.9 F 70 16 117/82 93 10/11/17 03:55 10/11/17 03:55 10/11/17 03:55 10/11/17 03:55 10/11/17 03:55 General appearance: Present: cooperative, A&O X 3, pleasant, no acute distress, answers questions appropriately - Neck Neck exam general surgery: Present: supple, trachea midline. Absent: lymphadenopathy - Respiratory Respiratory exam: Present: CTAB. Absent: accessory muscle use, rales, rhonchi, wheezes - Cardiovascular Cardiovascular exam: Present: RRR, +S1, +S2. Absent: diastolic murmur, gallop, rubs, systolic murmur - GI/Abdominal GI/Abdominal exam: Present: normal bowel sounds, soft, no peritoneal signs. Absent: distended, tenderness - Extremities Exam Extremities exam: Present: warm, radial pulses palpable and symmetrical. Absent : calf tenderness, cyanotic, pedal edema - Neurological Exam Neurological exam: Present: alert, CN II-XII intact, oriented X3, no focal deficits. Absent: facial droop, speech deficit - Skin Skin exam: Present: dry, intact Internal Med - H&P Results - Labs CBC & Chem 7: 10/11/17 03:32 10/10/17 23:59 Labs: Short CBC 10/11/17 Range/Units 03:32 WBC 4.4 (4.3-11.1) K/mcL Hgb 12.0 (11.5-15.4) g/dL Hct 37.4 (35.3-44.9) % Plt Count 140 (140-400) K/mcL Neutrophils # 2.9 (1.6-8.9) K/mcL - EKG Data -: EKG Interpreted by Myself EKG shows normal: sinus rhythm - EKG Data EKG comments: 10/11/17 04:42 EKG shows normal sinus rhythm with LVH and secondary repolarization abnormality - Impressions Impressions Head CT 10/10/17 23:25 IMPRESSION: Chronic ischemic change as above, similar to prior exam. No evidence of acute intracranial hemorrhage or mass effect. D/ / Ector Mariscal MD / Ector Mariscal MD Interpreting Provider: Ector Mariscal MD Chest X-Ray 10/10/17 23:28 IMPRESSION: 1. No acute cardiopulmonary abnormality. 2. Stable chronic diffuse bilateral reticular opacities suggesting chronic interstitial fibrotic changes. D/ / Abimael Hernandez / Abimael Hernandez Interpreting Provider: Abimael Hernandez
[2017-10-11] MEDS: Gabapentin 300 MG CAPSULE PO SCH ×3 (10:23→20:24)
[2017-10-11] MEDS: Cholecalciferol (D-3) 1,000 UNIT TABLET PO SCH (10:24)
[2017-10-11] MEDS: clonazePAM 0.5 MG TABLET PO SCH (10:24)
[2017-10-11] MEDS: Ascorbic Acid 500 MG TABLET PO SCH (10:24)
[2017-10-11] MEDS: Cyanocobalamin (B-12) 1,000 MCG TABLET PO SCH (10:24)
[2017-10-11] MEDS: Magnesium Oxide 400 MG TABLET PO SCH (10:25)
--- NOTE | 2017-10-11 14:28 | Internal Med Progress Note ---
<Jose J Singh - Last Filed: 10/11/17 17:21> Date of Encounter: 10/11/17 Time of Encounter: 14:26 - Assessment and plan (1) Syncope Current Visit: Yes Status: Resolved Assessment and plan: Potentially orthostatic due to the low systolic pressure per EMS on arrival Patient has a history of syncopal events in which is undergone a full workup and there is no known cause found, it was believed to be due to hypotension/ orthostasis Patient states when the event occurred she was in the restroom she is unsure if it was after she had just gone to the restroom. States she does not remember exactly what happened. Plan: - Carotid Dopplers and 2-D echocardiogram ordered - Patient doing well most likely discharged tomorrow Qualifiers: Syncope type: unspecified Qualified Code(s): R55 - Syncope and collapse (2) Hypotension Current Visit: No Status: Chronic Assessment and plan: This has resolved. Patient was receiving fluids and these were stopped. Qualifiers: Hypotension type: unspecified hypotension type Qualified Code(s): I95.9 - Hypotension, unspecified (3) DVT prophylaxis Current Visit: Yes Status: Acute Assessment and plan: Subcutaneous heparin - Subjective Interval history: Patient is a 72-year-old female with significant past medical history of arthritis, CVA, hyperlipidemia, hypertension, migraine, peripheral artery disease, TIA and multiple syncopal episodes in the past who is admitted from the emergency department for syncopal episode. Patient states that she was going to the bathroom and that is the last thing that she remembers prior to having a syncopal event. Per EMS patients blood pressure on arrival was 66 systolic. CBC and metabolic panel were unremarkable in the emergency department. Troponin was negative. No ischemic changes seen on EKG. No acute cardiopulmonary abnormality seen on x-ray. Head CT showed no evidence of acute intracranial hemorrhage or mass effect. At this time the patient has no complaints she states that she feels well. She denies any pain or injuries. 10 system review of ROS is negative except for as stated in the history of present illness. - Constitutional Vitals: Temp Pulse Resp BP Pulse Ox 97.3 F L 76 16 132/87 95 10/11/17 11:45 10/11/17 11:45 10/11/17 11:45 10/11/17 11:45 10/11/17 11:45 General appearance: Present: cooperative, A&O X 3, pleasant, no acute distress, answers questions appropriately Exam: Patient is in no acute distress at this time. She is sitting up in bed in eating or Jell-O. - Head Head exam: Present: atraumatic, normal inspection - Eye Eye exam: Present: normal appearance, PERRL - Neck Neck exam general surgery: Present: normal inspection - Respiratory Respiratory exam: Present: CTAB. Absent: respiratory distress, rhonchi, wheezes , tachypnea - Cardiovascular Cardiovascular exam: Present: RRR, +S1, +S2 - GI/Abdominal GI/Abdominal exam: Present: normal bowel sounds, soft, no peritoneal signs. Absent: tenderness - Extremities Exam Extremities exam: Present: normal capillary refill, normal inspection, warm. Absent: pedal edema - Back Exam Back exam: Present: normal inspection - Neurological Exam Neurological exam: Present: alert, oriented X3, no focal deficits - Psychiatric Psychiatric exam: Present: normal affect, normal mood - Skin Skin exam: Present: intact, normal color, warm. Absent: rash Internal Medicine: Result - Labs CBC & Chem 7: 10/11/17 03:32 10/11/17 03:32 Labs: Short CBC 10/11/17 Range/Units 03:32 WBC 4.4 (4.3-11.1) K/mcL Hgb 12.0 (11.5-15.4) g/dL Hct 37.4 (35.3-44.9) % Plt Count 140 (140-400) K/mcL Neutrophils # 2.9 (1.6-8.9) K/mcL BMP 10/11/17 03:32 Sodium 135 L Potassium 3.5 Chloride 100 Carbon Dioxide 29 BUN 11 Creatinine 0.94 Glucose 110 H Calcium 8.8 Cardiac Enzymes 10/11/17 Range/Units 03:32 Troponin I < 0.03 (< 0.04) ng/mL Consult Discharge Plan - Plan Referrals: Emmett Perez MD [Primary Care Provider] - <Jean Carlos Rader - Last Filed: 10/11/17 17:40> Date of Encounter: 10/11/17 - Constitutional Vitals: Temp Pulse Resp BP Pulse Ox 98.6 F 70 14 113/74 93 10/11/17 15:41 10/11/17 15:41 10/11/17 15:41 10/11/17 15:41 10/11/17 15:41 Internal Medicine: Result - Labs CBC & Chem 7: 10/11/17 03:32 10/11/17 03:32 Labs: Short CBC 10/11/17 Range/Units 03:32 WBC 4.4 (4.3-11.1) K/mcL Hgb 12.0 (11.5-15.4) g/dL Hct 37.4 (35.3-44.9) % Plt Count 140 (140-400) K/mcL Neutrophils # 2.9 (1.6-8.9) K/mcL BMP 10/11/17 03:32 Sodium 135 L Potassium 3.5 Chloride 100 Carbon Dioxide 29 BUN 11 Creatinine 0.94 Glucose 110 H Calcium 8.8 Cardiac Enzymes 10/11/17 Range/Units 03:32 Troponin I < 0.03 (< 0.04) ng/mL - Attending Attestation I examined this patient and my medical decision-making was reviewed with the Resident Physician. I agree with the documented findings, disposition and treatment plan as described except to the extent set forth below.
[2017-10-11] MEDS: Aspirin Enteric Coated 81 MG Tablet PO SCH ×3 (16:33→20:24)
[2017-10-11] MEDS: *HR* Heparin 5,000 UNIT/ML VIAL SQ SCH (17:57)
[2017-10-11] MEDS: *HR* HYDROcodone/Acet 5/325 mg TABLET PO PRN (20:32)
[2017-10-12 04:15] LABS: BUN/Creatinine Ratio 13 (6-26); Blood Urea Nitrogen 11 mg/dL (8-23); Calcium 9.1 mg/dL (8.6-10.3); Carbon Dioxide 30 mEq/L (23-29); Chloride 101 mEq/L (98-107); Glucose 89 mg/dL (70-105); Osmolality,Calculated 283 (280-300); Potassium 3.5 mEq/L (3.5-5.1); Sodium 137 mEq/L (136-145); eGFR For African Americans > 60 (> 60); eGFR For Non-African Americans > 60 (> 60)
[2017-10-12] MEDS: *HR* Heparin 5,000 UNIT/ML VIAL SQ SCH (06:11)
[2017-10-12] MEDS: Cholecalciferol (D-3) 1,000 UNIT TABLET PO SCH (08:25)
[2017-10-12] MEDS: Cyanocobalamin (B-12) 1,000 MCG TABLET PO SCH (08:25)
[2017-10-12] MEDS: Ascorbic Acid 500 MG TABLET PO SCH (08:25)
[2017-10-12] MEDS: Gabapentin 300 MG CAPSULE PO SCH ×2 (08:25→15:27)
[2017-10-12] MEDS: clonazePAM 0.5 MG TABLET PO SCH (08:25)
[2017-10-12] MEDS: Magnesium Oxide 400 MG TABLET PO SCH (08:25)
[2017-10-12] MEDS: Aspirin Enteric Coated 81 MG Tablet PO SCH ×2 (08:25→11:49)
[2017-10-12] MEDS: *HR* HYDROcodone/Acet 5/325 mg TABLET PO PRN (10:50)
--- NOTE | 2017-10-12 13:21 | Discharge Summary ---
<Jose J Singh - Last Filed: 10/12/17 15:07> - NOTES TO OUTPATIENT PROVIDER Notes to Outpatient Provider: Patient was seen for syncopal event. Cardiac workup performed in the hospital did not show obvious etiology of patient's syncopal event. Patient was hypotensive on arrival and BP improved with fluids. Carotid doppler US and echocardiogram done in the hospital. Date of Encounter: 10/12/17 Time of Encounter: 13:18 - Discharge Diagnosis (1) Syncope Priority: Primary Status: Resolved Qualifiers: Syncope type: unspecified Qualified Code(s): R55 - Syncope and collapse (2) Hypotension Priority: Primary Status: Chronic Qualifiers: Hypotension type: unspecified hypotension type Qualified Code(s): I95.9 - Hypotension, unspecified (3) DVT prophylaxis Priority: Secondary Status: Acute Hospital course: Ms. Loera is a 72 year old female with a past medical history of arthritis, CVA , HLD, HTN, PAD, TIA and multiple syncopal pull episodes admitted to the emergency department for a syncopal episode. Patient was found to be hypotensive per EMS. Labs have been unremarkable. Cardiac workup in the ED including EKG, chest x-ray and troponin was negative. Head CT was negative. Patient received IV fluid hydration which improved her blood pressure to slightly above normal. She had an echocardiogram done which showed EF of 50-55% , LVH, diastolic dysfunction with elevated filling pressures, mild regurgitation of mitral and tricuspid valves and mild pulmonary hypertension. Patient also had a carotid Doppler ultrasound performed. Throughout the patient 's stay she had no complaints or concerns for any recent signs of infection or any pain or injury from her fall. She states that she would like to go back home. Patient will require follow-up with her primary care provider early next week. Discharge discussed with: patient Time spent discussing smoking cessation with patient: 3 to 10 minutes - Time Spent with Patient Total time spent providing and/or coordinating discharge services: - Discharge Medications Home Medications: Ascorbate Calcium [Vitamin C] 500 mg PO DAILY 10/11/17 [History] Aspirin [Lo-Dose Aspirin EC] 81 mg PO QID 10/11/17 [History] Cholecalciferol (Vitamin D3) [Vitamin D3] 1,000 unit PO DAILY 10/11/17 [History] Clopidogrel [Plavix] 75 mg PO DAILY 10/11/17 [History] Cyanocobalamin (Vitamin B-12) [Vitamin B12] 1,000 mcg PO DAILY 10/11/17 [History ] DULoxetine [Cymbalta] 30 mg PO BID 10/11/17 [History] Docusate Sodium [Colace] 100 mg PO DAILY 10/11/17 [History] Fludrocortisone Acetate [Florinef] 0.1 mg PO DAILY 10/11/17 [History] Gabapentin [Neurontin] 600 mg PO TID 10/11/17 [History] HYDROcodone/Acet 5/325 mg [[place] 5-325 mg] 1 tab PO BID PRN 10/11/17 [History] Magnesium Oxide [Magnesium] 400 mg PO DAILY 10/11/17 [History] Midodrine [ProAmatine] 5 mg PO 0800,1200,1700 10/11/17 [History] Mirtazapine [Remeron] 15 mg PO HS 10/11/17 [History] PARoxetine HCl [Paroxetine HCl] 10 mg PO DAILY 10/11/17 [History] Potassium Chloride [Klor-Con Sprinkle] 10 meq PO BID 10/11/17 [History] Simvastatin [Zocor] 20 mg PO HS 10/11/17 [History] Vit C/E/Zn/Coppr/Lutein/Zeaxan [Preservision Areds 2 Softgel] 1 cap PO DAILY 05/21 [History] clonazePAM [Clonazepam] 0.5 mg PO DAILY 10/11/17 [History] Midodrine [ProAmatine] 5 mg PO TID 10/12/17 [History] Nystatin [Nystatin Suspension] 1 each PO BID 10/12/17 [History] Allergies/Adverse Reactions: 3 Allergy/AdvReac Type Severity Reaction Status Date / Time Sulfa (Sulfonamide Allergy Rash Verified 10/11/17 15:09 Antibiotics) Date of admission: 10/11/17 02:01 Primary care physician: Emmett Perez MD Discharging clinician: Jean Carlos Rader Anticipated date of discharge: 10/12/17 - Constitutional Vitals: Temp Pulse Resp BP Pulse Ox 98.6 F 74 14 123/80 94 10/12/17 11:20 10/12/17 11:20 10/12/17 11:20 10/12/17 11:20 10/12/17 11:20 General appearance: Present: cooperative, A&O X 3, pleasant, no acute distress, answers questions appropriately Exam: Patient is pleasant she is sitting up in bed watching TV. - Head Head exam: Present: atraumatic, normal inspection, normocephalic - Eye Eye exam: Present: normal appearance, PERRL - Neck Neck exam general surgery: Present: normal inspection - Respiratory Respiratory exam: Present: CTAB. Absent: respiratory distress, rhonchi, wheezes - Cardiovascular Cardiovascular exam: Present: RRR, +S1, +S2 - GI/Abdominal GI/Abdominal exam: Present: normal bowel sounds, soft, no peritoneal signs. Absent: tenderness - Extremities Exam Extremities exam: Present: normal inspection, warm. Absent: pedal edema - Back Exam Back exam: Present: normal inspection - Neurological Exam Neurological exam: Present: alert, oriented X3, no focal deficits - Psychiatric Psychiatric exam: Present: normal affect, normal mood - Skin Skin exam: Present: intact, normal color, warm - Patient Status Disposition: Transfer LTC Condition: Good Functional capacity at discharge: independent ambulation Overall status at discharge: patient is back to baseline - Discharge Instructions Instructions: Syncope (DC), Hypotension (DC) Follow Up With: Emmett Perez MD [Primary Care Provider] - Additional Instructions: 1. Follow-up with your primary care provider Dr. Christine early next week, in 2-3 days. 2. If at any time you experience any worsening or concerning symptoms such as headache, vision changes, lightheadedness, weakness, chest pain, shortness of breath, nausea, vomiting, abdominal pain, diarrhea or any other concerning signs or symptoms return to the nearest emergency department for further evaluation and treatment. - Diet and Activity Activity: increase activity as tolerated Diet: advance to your usual diet <Jean Carlos Rader - Last Filed: 10/12/17 18:35> Orders not resulted at time of discharge: Pending orders 10/12/17 18:21 CT angio chest [CT] Routine Date of Encounter: 10/12/17 Hospital course: Ms. Loera is a 72 year old female - Time Spent with Patient Total time spent providing and/or coordinating discharge services: Date of admission: 10/11/17 02:01 Primary care physician: Emmett Perez MD - Constitutional Vitals: Temp Pulse Resp BP Pulse Ox 98.6 F 74 14 123/80 94 10/12/17 11:20 10/12/17 11:20 10/12/17 11:20 10/12/17 11:20 10/12/17 11:20 - Attending Attestation I examined this patient and my medical decision-making was reviewed with the Resident Physician. I agree with the documented findings, disposition and treatment plan as described except to the extent set forth below. She may have Sublcavian stenosis on Doppler, and with some Carotid disease as well, need to exclude Subclavian Steal Syndrome.. CTA on 10/13
--- NOTE | 2017-10-12 18:20 | Event Note ---
Date of Encounter: 10/12/17 Time of Encounter: 18:19 Given the possible subclavian stenosis, will check CTA of chest.. DC most likely on 10/13; May require Vascular surgery eval. Does have sign. stenosis on the R Carotiid as well.
[2017-10-13 15:13] VITALS: BP 143/69
--- NOTE | 2017-10-13 19:15 | Electrocardiograph Report ---
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
== END 2017-10-12 15:38 ==
LOC: 2ANU 23:09 → EMEROO 23:09 → 2ANU 10-11 02:00
PROVIDERS: ADMIT Internal Medicine; ATTEND Internal Medicine

== ENCOUNTER 2019-06-13 21:39 | Inpatient (IN) ==
[2019-06-13 22:38] LABS: Basophils % 0.3 %; Hematocrit 36.1 % (35.3-44.9); Hemoglobin 11.9 g/dL (11.5-15.4); Lymphocytes # 0.6 K/mcL (0.6-4.6); Lymphocytes % 7.8 %; Mean Corpuscular Hemoglobin 30.3 pg (28.0-33.3); Mean Corpuscular Volume 91.9 fL (83.0-100.0); Mean Platelet Volume 11.1 fL (9.4-12.4); Monocytes # 0.4 K/mcL (0.0-1.3); Monocytes % 5.1 %; Neutrophils # 6.7 K/mcL (1.6-8.9); Platelet Count 155 K/mcL (140-400); Red Blood Count 3.93 M/mcL (3.82-4.97); Red Cell Distribution Width 13.9 % (11.5-14.5); Segmented Neutrophils % 85.8 %; White Blood Count 7.8 K/mcL (4.3-11.1)
[2019-06-13 22:40] LABS: Bilirubin,Urine Negative (Negative); Blood,Urine Large (Negative); Clarity,Urine Turbid (Clear); Color,Urine Yellow (Yellow); Glucose,Urine (UA) Normal (Normal); Ketones,Urine Negative (Negative); Leukocyte Esterase,Urine Large (Negative); Nitrite,Urine Negative (Negative); PH,Urine 5.5 pH Units (5.0-8.0); Protein,Urine >=300 mg/dL (Neg-Trace); Specific Gravity,Urine 1.016 (1.010-1.025); Urobilinogen,Urine Normal (Normal)
[2019-06-13 22:43] LABS: Bacteria,Urine Many per hpf (None-Few); Squamous Epithelial Cell,Urine Many per lpf (None-Few); WBC,Urine TNTC per hpf (0-3)
[2019-06-13 22:53] LABS: RBC,Urine TNTC per hpf (0-3)
[2019-06-13 23:00] LABS: Albumin 3.5 g/dL (3.5-5.7); Albumin/Globulin Ratio 0.9 (1.1-2.2); Bilirubin,Total 0.5 mg/dL (0.3-1.0); Calcium 8.8 mg/dL (8.6-10.3); Globulin 3.9 g/dL (2.4-3.5); Magnesium 1.9 mg/dL (1.6-2.6); Potassium 4.3 mEq/L (3.5-5.1); Total Protein 7.4 g/dL (6.4-8.9)
[2019-06-13 23:19] LABS: Thyroid Stimulating Hormone 4.934 mcIU/mL (0.340-5.600); Troponin I 1.04 ng/mL (< 0.04)
[2019-06-13] MEDS ORDERED: 0.9 % Sodium Chloride 500 ML IVC ONE (23:21)
[2019-06-13] MEDS ORDERED: Aspirin 81 MG TAB.CHEW PO ONE (23:39)
[2019-06-14] MEDS ORDERED: 0.9 % Sodium Chloride 1,000 ML ONE (00:25)
[2019-06-14] MEDS ORDERED: 0.9 % Sodium Chloride 1,000 ML IVC ONE ×2 (00:40→02:23)
[2019-06-14] MEDS ORDERED: Ipratropium/Albuterol Neb 3 ML IH PRN (02:19)
[2019-06-14] MEDS ORDERED: Saliva Stimulant 100ml BOTTLE PO PRN (02:19)
[2019-06-14 05:09] LABS: Troponin I 0.59 ng/mL (< 0.04)
[2019-06-14] MEDS ORDERED: Gabapentin 400 MG CAPSULE PO SCH (09:00)
[2019-06-14] MEDS: Gabapentin 100 MG CAPSULE PO SCH ×3 (09:28→20:39)
[2019-06-14] MEDS: cefTRIAXone 1,000 MG in Water for inj. (sterile) 10 ML IVPB SCH (09:28)
[2019-06-14] MEDS: Cyanocobalamin (B-12) 1,000 MCG TABLET PO SCH (09:28)
[2019-06-14] MEDS: Acetaminophen 325 MG TABLET PO PRN ×3 (09:29→23:41)
[2019-06-14] MEDS: Metoprolol XL (24 HR) Succ 25 MG TAB.ER.24H PO SCH (09:29)
[2019-06-14] MEDS: Apixaban 2.5 MG TABLET PO SCH ×2 (09:29→20:39)
[2019-06-14] MEDS: Aspirin Enteric Coated 81 MG Tablet PO SCH (09:29)
[2019-06-14] MEDS: Cholecalciferol (D-3) 1,000 UNIT (25MCG) TABLET PO SCH (09:29)
[2019-06-14 11:10] LABS: Calcium 8.2 mg/dL (8.6-10.3); Potassium 4.6 mEq/L (3.5-5.1)
[2019-06-14 11:14] LABS: Troponin I 0.56 ng/mL (< 0.04)
[2019-06-14] MEDS: Nicotine 21 MG PATCH.TD24 TD SCH (12:17)
[2019-06-14] MEDS: traMADol 50 MG TABLET PO PRN ×2 (13:15→16:24)
[2019-06-14] MEDS: Mirtazapine 15 MG TABLET PO SCH (20:40)
[2019-06-15] MEDS ORDERED: 0.9 % Sodium Chloride 500 ML IVC ONE (03:02)
[2019-06-15 06:11] LABS: Hematocrit 35.6 % (35.3-44.9); Hemoglobin 11.5 g/dL (11.5-15.4); Mean Corpuscular HGB Conc 32.3 g/dL (31.6-35.5); Mean Corpuscular Hemoglobin 30.4 pg (28.0-33.3); Mean Corpuscular Volume 94.2 fL (83.0-100.0); Mean Platelet Volume 11.3 fL (9.4-12.4); Platelet Count 138 K/mcL (140-400); Red Blood Count 3.78 M/mcL (3.82-4.97); Red Cell Distribution Width 14.3 % (11.5-14.5); White Blood Count 10.6 K/mcL (4.3-11.1)
[2019-06-15 06:36] LABS: Albumin 3.3 g/dL (3.5-5.7); Calcium 8.5 mg/dL (8.6-10.3); Potassium 4.8 mEq/L (3.5-5.1)
[2019-06-15] MEDS: Metoprolol XL (24 HR) Succ 25 MG TAB.ER.24H PO SCH (08:30)
[2019-06-15] MEDS: Apixaban 2.5 MG TABLET PO SCH ×2 (08:31→21:42)
[2019-06-15] MEDS: Cholecalciferol (D-3) 1,000 UNIT (25MCG) TABLET PO SCH (08:31)
[2019-06-15] MEDS: Gabapentin 100 MG CAPSULE PO SCH ×3 (08:32→21:42)
[2019-06-15] MEDS: Nicotine 21 MG PATCH.TD24 TD SCH (08:32)
[2019-06-15] MEDS: Acetaminophen 325 MG TABLET PO PRN (08:32)
[2019-06-15] MEDS: Cyanocobalamin (B-12) 1,000 MCG TABLET PO SCH (08:32)
[2019-06-15] MEDS: Aspirin Enteric Coated 81 MG Tablet PO SCH (08:32)
[2019-06-15] MEDS: cefTRIAXone 1,000 MG in Water for inj. (sterile) 10 ML IVPB SCH (08:33)
[2019-06-15] MEDS ORDERED: Azithromycin 250 MG TABLET PO ONE (09:05)
[2019-06-15] MEDS: Hydrocortisone Sodium Succ 100 MG/2 ML VIAL IVP SCH ×2 (09:40→15:28)
[2019-06-15] MEDS: 0.9 % Sodium Chloride 1,000 ML IVC SCH (09:40)
[2019-06-15] MEDS ORDERED: Acetaminophen 325 MG TABLET PO PRN (14:00)
[2019-06-15] MEDS: Mirtazapine 15 MG TABLET PO SCH (21:42)
[2019-06-16] MEDS: Hydrocortisone Sodium Succ 100 MG/2 ML VIAL IVP SCH ×3 (00:38→16:47)
[2019-06-16 04:45] LABS: Hematocrit 30.2 % (35.3-44.9); Mean Corpuscular HGB Conc 33.1 g/dL (31.6-35.5); Mean Corpuscular Hemoglobin 30.1 pg (28.0-33.3); Mean Platelet Volume 11.4 fL (9.4-12.4); Platelet Count 125 K/mcL (140-400); Red Blood Count 3.32 M/mcL (3.82-4.97); Red Cell Distribution Width 14.1 % (11.5-14.5); White Blood Count 8.2 K/mcL (4.3-11.1)
[2019-06-16 05:03] LABS: Calcium 8.1 mg/dL (8.6-10.3); Potassium 4.3 mEq/L (3.5-5.1)
[2019-06-16] MEDS: 0.9 % Sodium Chloride 1,000 ML IVC SCH (06:16)
[2019-06-16] MEDS: Gabapentin 100 MG CAPSULE PO SCH ×3 (08:22→22:14)
[2019-06-16] MEDS: Azithromycin 250 MG TABLET PO SCH (08:22)
[2019-06-16] MEDS: Cholecalciferol (D-3) 1,000 UNIT (25MCG) TABLET PO SCH (08:22)
[2019-06-16] MEDS: Apixaban 2.5 MG TABLET PO SCH ×2 (08:23→22:14)
[2019-06-16] MEDS: Metoprolol XL (24 HR) Succ 25 MG TAB.ER.24H PO SCH (08:23)
[2019-06-16] MEDS: Aspirin Enteric Coated 81 MG Tablet PO SCH (08:24)
[2019-06-16] MEDS: Nicotine 21 MG PATCH.TD24 TD SCH (08:25)
[2019-06-16] MEDS: Cyanocobalamin (B-12) 1,000 MCG TABLET PO SCH (08:25)
[2019-06-16] MEDS: traMADol 50 MG TABLET PO PRN (16:55)
[2019-06-16] MEDS: Mirtazapine 15 MG TABLET PO SCH (22:14)
[2019-06-16] MEDS ORDERED: Melatonin 3 MG TABLET PO ONE (23:05)
[2019-06-17] MEDS: Hydrocortisone Sodium Succ 100 MG/2 ML VIAL IVP SCH (00:03)
[2019-06-17 06:21] LABS: Basophils % 0.1 %; Hemoglobin 10.5 g/dL (11.5-15.4); Immature Granulocytes % 0.4 % (0-4); Lymphocytes # 0.5 K/mcL (0.6-4.6); Lymphocytes % 7.7 %; Mean Corpuscular HGB Conc 31.8 g/dL (31.6-35.5); Mean Corpuscular Hemoglobin 29.6 pg (28.0-33.3); Mean Platelet Volume 11.5 fL (9.4-12.4); Monocytes # 0.2 K/mcL (0.0-1.3); Neutrophils # 6.2 K/mcL (1.6-8.9); Platelet Count 145 K/mcL (140-400); Red Blood Count 3.55 M/mcL (3.82-4.97); Red Cell Distribution Width 14.1 % (11.5-14.5); Segmented Neutrophils % 88.8 %
[2019-06-17 06:40] LABS: Calcium 8.6 mg/dL (8.6-10.3); Potassium 3.8 mEq/L (3.5-5.1)
[2019-06-17] MEDS: Nicotine 21 MG PATCH.TD24 TD SCH (09:52)
[2019-06-17] MEDS: Aspirin Enteric Coated 81 MG Tablet PO SCH (09:55)
[2019-06-17] MEDS: Metoprolol XL (24 HR) Succ 25 MG TAB.ER.24H PO SCH (09:55)
[2019-06-17] MEDS: Cholecalciferol (D-3) 1,000 UNIT (25MCG) TABLET PO SCH (09:55)
[2019-06-17] MEDS: Apixaban 2.5 MG TABLET PO SCH (09:55)
[2019-06-17] MEDS: Cyanocobalamin (B-12) 1,000 MCG TABLET PO SCH (09:55)
[2019-06-17] MEDS: Gabapentin 100 MG CAPSULE PO SCH (09:55)
[2019-06-17] MEDS: traMADol 50 MG TABLET PO PRN (09:56)
[2019-06-17] MEDS: Azithromycin 250 MG TABLET PO SCH (09:56)
[2019-06-17 11:47] VITALS: BP 124/85
== END 2019-06-17 12:14 | DRG 871 ==
LOC: 2ANU 21:39 → EMEROOARM 21:39 → SUATTDRO 23:57 → 2ANU 06-14 01:46
PROVIDERS: ADMIT Internal Medicine; ATTEND Family Medicine

== ENCOUNTER 2019-11-13 14:59 | Inpatient (IN) ==
[2019-11-13 15:51] LABS: Basophils % 0.4 %; Eosinophils # 0.2 K/mcL (0.0-0.6); Eosinophils % 3.4 %; Hematocrit 31.5 % (35.3-44.9); Hemoglobin 9.8 g/dL (11.5-15.4); Immature Granulocytes % 0.3 % (0-4); Lymphocytes # 1.2 K/mcL (0.6-4.6); Lymphocytes % 17.2 %; Mean Corpuscular HGB Conc 31.1 g/dL (31.6-35.5); Mean Corpuscular Hemoglobin 29.1 pg (28.0-33.3); Mean Corpuscular Volume 93.5 fL (83.0-100.0); Mean Platelet Volume 10.2 fL (9.4-12.4); Monocytes # 0.6 K/mcL (0.0-1.3); Monocytes % 9.1 %; Neutrophils # 4.7 K/mcL (1.6-8.9); Platelet Count 275 K/mcL (140-400); Red Blood Count 3.37 M/mcL (3.82-4.97); Red Cell Distribution Width 14.6 % (11.5-14.5); Segmented Neutrophils % 69.6 %; White Blood Count 6.7 K/mcL (4.3-11.1)
[2019-11-13 16:03] LABS: INR 1.8; Prothrombin Time 20.6 Seconds (9.4-12.1)
[2019-11-13 16:06] LABS: Activated Partial Thrombo Time 33.2 Seconds (26.0-36.0)
[2019-11-13 16:10] LABS: Calcium 8.9 mg/dL (8.6-10.3); Potassium 5.2 mEq/L (3.5-5.1)
[2019-11-13 16:11] LABS: Troponin I 0.03 ng/mL (< 0.04)
[2019-11-13 17:09] LABS: Bilirubin,Urine Negative (Negative); Blood,Urine Large (Negative); Clarity,Urine Cloudy (Clear); Glucose,Urine (UA) Normal (Normal); Ketones,Urine Negative (Negative); Leukocyte Esterase,Urine Moderate (Negative); Nitrite,Urine Negative (Negative); Protein,Urine >=300 mg/dL (Neg-Trace); Specific Gravity,Urine 1.015 (1.010-1.025); Urobilinogen,Urine Normal (Normal)
[2019-11-13 17:10] LABS: Color,Urine Red (Yellow)
[2019-11-13] MEDS ORDERED: Naloxone 0.4 MG/ML INJ IVP PRN (17:14)
[2019-11-13] MEDS ORDERED: Ondansetron 4 MG/2 ML VIAL IVP PRN (17:14)
[2019-11-13] MEDS ORDERED: 0.9 % Sodium Chloride w KCl 20 MEQ/1,000 ML MLS IVC SCH (17:15)
[2019-11-13] MEDS: cefTRIAXone 1,000 MG in Water for inj. (sterile) 10 ML IVP SCH (18:56)
[2019-11-13] MEDS: 0.9 % Sodium Chloride 1,000 ML IVC SCH (18:57)
[2019-11-13] MEDS ORDERED: Mirtazapine 15 MG TABLET PO SCH (21:00)
[2019-11-14 00:23] LABS: Hematocrit 29.6 % (35.3-44.9); Hemoglobin 9.3 g/dL (11.5-15.4)
[2019-11-14] MEDS ORDERED: Albumin 25% 25gram/100mL 25 GM/100 ML IV.SOLN IVPB ONE (00:45)
[2019-11-14] MEDS ORDERED: Albumin 25% 25gram/100mL 25 GM/100 ML IV.SOLN ONE (00:50)
[2019-11-14] MEDS: Albumin 25% 25gram/100mL 25 GM/100 ML IV.SOLN IVPB ONE ×2 (00:50→01:50)
[2019-11-14] MEDS ORDERED: Hydrocortisone Sodium Succ 100 MG/2 ML VIAL IVP ONE (01:30)
[2019-11-14] MEDS ORDERED: 0.9 % Sodium Chloride 1,000 ML IVC ONE (01:33)
[2019-11-14 01:56] LABS: Hematocrit 28.8 % (35.3-44.9); Hemoglobin 8.6 g/dL (11.5-15.4)
[2019-11-14] MEDS: 0.9 % Sodium Chloride 1,000 ML IVC SCH ×2 (02:20→10:08)
[2019-11-14 02:36] LABS: Eosinophils % 6.2 %; Mean Corpuscular Hemoglobin 29.2 pg (28.0-33.3); Nucleated Red Blood Cells 0.3 /100 WBC (0); Red Cell Distribution Width 14.5 % (11.5-14.5)
[2019-11-14 02:38] LABS: Basophils % 0.3 %; Eosinophils # 0.4 K/mcL (0.0-0.6); Hematocrit 25.3 % (35.3-44.9); Immature Granulocytes % 0.7 % (0-4); Immature Platelets 2.1 % (1.1-6.1); Lymphocytes # 1.5 K/mcL (0.6-4.6); Mean Corpuscular HGB Conc 31.6 g/dL (31.6-35.5); Mean Corpuscular Volume 92.3 fL (83.0-100.0); Mean Platelet Volume 10.5 fL (9.4-12.4); Monocytes # 0.6 K/mcL (0.0-1.3); Monocytes % 9.9 %; Neutrophils # 3.4 K/mcL (1.6-8.9); Platelet Count 195 K/mcL (140-400); Red Blood Count 2.74 M/mcL (3.82-4.97); Segmented Neutrophils % 57.9 %; White Blood Count 5.8 K/mcL (4.3-11.1)
[2019-11-14 02:51] LABS: Calcium 8.2 mg/dL (8.6-10.3); Magnesium 2.1 mg/dL (1.6-2.6); Phosphorous 4.1 mg/dL (2.7-4.5); Potassium 5.2 mEq/L (3.5-5.1)
[2019-11-14 06:30] LABS: Hematocrit 27.9 % (35.3-44.9); Hemoglobin 8.6 g/dL (11.5-15.4)
[2019-11-14] MEDS ORDERED: Cyanocobalamin (B-12) 1,000 MCG TABLET PO SCH (09:00)
[2019-11-14] MEDS ORDERED: Metoprolol XL (24 HR) Succ 25 MG TAB.ER.24H PO SCH (09:00)
[2019-11-14] MEDS ORDERED: lisinopriL 10 MG TABLET PO SCH (09:00)
[2019-11-14] MEDS ORDERED: Cholecalciferol (D-3) 1,000 UNIT (25MCG) TABLET PO SCH (09:00)
[2019-11-14] MEDS: cefTRIAXone 1,000 MG in Water for inj. (sterile) 10 ML IVP SCH (09:06)
[2019-11-14] MEDS ORDERED: Hydrocortisone Sodium Succ 100 MG/2 ML VIAL IVP SCH (10:00)
[2019-11-14 11:33] LABS: Hematocrit 26.2 % (35.3-44.9); Hemoglobin 8.2 g/dL (11.5-15.4)
[2019-11-14] MEDS ORDERED: Lidocaine -MPF 2% 2 ML VIAL ONE (13:15)
[2019-11-14] MEDS ORDERED: Ondansetron 4 MG/2 ML VIAL ONE (13:15)
[2019-11-14] MEDS ORDERED: *HR* FentaNYL (PF) 100 MCG/2 ML VIAL ONE (13:15)
[2019-11-14] MEDS ORDERED: Dexamethasone 4 MG/ML VIAL ONE (13:15)
[2019-11-14] MEDS ORDERED: *HR* Propofol 200 MG/20 ML VIAL IVP ONE (13:16)
[2019-11-14] MEDS ORDERED: Isovue-300 150 ML INFUS..BTL ONE (13:17)
[2019-11-14] MEDS ORDERED: Ondansetron 4 MG/2 ML VIAL IVP PRN (13:29)
[2019-11-14] MEDS ORDERED: Naloxone 0.4 MG/ML INJ IVP PRN (13:29)
[2019-11-14] MEDS ORDERED: 0.9 % Sodium Chloride 1,000 ML IVC SCH (13:29)
[2019-11-14] MEDS ORDERED: *HR* OxyCODONE Immed Rel 5 MG TABLET PO PRN (14:38)
[2019-11-14] MEDS ORDERED: Ondansetron 4 MG/2 ML VIAL IVP ONE (14:38)
[2019-11-14 17:18] LABS: Hematocrit 29.6 % (35.3-44.9); Hemoglobin 9.4 g/dL (11.5-15.4)
[2019-11-14] MEDS: Hydrocortisone Sodium Succ 100 MG/2 ML VIAL IVP SCH (17:24)
[2019-11-14 20:02] LABS: Hematocrit 28.6 % (35.3-44.9); Hemoglobin 9.1 g/dL (11.5-15.4)
[2019-11-14] MEDS: Mirtazapine 15 MG TABLET PO SCH (21:03)
[2019-11-15 00:57] LABS: Hematocrit 31.9 % (35.3-44.9); Hemoglobin 9.8 g/dL (11.5-15.4)
[2019-11-15 00:58] LABS: Basophils % 0.2 %; Hematocrit 31.4 % (35.3-44.9); Hemoglobin 9.9 g/dL (11.5-15.4); Immature Granulocytes % 0.3 % (0-4); Lymphocytes # 0.8 K/mcL (0.6-4.6); Mean Corpuscular HGB Conc 31.5 g/dL (31.6-35.5); Mean Corpuscular Hemoglobin 29.3 pg (28.0-33.3); Mean Corpuscular Volume 92.9 fL (83.0-100.0); Mean Platelet Volume 9.7 fL (9.4-12.4); Monocytes # 0.2 K/mcL (0.0-1.3); Monocytes % 3.5 %; Neutrophils # 5.2 K/mcL (1.6-8.9); Platelet Count 218 K/mcL (140-400); Red Blood Count 3.38 M/mcL (3.82-4.97); Red Cell Distribution Width 14.4 % (11.5-14.5); White Blood Count 6.2 K/mcL (4.3-11.1)
[2019-11-15 01:29] LABS: Albumin 3.8 g/dL (3.5-5.7); Bilirubin,Total 0.3 mg/dL (0.3-1.0); Calcium 8.4 mg/dL (8.6-10.3); Globulin 3.7 g/dL (2.4-3.5); Magnesium 1.9 mg/dL (1.6-2.6); Phosphorous 3.9 mg/dL (2.7-4.5); Potassium 3.7 mEq/L (3.5-5.1); Total Protein 7.5 g/dL (6.4-8.9)
[2019-11-15] MEDS: Hydrocortisone Sodium Succ 100 MG/2 ML VIAL IVP SCH ×3 (01:33→17:48)
[2019-11-15] MEDS: Cyanocobalamin (B-12) 1,000 MCG TABLET PO SCH (08:51)
[2019-11-15] MEDS: Cholecalciferol (D-3) 1,000 UNIT (25MCG) TABLET PO SCH (08:53)
[2019-11-15 08:58] LABS: Hematocrit 31.9 % (35.3-44.9); Hemoglobin 10.6 g/dL (11.5-15.4)
[2019-11-15] MEDS ORDERED: cefTRIAXone 1,000 MG in Water for inj. (sterile) 10 ML IVP SCH (09:00)
[2019-11-15 15:40] LABS: Hematocrit 35.1 % (35.3-44.9)
[2019-11-15 16:48] LABS: Hematocrit 30.1 % (35.3-44.9); Hemoglobin 9.9 g/dL (11.5-15.4)
[2019-11-15] MEDS: Mirtazapine 15 MG TABLET PO SCH (20:15)
[2019-11-15] MEDS: cephALEXin 250 MG CAPSULE PO SCH (20:15)
[2019-11-16] MEDS: Hydrocortisone Sodium Succ 100 MG/2 ML VIAL IVP SCH ×3 (02:26→17:19)
[2019-11-16 07:17] LABS: Hematocrit 28.6 % (35.3-44.9); Hemoglobin 9.2 g/dL (11.5-15.4); Mean Corpuscular HGB Conc 32.2 g/dL (31.6-35.5); Mean Corpuscular Hemoglobin 28.8 pg (28.0-33.3); Mean Corpuscular Volume 89.4 fL (83.0-100.0); Mean Platelet Volume 10.7 fL (9.4-12.4); Platelet Count 278 K/mcL (140-400); Red Cell Distribution Width 14.2 % (11.5-14.5); White Blood Count 10.8 K/mcL (4.3-11.1)
[2019-11-16] MEDS: Cyanocobalamin (B-12) 1,000 MCG TABLET PO SCH (07:52)
[2019-11-16] MEDS: Cholecalciferol (D-3) 1,000 UNIT (25MCG) TABLET PO SCH (07:52)
[2019-11-16] MEDS: cephALEXin 250 MG CAPSULE PO SCH ×2 (07:52→20:57)
[2019-11-16 08:13] LABS: Calcium 8.4 mg/dL (8.6-10.3); Potassium 3.1 mEq/L (3.5-5.1)
[2019-11-16] MEDS ORDERED: Potassium Chloride 40 MEQ, Lidocaine 1% 2 ML in 0.9 % Sodium Chloride 500 ML IVPB ONE (09:56)
[2019-11-16] MEDS: *HR* HYDROcodone/Acet 5/325 mg TABLET PO PRN (16:05)
[2019-11-16] MEDS: Mirtazapine 15 MG TABLET PO SCH (20:57)
[2019-11-17] MEDS: *HR* HYDROcodone/Acet 5/325 mg TABLET PO PRN ×2 (00:50→16:52)
[2019-11-17] MEDS: Hydrocortisone Sodium Succ 100 MG/2 ML VIAL IVP SCH ×3 (02:53→18:49)
[2019-11-17 02:54] LABS: Hematocrit 29.3 % (35.3-44.9); Hemoglobin 9.5 g/dL (11.5-15.4); Mean Corpuscular HGB Conc 32.4 g/dL (31.6-35.5); Mean Corpuscular Hemoglobin 28.6 pg (28.0-33.3); Mean Corpuscular Volume 88.3 fL (83.0-100.0); Mean Platelet Volume 10.9 fL (9.4-12.4); Platelet Count 236 K/mcL (140-400); Red Blood Count 3.32 M/mcL (3.82-4.97); Red Cell Distribution Width 14.2 % (11.5-14.5); White Blood Count 10.9 K/mcL (4.3-11.1)
[2019-11-17 03:08] LABS: Calcium 8.3 mg/dL (8.6-10.3); Potassium 4.7 mEq/L (3.5-5.1)
[2019-11-17] MEDS: Cholecalciferol (D-3) 1,000 UNIT (25MCG) TABLET PO SCH (08:20)
[2019-11-17] MEDS: cephALEXin 250 MG CAPSULE PO SCH ×2 (08:20→21:37)
[2019-11-17] MEDS: Cyanocobalamin (B-12) 1,000 MCG TABLET PO SCH (08:20)
[2019-11-17] MEDS: Mirtazapine 15 MG TABLET PO SCH (21:27)
[2019-11-18 01:42] LABS: Hematocrit 29.4 % (35.3-44.9); Hemoglobin 9.4 g/dL (11.5-15.4); Mean Corpuscular Hemoglobin 28.5 pg (28.0-33.3); Mean Corpuscular Volume 89.1 fL (83.0-100.0); Mean Platelet Volume 9.9 fL (9.4-12.4); Platelet Count 273 K/mcL (140-400); Red Cell Distribution Width 14.2 % (11.5-14.5); White Blood Count 8.5 K/mcL (4.3-11.1)
[2019-11-18 02:06] LABS: Calcium 8.5 mg/dL (8.6-10.3)
[2019-11-18] MEDS: *HR* HYDROcodone/Acet 5/325 mg TABLET PO PRN (02:58)
[2019-11-18] MEDS: Hydrocortisone Sodium Succ 100 MG/2 ML VIAL IVP SCH (06:08)
[2019-11-18] MEDS: Cholecalciferol (D-3) 1,000 UNIT (25MCG) TABLET PO SCH (07:49)
[2019-11-18] MEDS: Cyanocobalamin (B-12) 1,000 MCG TABLET PO SCH (07:49)
[2019-11-18] MEDS: cephALEXin 250 MG CAPSULE PO SCH (07:49)
[2019-11-18 10:42] VITALS: BP 114/79
== END 2019-11-18 15:47 | DRG 908 ==
LOC: EMEROOARM 14:59 → 2ANU 14:59 → SUATTDRO 17:22 → 2ANU 18:20 → ICNU 11-14 04:19 → 2ANU 11-14 15:16 → SUATTDRO 11-15 12:59
PROVIDERS: ADMIT Student in an Organized Health Care Education/Training Program; ATTEND Internal Medicine

== ENCOUNTER 2019-12-18 14:59 | Inpatient (IN) ==
[2019-12-18] MEDS ORDERED: Piperacillin/Tazobactam 3.375 GM in Water for inj. (sterile) 20 ML IVP ONE (15:24)
[2019-12-18] MEDS ORDERED: 0.9 % Sodium Chloride 1,000 ML IVC ONE ×2 (15:25→15:32)
[2019-12-18] MEDS ORDERED: Acetaminophen 650 MG RECTAL SUPP RC ONE (15:35)
[2019-12-18 15:58] LABS: Bilirubin,Urine Negative (Negative); Blood,Urine Moderate (Negative); Clarity,Urine Turbid (Clear); Color,Urine Yellow (Yellow); Glucose,Urine (UA) Normal (Normal); Ketones,Urine Negative (Negative); Leukocyte Esterase,Urine Large (Negative); Nitrite,Urine Negative (Negative); Protein,Urine 100 mg/dL (Neg-Trace); Specific Gravity,Urine 1.011 (1.010-1.025); Urobilinogen,Urine Normal (Normal)
[2019-12-18 15:59] LABS: Basophils % 0.3 %; Eosinophils % 0.2 %; Hematocrit 30.4 % (35.3-44.9); Hemoglobin 9.4 g/dL (11.5-15.4); Immature Granulocytes % 0.4 % (0-4); Lymphocytes # 0.6 K/mcL (0.6-4.6); Lymphocytes % 5.3 %; Mean Corpuscular HGB Conc 30.9 g/dL (31.6-35.5); Mean Corpuscular Hemoglobin 28.3 pg (28.0-33.3); Mean Corpuscular Volume 91.6 fL (83.0-100.0); Mean Platelet Volume 9.5 fL (9.4-12.4); Monocytes # 0.3 K/mcL (0.0-1.3); Monocytes % 2.7 %; Neutrophils # 10.8 K/mcL (1.6-8.9); Platelet Count 306 K/mcL (140-400); Red Blood Count 3.32 M/mcL (3.82-4.97); Red Cell Distribution Width 14.3 % (11.5-14.5); Segmented Neutrophils % 91.1 %
[2019-12-18 16:01] LABS: Bacteria,Urine None Seen per hpf (None-Few); Hyaline Casts,Urine None Seen per lpf (None-Few); RBC,Urine 15-30 per hpf (0-3); Squamous Epithelial Cell,Urine Moderate per lpf (None-Few); WBC,Urine TNTC per hpf (0-3)
[2019-12-18 16:03] LABS: White Blood Count 11.8 K/mcL (4.3-11.1)
[2019-12-18 16:08] LABS: INR 1.5; Prothrombin Time 16.6 Seconds (9.4-12.1)
[2019-12-18 16:33] LABS: Troponin I 0.29 ng/mL (< 0.04)
[2019-12-18 16:45] LABS: Albumin 3.2 g/dL (3.5-5.7); Albumin/Globulin Ratio 0.8 (1.1-2.2); Bilirubin,Direct 0.1 mg/dL (0.0-0.2); Bilirubin,Indirect 0.3 mg/dL (0.0-1.0); Bilirubin,Total 0.4 mg/dL (0.3-1.0); Calcium 8.4 mg/dL (8.6-10.3); Globulin 4.1 g/dL (2.4-3.5); Phosphorous 3.5 mg/dL (2.7-4.5); Potassium 4.6 mEq/L (3.5-5.1); Thyroid Stimulating Hormone 2.093 mcIU/mL (0.340-5.600); Total Protein 7.3 g/dL (6.4-8.9)
[2019-12-18] MEDS ORDERED: Norepinephrine 4 MG in 0.9 % Sodium Chloride 250 ML IVC SCH (18:58)
[2019-12-18] MEDS ORDERED: 0.9 % Sodium Chloride 250 ML ONE (19:01)
[2019-12-18] MEDS ORDERED: *HR* Norepinephrine 4 MG/4 ML VIAL IVC ONE (19:02)
[2019-12-18] MEDS ORDERED: Naloxone 0.4 MG/ML INJ IVP PRN (20:15)
[2019-12-18] MEDS ORDERED: Ondansetron ODT 4 MG TAB.RAPDIS SL PRN (20:15)
[2019-12-18] MEDS ORDERED: Artificial Tears SOLN 15 ML BOTTLE BOTH EYES PRN (20:21)
[2019-12-18] MEDS: Apixaban 2.5 MG TABLET PO SCH (23:25)
[2019-12-18] MEDS: 0.9 % Sodium Chloride 1,000 ML IVC SCH (23:25)
[2019-12-19] MEDS: Piperacillin/Tazobactam 3.375 GM in 0.9 % Sodium Chloride Mini Bag 100 ML IVPB SCH ×3 (00:39→20:06)
[2019-12-19] MEDS: *HR* OxyCODONE Immed Rel 5 MG TABLET PO PRN (04:40)
[2019-12-19 04:51] LABS: Basophils % 0.3 %; Eosinophils % 0.1 %; Hematocrit 29.9 % (35.3-44.9); Hemoglobin 8.9 g/dL (11.5-15.4); Immature Granulocytes % 0.3 % (0-4); Lymphocytes # 1.1 K/mcL (0.6-4.6); Mean Corpuscular HGB Conc 29.8 g/dL (31.6-35.5); Mean Corpuscular Hemoglobin 27.9 pg (28.0-33.3); Mean Corpuscular Volume 93.7 fL (83.0-100.0); Mean Platelet Volume 9.4 fL (9.4-12.4); Monocytes # 0.4 K/mcL (0.0-1.3); Monocytes % 4.4 %; Platelet Count 248 K/mcL (140-400); Red Blood Count 3.19 M/mcL (3.82-4.97); Red Cell Distribution Width 14.6 % (11.5-14.5); Segmented Neutrophils % 83.9 %; White Blood Count 9.5 K/mcL (4.3-11.1)
[2019-12-19 05:10] LABS: Phosphorous 4.6 mg/dL (2.7-4.5)
[2019-12-19] MEDS: Apixaban 2.5 MG TABLET PO SCH ×2 (08:31→19:49)
[2019-12-19] MEDS: Aspirin Enteric Coated 81 MG Tablet PO SCH (08:31)
[2019-12-19] MEDS: Albumin Human 5% 12.5 GM/250 ML IV.SOLN IVC SCH ×2 (11:27→16:30)
[2019-12-19] MEDS: Budesonide/Formoterol 160/4.5 1 PUFF INH IH SCH ×2 (15:11→20:10)
[2019-12-19] MEDS: Acetaminophen 325 MG TABLET PO PRN (19:49)
[2019-12-19] MEDS: Mirtazapine 15 MG TABLET PO SCH (19:51)
[2019-12-20] MEDS: 0.9 % Sodium Chloride 1,000 ML IVC SCH (04:30)
[2019-12-20 05:39] LABS: Basophils % 0.3 %; Eosinophils # 0.1 K/mcL (0.0-0.6); Eosinophils % 0.9 %; Hematocrit 26.7 % (35.3-44.9); Immature Granulocytes % 0.4 % (0-4); Lymphocytes # 1.1 K/mcL (0.6-4.6); Lymphocytes % 15.7 %; Mean Corpuscular Volume 93.4 fL (83.0-100.0); Mean Platelet Volume 9.9 fL (9.4-12.4); Monocytes # 0.4 K/mcL (0.0-1.3); Monocytes % 5.7 %; Neutrophils # 5.4 K/mcL (1.6-8.9); Platelet Count 238 K/mcL (140-400); Red Blood Count 2.86 M/mcL (3.82-4.97); Red Cell Distribution Width 14.5 % (11.5-14.5)
[2019-12-20 05:51] LABS: Magnesium 1.8 mg/dL (1.6-2.6); Phosphorous 3.9 mg/dL (2.7-4.5); Potassium 3.7 mEq/L (3.5-5.1)
[2019-12-20] MEDS: Acetaminophen 325 MG TABLET PO PRN (06:21)
[2019-12-20] MEDS: Budesonide/Formoterol 160/4.5 1 PUFF INH IH SCH ×2 (07:41→19:52)
[2019-12-20] MEDS: Aspirin Enteric Coated 81 MG Tablet PO SCH (07:50)
[2019-12-20] MEDS: Apixaban 2.5 MG TABLET PO SCH ×2 (07:51→19:47)
[2019-12-20] MEDS: Piperacillin/Tazobactam 3.375 GM in 0.9 % Sodium Chloride Mini Bag 100 ML IVPB SCH ×2 (07:51→19:48)
[2019-12-20] MEDS ORDERED: GuaiFENesin/Pseudophedrine TABLET PO PRN (08:16)
[2019-12-20] MEDS: Mirtazapine 15 MG TABLET PO SCH (19:47)
[2019-12-20] MEDS: *HR* OxyCODONE Immed Rel 5 MG TABLET PO PRN (19:47)
[2019-12-21] MEDS: Budesonide/Formoterol 160/4.5 1 PUFF INH IH SCH ×2 (07:36→20:41)
[2019-12-21] MEDS: Apixaban 2.5 MG TABLET PO SCH ×2 (07:56→21:05)
[2019-12-21] MEDS: Aspirin Enteric Coated 81 MG Tablet PO SCH (07:56)
[2019-12-21] MEDS: Piperacillin/Tazobactam 3.375 GM in 0.9 % Sodium Chloride Mini Bag 100 ML IVPB SCH ×2 (07:56→19:47)
[2019-12-21] MEDS: Furosemide 20 MG/2 ML VIAL IVP SCH (12:39)
[2019-12-21] MEDS: *HR* OxyCODONE Immed Rel 5 MG TABLET PO PRN (19:54)
[2019-12-21] MEDS: Mirtazapine 15 MG TABLET PO SCH (21:05)
[2019-12-21] MEDS: 0.9 % Sodium Chloride 1,000 ML IVC SCH (21:21)
[2019-12-22] MEDS: 0.9 % Sodium Chloride 1,000 ML IVC SCH ×2 (01:38→01:39)
[2019-12-22] MEDS: Furosemide 20 MG/2 ML VIAL IVP SCH (08:41)
[2019-12-22] MEDS: *HR* OxyCODONE Immed Rel 5 MG TABLET PO PRN ×2 (08:41→15:05)
[2019-12-22] MEDS: Aspirin Enteric Coated 81 MG Tablet PO SCH (08:42)
[2019-12-22] MEDS: Piperacillin/Tazobactam 3.375 GM in 0.9 % Sodium Chloride Mini Bag 100 ML IVPB SCH ×2 (08:42→20:18)
[2019-12-22] MEDS: Apixaban 2.5 MG TABLET PO SCH ×2 (08:42→20:19)
[2019-12-22] MEDS: Budesonide/Formoterol 160/4.5 1 PUFF INH IH SCH ×2 (09:33→20:49)
[2019-12-22] MEDS ORDERED: Fosfomycin Tromethamine 3 GM Packet PO ONE (10:45)
[2019-12-22] MEDS: Mirtazapine 15 MG TABLET PO SCH (20:19)
[2019-12-23] MEDS: *HR* OxyCODONE Immed Rel 5 MG TABLET PO PRN ×2 (00:47→20:25)
[2019-12-23 02:35] LABS: Basophils % 0.5 %; Eosinophils # 0.3 K/mcL (0.0-0.6); Eosinophils % 4.2 %; Hematocrit 28.1 % (35.3-44.9); Hemoglobin 8.6 g/dL (11.5-15.4); Immature Granulocytes % 0.3 % (0-4); Lymphocytes # 1.3 K/mcL (0.6-4.6); Lymphocytes % 21.8 %; Mean Corpuscular HGB Conc 30.6 g/dL (31.6-35.5); Mean Corpuscular Hemoglobin 28.1 pg (28.0-33.3); Mean Corpuscular Volume 91.8 fL (83.0-100.0); Monocytes # 0.4 K/mcL (0.0-1.3); Monocytes % 6.2 %; Neutrophils # 4.1 K/mcL (1.6-8.9); Platelet Count 277 K/mcL (140-400); Red Blood Count 3.06 M/mcL (3.82-4.97); Red Cell Distribution Width 14.5 % (11.5-14.5); White Blood Count 6.2 K/mcL (4.3-11.1)
[2019-12-23 02:54] LABS: Calcium 8.1 mg/dL (8.6-10.3); Potassium 2.7 mEq/L (3.5-5.1)
[2019-12-23] MEDS ORDERED: Potassium Chloride 20 MEQ, Lidocaine 1% 2 ML in 0.9 % Sodium Chloride 250 ML IVPB ONE (03:07)
[2019-12-23] MEDS ORDERED: Albumin 25% 25gram/100mL 25 GM/100 ML IV.SOLN IVPB ONE (03:34)
[2019-12-23] MEDS ORDERED: 0.9 % Sodium Chloride 250 ML IVC ONE (05:28)
[2019-12-23] MEDS: Budesonide/Formoterol 160/4.5 1 PUFF INH IH SCH ×2 (07:17→20:03)
[2019-12-23] MEDS ORDERED: Potassium Chloride Elixir 20 MEQ/15 ML UDC PO ONE (07:47)
[2019-12-23] MEDS: Aspirin Enteric Coated 81 MG Tablet PO SCH (09:05)
[2019-12-23] MEDS: Apixaban 2.5 MG TABLET PO SCH ×2 (09:05→20:19)
[2019-12-23] MEDS: Piperacillin/Tazobactam 3.375 GM in 0.9 % Sodium Chloride Mini Bag 100 ML IVPB SCH ×2 (09:06→20:20)
[2019-12-23] MEDS ORDERED: Potassium Chloride 40 MEQ, Lidocaine 1% 2 ML in 0.9 % Sodium Chloride 500 ML IVPB ONE (14:35)
[2019-12-23 14:52] LABS: Magnesium 1.7 mg/dL (1.6-2.6)
[2019-12-23] MEDS: Mirtazapine 15 MG TABLET PO SCH (20:19)
[2019-12-24 03:38] LABS: Basophils % 0.5 %; Eosinophils # 0.4 K/mcL (0.0-0.6); Eosinophils % 5.4 %; Hematocrit 24.5 % (35.3-44.9); Hemoglobin 7.6 g/dL (11.5-15.4); Immature Granulocytes % 0.3 % (0-4); Lymphocytes # 1.6 K/mcL (0.6-4.6); Lymphocytes % 24.7 %; Mean Corpuscular Hemoglobin 28.7 pg (28.0-33.3); Mean Corpuscular Volume 92.5 fL (83.0-100.0); Mean Platelet Volume 10.1 fL (9.4-12.4); Monocytes # 0.4 K/mcL (0.0-1.3); Neutrophils # 4.2 K/mcL (1.6-8.9); Platelet Count 252 K/mcL (140-400); Red Blood Count 2.65 M/mcL (3.82-4.97); Red Cell Distribution Width 14.7 % (11.5-14.5); Segmented Neutrophils % 63.1 %; White Blood Count 6.6 K/mcL (4.3-11.1)
[2019-12-24 03:54] LABS: Calcium 8.1 mg/dL (8.6-10.3); Potassium 3.5 mEq/L (3.5-5.1)
[2019-12-24] MEDS: Budesonide/Formoterol 160/4.5 1 PUFF INH IH SCH (07:44)
[2019-12-24] MEDS: Apixaban 2.5 MG TABLET PO SCH (08:30)
[2019-12-24] MEDS: Aspirin Enteric Coated 81 MG Tablet PO SCH (08:30)
[2019-12-24] MEDS: Piperacillin/Tazobactam 3.375 GM in 0.9 % Sodium Chloride Mini Bag 100 ML IVPB SCH (08:31)
[2019-12-24 11:17] VITALS: BP 117/86
== END 2019-12-24 12:56 | DRG 193 ==
LOC: EMEROOARM 14:59 → 2NENU 14:59 → SUATTDRO 12-19 11:05 → 3NENU 12-19 14:41 → 2ANU 12-21 17:02
PROVIDERS: ADMIT Internal Medicine; ATTEND Family Medicine